=== PATIENT | female | born 1945 | race Caucasian/White ===

== ENCOUNTER 2017-11-19 20:22 | Observation (INO) | payer OTHER ==
[2017-11-19] MEDS ORDERED: ONDANSETRON 4 MG/2 ML VIAL IV PRN (20:31)
[2017-11-19] MEDS ORDERED: HYDROCODONE/APAP 7.5/325 MG TAB PO PRN (20:31)
[2017-11-19] MEDS ORDERED: ACETAMINOPHEN 500 MG TAB PO PRN ×2 (20:31→21:00)
[2017-11-19 21:02] VITALS: BMI 23.2
[2017-11-19] MEDS ORDERED: FENTANYL CITR 100 MCG/2 ML IV PRN (22:09)
[2017-11-19] MEDS: Levofloxacin500mg IV 500 MG/100 ML BAG IV SCH ×2 (22:50→22:52)
[2017-11-19] MEDS: NA CHLORIDE 0.9% 1,000 ML IV SCH (22:52)
[2017-11-20] MEDS: METRONIDAZOLE 500mg IVPB 500 MG/100 ML BAG IV SCH ×4 (00:29→17:44)
[2017-11-20 04:15] LABS: Absolute Lymphocytes (CBC) 0.8 K/uL (0.7-4.9); Absolute Monocytes 0.4 K/uL (0.1-1.3); Absolute Neutrophil 4.6 K/uL (1.8-8.0); Basophils % 0.3 % (0-1.3); Hematocrit 35.2 % (36.0-45.0); Lymphocytes % 13.2 % (15.3-44.8); MCH 33.8 pg (27.0-35.0); MCV 100.4 fL (80-100); MPV 9.2 fL (7.6-11.3); Monocytes % 6.2 % (3.3-12.3); RBC Red Blood Cell Count 3.51 M/uL (3.86-4.86)
[2017-11-20 04:25] LABS: Urine Appearance CLEAR; Urine Bilirubin NEGATIVE (NEG); Urine Blood 1+ (NEG); Urine Color YELLOW; Urine Glucose NEGATIVE (NEG); Urine Protein NEGATIVE (NEG); Urine Specific Gravity >=1.030 (1.005-1.030); Urine Urobilinogen 0.2 mg/dL (0.2-1.0); Urine pH 5.5 (5.0-7.0)
[2017-11-20 04:36] LABS: Albumin 2.7 g/dL (3.4-5.0); Bilirubin Total 0.6 mg/dL (0.2-1.0); Magnesium 1.7 mg/dL (1.8-2.4); Potassium 3.9 mmol/L (3.5-5.1); Protein, Total 6.3 g/dL (6.4-8.2)
[2017-11-20 04:37] LABS: Urine Microscopic Reflex ORDER UMIC
[2017-11-20 05:22] LABS: Urine Bacteria <20 /HPF (<20); Urine Culture Reflex Order NOT NEEDED; Urine RBC <5 /HPF (NONE SEEN)
[2017-11-20] MEDS ORDERED: MAGNESIUM SULFATE 1 gm IVPB 1 GM/100 ML BAG IV ONE (06:00)
--- NOTE | 2017-11-20 07:20 | P.HP ---
Certification for Inpatient Patient admitted to: Inpatient With expected LOS: >2 Midnights Patient will require the following post-hospital care: None Practitioner: I am a practitioner with admitting privileges, knowledge of patient current condition, hospital course, and medical plan of care. Services: Services provided to patient in accordance with Admission requirements found in Title 42 Section 412.3 of the Code of Federal Regulations Patient History Date of Service: 11/19/17 Reason for admission: Small-bowel obstruction History of Present Illness: Patient is a 72-year-old female came to the hospital with persistent small- bowel obstruction. Patient was in the hospital about a year ago with similar complaints. At that time, it was noted that patient had a transition point that was a little distal to the ileum. Patient was admitted to the hospital for further treatment. The mid able to keep the NG tube out and patient is having some bowel sounds. Patient also seems to be having flatus. Patient clinically appears to be doing well at this time. Will continue to monitor abdominal symptoms. Also monitor nausea and vomiting. Allergies adhesive Allergy (Mild, Verified 09/19/17 09:03) Blisters/rash codeine [Codeine] Adverse Reaction (Intermediate, Verified 11/19/17 21:54) Nausea/Vomiting Home Medications: Cyanocobalamin (Vitamin B-12) [Vitamin B-12] 5,000 mcg PO DAILY 08/24/14 Remicade 300 mg IV SEECOM 07/05/15 Folic Acid 0.8 mg PO DAILY 08/11/15 Biotin 10,000 mcg PO DAILY 01/26/16 Lutein 20 mg PO DAILY 03/09/16 Calcium Citrate/Vitamin D3 [Calcium Citrate-Vit D3 Tablet] 630 mg PO DAILY 06/06 Cholecalciferol (Vitamin D3) [Vitamin D 1000 Iu Tab*] 2,000 iu PO DAILY Ferrous Sulfate [Slow Fe] 45 mg PO SEECOM 06/06/16 Prolia 60 mg IM SEECOM 11/05/16 Methotrexate Inj [Methotrexate Sodium Inj*] 1 ml SQ SEECOM 09/19/17 - Past Medical/Surgical History Has patient received pneumonia vaccine in the past: Yes Diabetic: No -: Crohn's disease -: History of rectal bleeding (06/23/14) -: History of colon resection x2 due to bowel obstruction -: Appendectomy -: Tonsillectomy -: Colon resection x2 with anastomosis -: Right kneecap surgery -: Throat surgery Psychosocial/ Personal History: Patient is of 39 years. She has 2 children. She is retired. - Family History Father Medical History: Heart disease, Cancer - Social History Smoking Status: Never smoker Alcohol use: No CD- Drugs: No Caffeine use: No Place of Residence: Home Review of Systems 10-point ROS is otherwise unremarkable Physical Examination - Vital Signs Temperature: 97.2 F Blood Pressure: 117/56 Pulse: 75 Respirations: 14 Pulse Ox (%): 93 - Physical Exam General: Alert, In no apparent distress, Oriented x3 HEENT: Atraumatic, PERRLA, Mucous membr. moist/pink, EOMI, Sclerae nonicteric Neck: Supple, 2+ carotid pulse no bruit, No LAD, Without JVD or thyroid abnormality Respiratory: Clear to auscultation bilaterally, Normal air movement Cardiovascular: Regular rate/rhythm, Normal S1 S2, No murmurs Gastrointestinal: Normal bowel sounds, Soft and benign, Non-distended, No tenderness Musculoskeletal: No clubbing, No swelling, No tenderness Integumentary: No rashes Neurological: Normal gait, Normal speech, Normal strength at 5/5 x4 extr, Normal tone, Sensation intact, Cranial nerves 3-12 intact, Normal affect Lymphatics: No axilla or inguinal lymphadenopathy - Studies Laboratory Data (last 24 hrs) 11/20/17 03:34: Sodium 138, Potassium 3.9, BUN 12, Creatinine 0.70, Glucose 127 H, Phosphorus 4.0, Magnesium 1.7 L, Total Bilirubin 0.6, AST 20, ALT 17, Alkaline Phosphatase 33 L 11/20/17 03:34: WBC 5.8 D, Hgb 11.9 L, Hct 35.2 L, Plt Count 193 Assessment & Plan - Problems (Diagnosis) (1) Crohns disease Onset Date: 06/28/14 Current Visit: No Status: Acute Qualifiers: Gastrointestinal tract location: small and large intestine Digestive disease complication type: with intestinal obstruction Qualified Code(s): K50.812 - Crohn's disease of both small and large intestine with intestinal obstruction (2) Small bowel obstruction Onset Date: 06/28/14 Current Visit: No Status: Acute - Plan Plan: 1. NPO 2. IV fluids 3. Pain control 4. Monitor labs 5. GI and General surgery consultation 6. GI and DVT prophylaxis Discharge Plan: Home Plan to discharge in: Greater than 2 days - Advance Directives Does patient have a Living Will: Yes Does patient have a Durable POA for Healthcare: Yes - Code Status/Comfort Care Code Status Assessed: No Code Status: Full Code Critical Care: No Time Spent Managing PTS Care (In Minutes): 50
[2017-11-20] MEDS ORDERED: KCL 20 MEQ/100 mL IVPB 20 MEQ/100 ML BAG IV SCH (08:00)
[2017-11-20] MEDS ORDERED: ENOXAPARIN 30 MG/0.3 ML SQ SCH (09:00)
[2017-11-20] MEDS ORDERED: POTASSIUM CL SA 10 MEQ TAB PO ONE (09:13)
--- NOTE | 2017-11-20 10:34 | P.PN ---
Subjective Date of Service: 11/20/17 Primary Care Provider: Dr. Flores/Dr. Arroyo Chief Complaint: Small-bowel obstruction Subjective: Improving (Patient had BM this am. No more pain noted) Physical Examination - Vital Signs Temperature: 98.8 F Blood Pressure: 118/62 Pulse: 69 Respirations: 18 Pulse Ox (%): 98 - Physical Exam General: Alert, In no apparent distress, Oriented x3, Cooperative HEENT: Atraumatic, Mucous membr. moist/pink Neck: Supple Respiratory: Clear to auscultation bilaterally, Normal air movement Cardiovascular: Normal pulses, Regular rate/rhythm Gastrointestinal: Normal bowel sounds, Soft and benign, Non-distended, No tenderness, No masses, No rebound, No guarding Musculoskeletal: No erythema, No tenderness, No warmth Integumentary: No tenderness/swelling, No erythema, No warmth, No cyanosis Neurological: Normal speech, Normal strength at 5/5 x4 extr, Normal tone, Normal affect - Studies Laboratory Data (last 24 hrs) 11/20/17 03:34: Sodium 138, Potassium 3.9, BUN 12, Creatinine 0.70, Glucose 127 H, Phosphorus 4.0, Magnesium 1.7 L, Total Bilirubin 0.6, AST 20, ALT 17, Alkaline Phosphatase 33 L 11/20/17 03:34: WBC 5.8 D, Hgb 11.9 L, Hct 35.2 L, Plt Count 193 Medications List Reviewed: Yes Assessment & Plan - Problems (Diagnosis) (1) Anemia, iron deficiency Onset Date: 06/28/14 Current Visit: No Status: Chronic Plan: Will monitor closely. Will restart Iron once able to take oral well. Qualifiers: Iron deficiency anemia type: unspecified iron deficiency Qualified Code(s) : D50.9 - Iron deficiency anemia, unspecified (2) Crohns disease Onset Date: 06/28/14 Current Visit: No Status: Chronic Plan: Patient with history of Crohn's. Abdominal pain better. Will check for C. Diff. Will continue with IV antibiotics. Will advance diet. Will discuss with GI. Case discussed with Surgery. No intervention needed. Qualifiers: Gastrointestinal tract location: small and large intestine Digestive disease complication type: with intestinal obstruction Qualified Code(s): K50.812 - Crohn's disease of both small and large intestine with intestinal obstruction (3) Small bowel obstruction Onset Date: 06/28/14 Current Visit: No Status: Acute Plan: Much improved. Appears resolved. Continue with IV fluid and antibiotics. Will advance diet. Case discussed with Surgery. Will discuss with GI. Discharge Plan: Home Plan to discharge in: 24 Hours Time Spent Managing Pts Care (In Minutes): 55
[2017-11-20] MEDS: NA CHLORIDE 0.9% 1,000 ML IV SCH ×3 (12:08→20:26)
[2017-11-20 22:41] VITALS: O2SAT 94
[2017-11-21] MEDS ORDERED: BENZONATATE 100 MG CAP PO PRN
[2017-11-21 04:44] LABS: Absolute Lymphocytes (CBC) 1.7 K/uL (0.7-4.9); Absolute Monocytes 0.9 K/uL (0.1-1.3); Absolute Neutrophil 5.2 K/uL (1.8-8.0); Basophils % 0.4 % (0-1.3); Eosinophils % 2.9 % (0-4.4); Hematocrit 36.6 % (36.0-45.0); Lymphocytes % 21.1 % (15.3-44.8); MCH 33.3 pg (27.0-35.0); MCV 101.7 fL (80-100); MPV 9.3 fL (7.6-11.3); Monocytes % 11.3 % (3.3-12.3)
[2017-11-21 04:50] LABS: Bilirubin Total 0.6 mg/dL (0.2-1.0); Potassium 3.9 mmol/L (3.5-5.1); Protein, Total 6.4 g/dL (6.4-8.2)
[2017-11-21] MEDS ORDERED: POTASSIUM 25 MEQ EFFERV TAB PO ONE (04:57)
[2017-11-21 05:33] VITALS: TEMP 97.4
[2017-11-21] MEDS: METRONIDAZOLE 500mg IVPB 500 MG/100 ML BAG IV SCH ×2 (05:35)
[2017-11-21] MEDS ORDERED: PANTOPRAZOLE 40MG TABLET PO SCH (06:30)
--- NOTE | 2017-11-21 08:18 | P.DS ---
Admission Date: 11/19/17 Discharge Date: 11/21/17 Primary Care Provider: Dr. Flores/Dr. Arroyo Disposition: ROUTINE DISCHARGE Discharge Condition: GOOD Reason for Admission: Small-bowel obstruction Consultations: GI-Dr. Arroyo Surgery-Dr. Dow Procedures: CT scan: COMPARISON: November 2016 TECHNIQUE: Computed axial tomography of the abdomen and pelvis was obtained. 100 cc Isovue-300 is administered intravenously. Oral contrast was given. All CT scans are performed using dose optimization technique as appropriate and may include automated exposure control or mA/KV adjustment according to patient size. FINDINGS: The liver, spleen, pancreas, adrenals and kidneys appear unremarkable. Postsurgical changes involve the bowel. Jejunum and most of the ileum are moderately dilated. The very distal ileum is decompressed. The colon is decompressed. Free air is not noted. IMPRESSION: Moderate distal small bowel obstruction - Problems (1) Anemia, iron deficiency Onset Date: 06/28/14 Current Visit: No Status: Chronic Qualifiers: Iron deficiency anemia type: unspecified iron deficiency Qualified Code(s) : D50.9 - Iron deficiency anemia, unspecified (2) Crohns disease Onset Date: 06/28/14 Current Visit: No Status: Chronic Qualifiers: Gastrointestinal tract location: small and large intestine Digestive disease complication type: with intestinal obstruction Qualified Code(s): K50.812 - Crohn's disease of both small and large intestine with intestinal obstruction (3) Small bowel obstruction Onset Date: 06/28/14 Current Visit: No Status: Acute Brief History of Present Illness: 72-year-old female present emergency room after she was evaluated by her GI specialist in found to have small bowel obstruction. Patient was admitted for treatment. Hospital Course: CT scan showed moderate distal small bowel obstruction. The patient was treated in the hospital. She received IV fluids. She also was started on antibiotic therapy. The patient did well during the stay. Her obstruction resolved. Patient was evaluated by GI and surgery. No surgical intervention was required. Patient was able to tolerate her diet at discharge. She was ambulating well. At discharge she will continue with a soft diet. She may advance as tolerated. Patient with history of Crohn's colitis. Patient will follow up with GI in 1 week to follow up this hospitalization. Patient will likely need colonoscopy in 4-6 weeks to monitor her progress. Vital Signs/Physical Exam: Temp Pulse Resp BP Pulse Ox 97.4 F 76 16 143/67 H 95 11/21/17 04:00 11/21/17 04:00 11/21/17 04:00 11/21/17 04:00 11/21/17 04:00 General: Alert, In no apparent distress, Oriented x3, Cooperative HEENT: Atraumatic, Mucous membr. moist/pink Neck: Supple, No Thyromegaly Respiratory: Clear to auscultation bilaterally, Normal air movement Cardiovascular: Normal pulses, Regular rate/rhythm Gastrointestinal: Normal bowel sounds, Soft and benign, Non-distended, No ascites, No tenderness, No masses, No rebound, No guarding Musculoskeletal: No erythema, No tenderness, No warmth Integumentary: No tenderness/swelling, No erythema, No warmth, No cyanosis Neurological: Normal speech, Normal strength at 5/5 x4 extr, Normal tone, Normal affect Lymphatics: No axilla or inguinal lymphadenopathy Laboratory Data at Discharge: WBC 8.1 K/uL (4.3-10.9) D 11/21/17 03:55 Hgb 12.0 g/dL (12.0-15.0) 11/21/17 03:55 Hct 36.6 % (36.0-45.0) 11/21/17 03:55 Plt Count 174 K/uL (152-406) 11/21/17 03:55 Sodium 142 mmol/L (136-145) 11/21/17 03:55 Potassium 3.9 mmol/L (3.5-5.1) 11/21/17 03:55 BUN 8 mg/dL (7-18) 11/21/17 03:55 Creatinine 0.70 mg/dL (0.55-1.3) 11/21/17 03:55 Glucose 90 mg/dL (74-106) 11/21/17 03:55 Phosphorus 4.0 mg/dL (2.5-4.9) 11/20/17 03:34 Magnesium 2.0 mg/dL (1.8-2.4) 11/21/17 03:55 Total Bilirubin 0.6 mg/dL (0.2-1.0) 11/21/17 03:55 AST 22 U/L (15-37) 11/21/17 03:55 ALT 14 U/L (12-78) 11/21/17 03:55 Alkaline Phosphatase 33 U/L (45-117) L 11/21/17 03:55 Home Medications: Cyanocobalamin (Vitamin B-12) [Vitamin B-12] 5,000 mcg PO DAILY 08/24/14 Remicade 300 mg IV SEECOM 07/05/15 Folic Acid 0.8 mg PO DAILY 08/11/15 Biotin 10,000 mcg PO DAILY 01/26/16 Lutein 20 mg PO DAILY 03/09/16 Calcium Citrate/Vitamin D3 [Calcium Citrate-Vit D3 Tablet] 630 mg PO DAILY 06/06 Cholecalciferol (Vitamin D3) [Vitamin D 1000 Iu Tab*] 2,000 iu PO DAILY Ferrous Sulfate [Slow Fe] 45 mg PO SEECOM 06/06/16 Prolia 60 mg IM SEECOM 11/05/16 Methotrexate Inj [Methotrexate Sodium Inj*] 1 ml SQ SEECOM 09/19/17 Patient Discharge Instructions: 1. Patient will need a follow up with her PCP in 1 week to follow up this hospitalization. 2. Patient presented with abdominal pain to have distal small-bowel obstruction. This resolved. Patient seen by GI and surgery. No intervention required. At discharge she is without any abdominal pain. She will continue with a soft diet and advance as tolerated. Patient will follow up with GI in 1 week to follow up her care. Patient may require colonoscopy in the future. Patient with history of Crohn's colitis. She will continue with her other medication. Diet: soft GI Activity: Ad carlton Time spent managing pt's care (in minutes): 55
[2017-11-21 09:12] VITALS: BP 137/76
--- NOTE | 2017-11-27 23:48 | CON ---
Date of Consultation: 11/20/2017 Reason For Consultation: Left lower quadrant pain with small bowel obstruction and Crohn's flare. History Of Present Illness: This patient is a 72-year-old white female with history of Crohn disease and status post multiple small bowel obstructions in the past. The patient stated that she was in [facility] until she went to [employer] sandwich when she was on vacation, ate a [employer] sandwich with beef, lettuce, tomatoes, mayonnaise, and pickles. The patient states she has eaten some lettuce at home without difficulty. She thinks it may have been the lettuce pickles or other. That resulted in her having a flare. Within an hour, she began having left lower quadran t pain, it increased to 10/10; nausea; vomiting; fevers; and chills. She came to GI office, was give n some steroids and started her on antibiotics. CT scan was ordered. CT scan revealed a moderate sm all bowel obstruction at distal ileum. The patient was admitted to the hospital for further manageme nt and care. 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 Past Surgical History: Appendectomy, tonsillectomy, , abscess removal, perineal abscess, an d PillCam removed endoscopically being stuck in terminal ileum due to strictures. Medications: Include Remicade, methotrexate, vitamin B12, Zegerid, Os-Mckinley D, and folate. Allergies: CODEINE CAUSES NAUSEA AND VOMITING. Social History: She is . Lives at home with her . She is retired. No tobacco. No a lcohol. Review of Systems: The patient has had left lower quadrant pain 10/10 on admission, now down to 0; nausea; vomiting; fev ers; and chills. She feels 90% better, she says, already since admission yesterday. Flatus before a dmission was minimal. Now, she has flatus and bowel movements, she reports. She denies any melena, hematochezia, hematemesis, coffee-ground emesis, hematuria, dysuria, polydipsia, or hemoptysis. No c hest pain, shortness of breath, seizure, syncope, lower extremity paresthesias, muscle aches, joint a ches, or backaches. Physical Examination: Vital Signs: The patient is afebrile. Vital signs are stable. On the , she had a temperature o f 98.8 degrees Fahrenheit, pulse 69, respirations 18, blood pressure 118/62, and O2 saturation 98%, a nd she is 5 feet 3 inches, 131 pounds, and BMI of 23.2. HEENT: Normocephalic, atraumatic. Anicteric. Pupils are equal, round, and reactive to light. Extr aocular movements are intact. Oropharynx is clear. Neck: Supple. No masses. Thyroid two times normal size. Respirations: Clear to auscultation bilaterally. Cardiac: Regular rate and rhythm. No gallops or rubs. Abdomen: Positive bowel sounds. Soft, maybe some mild tympany, but no peritoneal Maharaj sign. No r ebound. Extremities: No clubbing, cyanosis, or edema. 2+ pulses. Neuro: Alert and oriented x3. Grossly nonfocal. 5/5 motor strength. Sensation to light touch. Laboratory Data: The patient has a white count of 5.8, down from 9.2 the day prior; hemoglobin 11.9; hematocrit 35.2; MCV of 100; platelet count of 193; polys of 80%; lymphocytes 13%; and monocytes 6%. Sodium 138, potassium 3.9, chloride 108, bicarb 28, BUN is 12, creatinine of 0.7, glucose 127, calc ium 8.0, phosphorus 4.0, total bilirubin 0.6, and magnesium 1.7. AST of 20, ALT of 17, and alkaline phosphatase 33. Total protein 6.3; albumin 2.7; amylase 74, normal; lipase 178 and was normal. On t he , UA had 2+ ketones, trace blood, otherwise negative. Imaging: CT abdomen and pelvis reveals moderate distal small bowel obstruction in the ileum. The je junum was moderately dilated as well as some very distal ileum appears to be compressed pr obable. Impression: Small bowel obstruction in the distal ileum, Crohn disease flare after eating sandwich with beef, lettuce, tomatoes, mayonnaise, and large pickle she states. Pain was 10/10 in t he left lower quadrant prior to admission, now down to none on therapy including IV antibiotics, IV s teroids, and IV fluids. She had nausea, vomiting, fevers, chills, and feels 90% better since [facility] admission. Minimal flatus prior to admission, now with flatus and bowel movements. Recommendations: 1.Continue IV fluids, IV antibiotics, and IV steroids. 2.Continue Remicade and methotrexate as an outpatient. 3.Diet to advance slowly to include full liquids, low-residue diet. 4.GI Clinic followup next week. LESIA/MARTELL Voice ID: [id number] Report ID: [id number]
== END 2017-11-21 10:24 | disposition home or self-care (01) ==
LOC: INTOOBSV 20:24 → 4TH 20:24
PROVIDERS: ADMIT Hospitalist; ATTEND Family Medicine
DX: K50.812 Crohn's disease of both small and large intestine with intestinal obstruction (principal); D50.9 Iron deficiency anemia, unspecified; Z79.899 Other long term (current) drug therapy; Z88.5 Allergy status to narcotic agent; Z91.048 Other nonmedicinal substance allergy status
CPT/HCPCS: 36415; 74177; 80053; 81003; 81015; 82150; 83690; 83735; 84100; 85025; 85652; G0378; G0379; J1650; J3010; J3475; J7030; Q9967

== ENCOUNTER 2018-04-21 08:31 | Day surgery (SDC) | payer OTHER ==
[2018-04-21] MEDS ORDERED: NA CHLORIDE 0.9% IV ONE (09:00)
[2018-04-21] MEDS ORDERED: INFLIXIMAB DYYB IV ONE (09:00)
[2018-04-21] MEDS ORDERED: NA CHLORIDE 0.9% 250 ML ONE (09:03)
[2018-04-21 09:13] VITALS: BMI 22.8
[2018-04-21 11:44] VITALS: O2SAT 96
[2018-04-21 11:46] VITALS: BP 113/59; TEMP 97.7
== END 2018-04-21 11:42 | disposition home or self-care (01) ==
LOC: DS 08:31
PROVIDERS: ATTEND Internal Medicine Gastroenterology
DX: K50.90 Crohn's disease, unspecified, without complications (principal)
CPT/HCPCS: 96365; 96366; Q5103

== ENCOUNTER 2018-05-23 08:27 | Emergency (ER) | payer OTHER ==
[2018-05-23 09:28] LABS: Absolute Monocytes 0.9 K/uL (0.1-1.3); Absolute Neutrophil 7.1 K/uL (1.8-8.0); Basophils % 0.3 % (0-1.3); Eosinophils % 1.2 % (0-4.4); Hematocrit 37.9 % (36.0-45.0); Lymphocytes % 10.6 % (15.3-44.8); MCH 34.2 pg (27.0-35.0); MCV 98.9 fL (80-100); MPV 8.7 fL (7.6-11.3); Monocytes % 10.2 % (3.3-12.3); RBC Red Blood Cell Count 3.83 M/uL (3.86-4.86)
[2018-05-23 09:46] LABS: Albumin 3.1 g/dL (3.4-5.0); Bilirubin Direct 0.3 mg/dL (0-0.2); Bilirubin Total 1.2 mg/dL (0.2-1.0); Potassium 3.8 mmol/L (3.5-5.1); Protein, Total 6.9 g/dL (6.4-8.2)
--- NOTE | 2018-05-23 11:21 | RAD REPORT ---
EXAM DESCRIPTION: CT - Abdomen Pelvis W Contrast - 05/23/2018 11:07 am CLINICAL HISTORY: Abdominal pain. COMPARISON: November 2017 TECHNIQUE: Computed axial tomography of the abdomen and pelvis was obtained. 100 cc Isovue-300 is ad ministered intravenously. Oral contrast was given. All CT scans are performed using dose optimization technique as appropriate and may include automated exposure control or mA/KV adjustment according to patient size. FINDINGS: The liver, spleen, pancreas, adrenals and kidneys appear unremarkable. The wall of the terminal ileum is moderately thickened. Mild to moderate thickening of several additi onal loops of small bowel wall present. Several loops are borderline dilated. A discrete transitional point is not noted. Wall of the rectum is mildly thickened. Curvilinear increased density involving the rectum may be rel ated to suture. Free air is not noted Mild gallbladder distention is unchanged IMPRESSION: Mild to moderate small bowel wall thickening consistent with Crohn's disease. Mild dilat ation of several small bowel loops may be related to stricture/ileus.
--- NOTE | 2018-05-23 13:23 | ER ---
Nurse's Notes [facility] Name: Jv Sepulveda Age: 73 yrs Sex: Female : 1945 Arrival Date: 05/23/2018 Time: 08:32 Bed 15 Private MD: Benjamin Flores Diagnosis: Crohn's disease of large intestine Presentation: 05/23 08:40 Presenting complaint: Patient states: i have Crohns disease, last Saturday, i started hj this flare up episode, abd cramps Left lower abd pain, N/V pain of 10/10; vomited x 1 today, denies diarrhea; denies fever and chills;. Transition of care: patient was not received from another setting of care. Onset of symptoms was May 23, 2018. Risk Assessment: Do you want to hurt yourself or someone else? Patient reports no desire to harm self or others. Initial Sepsis Screen: Does the patient meet any 2 criteria? No. Patient's initial sepsis screen is negative. Does the patient have a suspected source of infection? Yes: Other: possible Chron's disease. Care prior to arrival: None. 08:40 Method Of Arrival: Ambulatory 08:40 Acuity: MAGED 3 Triage Assessment: 08:45 General: Appears in no apparent distress. uncomfortable, Behavior is calm, cooperative, hj appropriate for age. Pain: Complains of pain in abdomen. EENT: No signs and/or symptoms were reported regarding the EENT system. Neuro: Level of Consciousness is awake, alert, obeys commands, Oriented to person, place, time, situation, Appropriate for age. Cardiovascular: Heart tones S1 S2 present Capillary refill < 3 seconds Patient's skin is warm and dry. Respiratory: Airway is patent Respiratory effort is even, unlabored, Respiratory pattern is regular, symmetrical. GI: Reports lower abdominal pain, nausea, vomiting. : No signs and/or symptoms were reported regarding the genitourinary system. Derm: No signs and/or symptoms reported regarding the dermatologic system. Musculoskeletal: No signs and/or symptoms reported regarding the musculoskeletal system. Historical: - Allergies: 08:44 Codeine; hj - Home Meds: 08:44 calcium citrate 630 mg Oral gran daily [Active]; Vitamin D 2000 IU Oral daily [Active]; Vitamin B-12 500 mcg Oral lozg daily [Active]; folic acid 800 mcg Oral tab 1 tab once daily [Active]; biotin 10,000 mcg Oral cap daily [Active]; lutein 20 mg Oral tab daily [Active]; Slow Fe 45 mg Oral daily [Active]; Remicade 100 mg intravenous solr every 6 wks [Active]; methotrexate sodium (PF) 1 gram injection solr once wkly [Active]; Premarin 25 mg injection solr [Active]; - PMHx: 08:44 chrons disease; hj - PSHx: 08:44 colon surgery; Appendectomy; Cholecystectomy; Knee surgery; hj - Immunization history:: Adult Immunizations up to date. - Social history:: Smoking status: Patient/guardian denies using tobacco, Patient/guardian denies using alcohol. - Ebola Screening: : Patient negative for fever greater than or equal to 101.5 degrees Fahrenheit, and additional compatible Ebola Virus Disease symptoms Patient denies exposure to infectious person Patient denies travel to an Ebola-affected area in the 21 days before illness onset. Screenin:46 Abuse screen: Denies threats or abuse. Denies injuries from another. Nutritional hj screening: No deficits noted. Tuberculosis screening: No symptoms or risk factors identified. Fall Risk None identified. Assessment: 08:46 GI: Bowel sounds present X 4 quads. hj 08:47 Reassessment: see triage for assessment;. hj 09:40 Reassessment: called polysom tech; pt finished contrast;. hj 11:29 Reassessment: Patient appears in no apparent distress at this time. No changes from la1 previously documented assessment. Patient and/or family updated on plan of care and expected duration. Pain level reassessed. Patient is alert, oriented x 3, equal unlabored respirations, skin warm/dry/pink. Vital Signs: 08:47 BP 121 / 71; Pulse 80; Resp 18; Temp 97.2(TE); Pulse Ox 100% on R/A; Weight 58.51 kg; hj Height 5 ft. 3 in. (160.02 cm); Pain 10/10; 10:53 BP 121 / 73; Pulse 71; Resp 18; Pulse Ox 98% on R/A; la1 12:13 BP 122 / 69; Pulse 72; Resp 17; Pulse Ox 98% on R/A; mh5 13:03 BP 117 / 59; Pulse 71; Resp 16; Pulse Ox 95% on R/A; mh5 08:47 Body Mass Index 22.85 (58.51 kg, 160.02 cm) ED Course: 08:32 Patient arrived in ED. mr 08:32 Benjamin Flores MD is Private Physician. mr 08:39 [facility] snw 08:39 Oscar Gandhi MD is Attending Physician. snw 08:40 Ajith Pete, BALA is Primary Nurse. hj 08:41 Triage completed. hj 08:46 Arm band placed on right wrist. hj 08:46 Patient has correct armband on for positive identification. Placed in gown. Bed in low hj position. Call light in reach. Side rails up X 1. Adult w/ patient. 09:20 Initial lab(s) drawn, by az, sent to lab. First set of blood cultures drawn by az. hj 09:23 Inserted saline lock: 22 gauge in right forearm, using aseptic technique. Blood hj collected. 09:34 Second set of blood cultures drawn by me. hj 09:44 Report given to BALA Angelo. hj 10:00 Petey Brannon, RN is Primary Nurse. la1 11:05 CT completed. Patient tolerated procedure well. Patient moved to CT via wheelchair. Patient moved back from CT. 11:09 CT Abd/Pelvis - W/Contrast In Process Unspecified. EDMS 13:20 Benjamin Flores MD is Referral Physician. snw 13:27 IV discontinued, Pressure dressing applied. 5 13:28 No provider procedures requiring assistance completed. IV discontinued, bleeding la1 controlled, No redness/swelling at site. Pressure dressing applied. Administered Medications: 09:32 Drug: fentaNYL (PF) 25 mcg Route: IVP; Site: right forearm; hj 13:28 Follow up: Response: No adverse reaction; Pain is decreased la1 09:32 Drug: Phenergan 6.25 mg Route: IVP; Site: right forearm; hj 13:28 Follow up: Response: No adverse reaction la1 09:33 Drug: NS 0.9% 500 ml Route: IV; Rate: bolus; Site: right forearm; hj 10:30 Follow up: IV Status: Infusion continued la1 09:33 Drug: NS 0.9% 1000 ml Route: IV; Rate: 125 ml/hr; Site: right forearm; hj 13:29 Follow up: IV Status: Completed infusion la1 Outcome: 13:22 Discharge ordered by . hans 13:28 Discharged to home ambulatory. la1 13:28 Condition: stable 13:28 Discharge instructions given to patient, Instructed on discharge instructions, follow up and referral plans. medication usage, Demonstrated understanding of instructions, follow-up care, medications, Prescriptions given X 1. 13:29 Patient left the ED. la1 Signatures: Dispatcher [employer] EDMS Rand Mackay, CHENGC STAMP MOUNTER-Monae Downs mr Ayoub, Petey Schilling, RN RN la1 Ajith Pete RN BALA Amber Jaquez [facility] Corrections: (The following items were deleted from the chart) 09:51 08:40 Initial Sepsis Screen: Does the patient meet any 2 criteria? No. Patient's hj initial sepsis screen is negative. Does the patient have a suspected source of infection? No. Patient's initial sepsis screen is negative.
--- NOTE | 2018-05-23 13:24 | EDPHYS ---
Physician Documentation [facility] Name: Jv Sepulveda Age: 73 yrs Sex: Female : 1945 Arrival Date: 05/23/2018 Time: 08:32 Bed 15 Private MD: Benjamin Flores ED Physician Oscar Gandhi HPI: 05/23 08:57 This 73 yrs old Female presents to ER via Ambulatory with complaints of snw Abdominal Pain. 08:57 The patient presents with abdominal pain in the left lower quadrant. Onset: The snw symptoms/episode began/occurred suddenly, 3 day(s) ago, and became worse and became persistent. The symptoms do not radiate. Associated signs and symptoms: Pertinent positives: nausea and vomiting. The symptoms are described as steady, twisting. Severity of pain: At its worst the pain was moderate severe. The patient has experienced similar episodes in the past, a few times, with bowel obs. The patient has not recently seen a physician. sees Dr. Flores and Dr. Arroyo. Hx of crohn's. Historical: - Allergies: 08:44 Codeine; hj - Home Meds: 08:44 calcium citrate 630 mg Oral gran daily [Active]; Vitamin D 2000 IU Oral daily [Active]; hj Vitamin B-12 500 mcg Oral lozg daily [Active]; folic acid 800 mcg Oral tab 1 tab once daily [Active]; biotin 10,000 mcg Oral cap daily [Active]; lutein 20 mg Oral tab daily [Active]; Slow Fe 45 mg Oral daily [Active]; Remicade 100 mg intravenous solr every 6 wks [Active]; methotrexate sodium (PF) 1 gram injection solr once wkly [Active]; Premarin 25 mg injection solr [Active]; - PMHx: 08:44 chrons disease; hj - PSHx: 08:44 colon surgery; Appendectomy; Cholecystectomy; Knee surgery; hj - Immunization history:: Adult Immunizations up to date. - Social history:: Smoking status: Patient/guardian denies using tobacco, Patient/guardian denies using alcohol. - Ebola Screening: : Patient negative for fever greater than or equal to 101.5 degrees Fahrenheit, and additional compatible Ebola Virus Disease symptoms Patient denies exposure to infectious person Patient denies travel to an Ebola-affected area in the 21 days before illness onset. ROS: 08:57 Constitutional: Negative for fever and weight loss, + chills Eyes: Negative for injury, snw pain, redness, and discharge, ENT: Negative for injury, pain, and discharge, Neck: Negative for injury, pain, and swelling, Cardiovascular: Negative for chest pain, palpitations, and edema, Respiratory: Negative for shortness of breath, cough, wheezing, and pleuritic chest pain, Back: Negative for injury and pain, : Negative for injury, bleeding, discharge, and swelling, MS/Extremity: Negative for injury and deformity, Skin: Negative for injury, rash, and discoloration, Neuro: Negative for headache, weakness, numbness, tingling, and seizure. 08:57 Abdomen/GI: Positive for abdominal pain, nausea and vomiting, Negative for hematemesis, black/tarry stool, rectal pain, rectal bleeding. Exam: 08:56 Constitutional: This is a well developed, well nourished patient who is awake, alert, snw and in no acute distress. Head/Face: Normocephalic, atraumatic. Eyes: Pupils equal round and reactive to light, extra-ocular motions intact. Lids and lashes normal. Conjunctiva and sclera are non-icteric and not injected. Cornea within normal limits. Periorbital areas with no swelling, redness, or edema. ENT: Nares patent. No nasal discharge, no septal abnormalities noted. Tympanic membranes are normal and external auditory canals are clear. Oropharynx with no redness, swelling, or masses, exudates, or evidence of obstruction, uvula midline. Mucous membranes moist. Neck: Trachea midline, no thyromegaly or masses palpated, and no cervical lymphadenopathy. Supple, full range of motion without nuchal rigidity, or vertebral point tenderness. No Meningismus. Chest/axilla: Normal chest wall appearance and motion. Nontender with no deformity. No lesions are appreciated. Cardiovascular: Regular rate and rhythm with a normal S1 and S2. No gallops, murmurs, or rubs. Normal PMI, no JVD. No pulse deficits. Respiratory: Lungs have equal breath sounds bilaterally, clear to auscultation and percussion. No rales, rhonchi or wheezes noted. No increased work of breathing, no retractions or nasal flaring. Back: No spinal tenderness. No costovertebral tenderness. Full range of motion. Skin: Warm, dry with normal turgor. Normal color with no rashes, no lesions, and no evidence of cellulitis. MS/ Extremity: Pulses equal, no cyanosis. Neurovascular intact. Full, normal range of motion. Neuro: Awake and alert, GCS 15, oriented to person, place, time, and situation. Cranial nerves II-XII grossly intact. Motor strength 5/5 in all extremities. Sensory grossly intact. Cerebellar exam normal. Normal gait. Psych: Awake, alert, with orientation to person, place and time. Behavior, mood, and affect are within normal limits. 08:56 Abdomen/GI: Inspection: abdomen appears normal, Bowel sounds: diminished, in all quadrants, Palpation: moderate abdominal tenderness, in the left lower quadrant. Vital Signs: 08:47 BP 121 / 71; Pulse 80; Resp 18; Temp 97.2(TE); Pulse Ox 100% on R/A; Weight 58.51 kg; hj Height 5 ft. 3 in. (160.02 cm); Pain 10/10; 10:53 BP 121 / 73; Pulse 71; Resp 18; Pulse Ox 98% on R/A; la1 12:13 BP 122 / 69; Pulse 72; Resp 17; Pulse Ox 98% on R/A; mh5 13:03 BP 117 / 59; Pulse 71; Resp 16; Pulse Ox 95% on R/A; mh5 08:47 Body Mass Index 22.85 (58.51 kg, 160.02 cm) MDM: 08:40 Patient medically screened. snw 11:41 Data reviewed: vital signs, nurses notes. Data interpreted: Pulse oximetry: on room air snw is 98 %. Interpretation: normal. Counseling: I had a detailed discussion with the patient and/or guardian regarding: the historical points, exam findings, and any diagnostic results supporting the discharge/admit diagnosis, lab results, radiology results. Physician consultation: Malu Nair MD was called at 11:42, was contacted at 11:42, regarding patient's condition, possible admission, increased IVF, done. 11:42 Special discussion: pt states post CT she had BM, is feeling much better. Okay with snw plan to give additional IVF and po challenge and discharge from ED with reglan . 05/23 08:56 Order name: Basic Metabolic Panel; Complete Time: 09:51 snw 05/23 08:56 Order name: CBC with Diff; Complete Time: 09:30 snw 05/23 08:56 Order name: Creatinine for Radiology; Complete Time: 09:44 snw 05/23 08:56 Order name: Hepatic Function; Complete Time: 09:51 snw 05/23 08:56 Order name: Lipase; Complete Time: 09:51 snw 05/23 08:56 Order name: Blood Culture Adult (2) snw 05/23 08:56 Order name: IV Saline Lock; Complete Time: 09:24 snw 05/23 08:56 Order name: Labs collected and sent; Complete Time: 09:24 snw 05/23 08:56 Order name: CT Abd/Pelvis - W/Contrast; Complete Time: 11:25 snw 05/23 11:41 Order name: Misc. Order: rate increased to 250ml/hr; Complete Time: 11:41 snw Administered Medications: 09:32 Drug: fentaNYL (PF) 25 mcg Route: IVP; Site: right forearm; hj 13:28 Follow up: Response: No adverse reaction; Pain is decreased la1 09:32 Drug: Phenergan 6.25 mg Route: IVP; Site: right forearm; hj 13:28 Follow up: Response: No adverse reaction la1 09:33 Drug: NS 0.9% 500 ml Route: IV; Rate: bolus; Site: right forearm; hj 10:30 Follow up: IV Status: Infusion continued la1 09:33 Drug: NS 0.9% 1000 ml Route: IV; Rate: 125 ml/hr; Site: right forearm; hj 13:29 Follow up: IV Status: Completed infusion la1 Disposition: 15:56 Co-signature as Attending Physician, Oscar Gandhi MD. rn Disposition: 05/23/18 13:22 Discharged to Home. Impression: Crohn's disease of large intestine. - Condition is Stable. - Discharge Instructions: Abdominal Pain, Adult, Crohn Disease. - Prescriptions for Reglan 10 mg Oral Tablet - take 1 tablet by ORAL route every 8 hours take 30 minutes before meals and at bedtime; 16 tablet. - Medication Reconciliation Form, Thank You Letter, Antibiotic Education, Prescription Opioid Use form. - Follow up: Benjamin Flores MD; When: 2 - 3 days; Reason: Recheck today's complaints, Continuance of care, Re-evaluation by your physician. Follow up: Emergency Department; When: As needed; Reason: Worsening of condition. Signatures: Dispatcher [employer] EDRand Vargas, EULALIA FIELD SUPPORT REPRESENTATIVE-Csnw Oscar Gandhi MD MD rn Attema, Lee, RN RN la1 Ajith Pete RN RN Corrections: (The following items were deleted from the chart) 13:29 13:22 05/23/2018 13:22 Discharged to Home. Impression: Crohn's disease of large la1 intestine. Condition is Stable. Forms are Medication Reconciliation Form, Thank You Letter, Antibiotic Education, Prescription Opioid Use. Follow up: Benjamin Flores; When: 2 - 3 days; Reason: Recheck today's complaints, Continuance of care, Re-evaluation by your physician. Follow up: Emergency Department; When: As needed; Reason: Worsening of condition. snw
[2018-05-23 13:44] VITALS: TEMP 97.2
[2018-05-23 13:47] VITALS: BP 117/59; O2SAT 95
--- OUTSIDE RECORDS SUMMARY | 2018-05-23 18:16 | XMS REPORT | Continuity of Care Document ---
:1945 Author Organization Interface Problems Problem Status Onset Classification Date Comments Source Date Reported Chest pain Active 06/07/19 Finding 09/19/2017 [facility] [place] Crohns disease Active 06/28/19 Finding 09/19/2017 [facility] [place] Anemia, iron Active 06/28/19 Finding 09/19/[address] [facility] deficiency 15 - [place] Small bowel Active 06/28/19 Finding 09/19/[address] [facility] obstruction 15 - [place] Abnormal CT of Active Finding 09/19/[address] [facility] the abdomen - [place] Stricture Active Finding 09/19/[address] [facility] intestinal - [place] Medications Medication Details Route Status Patient Ordering Order Source Instructions Provider Date Methotrexate Inj Active [facility] [place] Ciprofloxacin Hcl DAILY Active [facility] [place] Metronidazole DAILY Active [facility] [place] Acetaminophen SEE Active [facility] COMMENT 2017 [facility] [place] Diphenhydramine SEE Active [facility] COM[facility] [place] Azithromycin DAILY Active [facility] [place] Guaifenesin/Dextrome EVERY Active 01/03/ [facility] St[facility] thorphan TWELVE 2017 [facility] - HOURS [place] NEEDED Methylprednisolone DAILY Active 01/03/ [facility] [place] Prednisone DAILY Active [facility] 11/10/ [facility] [place] Prolia SEE Active [facility] COMMENT 2017 [facility] [place] Calcium DAILY Active St. Citrate/Vitamin D3 2017 [facility] [place] Ferrous Sulfate SEE Active 06/06/ [facility] COM[facility] [place] Cholecalciferol DAILY Active St. (Vitamin D3) 2017 [facility] [place] Lutein DAILY Active 10/07/ [facility] [place] Biotin DAILY Active 01/25/ [facility] [place] Folic Acid DAILY Active [facility] [place] Remicade SEE Active [facility] St[facility] COMMENT 2016 [facility] [place] Methotrexate Q7D Active [facility] Sodium/Pf [facility] [place] L. DAILY Active [facility] St[facility] Acidophilus/Bifido [facility] [place] Cyanocobalamin DAILY Active [facility] (Vitamin B-12) [facility] [place] Methotrexate EVERY 7 Active [facility] Sodium/Pf DAYS 2015 [facility] [place] Biotin DAILY Active [facility] [place] Calcium DAILY Active [facility] St[facility] Citrate/Vitamin D3 2015 [facility] [place] Cholecalciferol DAILY Active [facility] St[facility] (Vitamin D3) [facility] [place] Cyanocobalamin DAILY Active [facility] St[facility] (Vitamin B-12) [facility] [place] Folic Acid DAILY Active [facility] [place] Calcium DAILY Active [facility] St[facility] Carbonate/Vitamin D3 2013 [facility] [place] Mecobalamin DAILY Active [facility] [place] Omeprazole/Sodium DAILY Active [facility] St[facility] Bicarbonate 2013 [facility] [place] Allergies, Adverse Reactions, Alerts Substance Category Reaction Severity Reaction Status Date Comments Source type Reported adhesive Blisters/ Mild Allergy to Active [facility] St[facility] rash Substance [facility] [place] codeine Nausea/Vo Moderate Propensity Active [facility] St[facility] miting to adverse [facility] - reactions [place] Immunizations Immunization Date Given Site Status Last Updated Comments Source Results Order Results Value Reference Date Interpretation Comments Source Name Range Vital Signs Vital Sign Value Date Comments Source Temperature Oral (F) 98.2 F 09/19/2017 [facility] [place] Heart Rate 78 09/19/[address] [facility] [place] Respitory Rate 16 09/19/2017 [facility] [place] Systolic (mm Hg) 113 09/19/2017 [facility] Diastolic (mm Hg) 54 09/19/2017 [facility] Height 63 09/19/2017 [facility] Weight 130 09/19/2017 [facility] Encounters Location Location Encounter Encounter Reason Attending ADM DC Status Source Details Type Number For Provider Date Date Visit [facility] Departed [id number] 08/05 08/05 [facility] Referred [place] [facility] Registered [id number] 09/16 [facility] Referred [place] [facility] Departed [id number] 09/19 09/19 [facility] Procedures Procedure Code Date Perfomer Comments Source Chest Pa And Lat [id number] 09/16/2017 [facility] Vazquez (2 Views) [facility]
== END 2018-05-23 13:29 | disposition home or self-care (01) ==
LOC: ER 08:27
DX: K50.10 Crohn's disease of large intestine without complications (principal); Z88.5 Allergy status to narcotic agent
CPT/HCPCS: 36415; 74177; 80048; 80076; 83690; 85025; 87040 ×2; 96361; 96374; 96375; 99284; Q9967

== ENCOUNTER 2018-07-15 09:07 | Day surgery (SDC) | payer OTHER ==
--- OUTSIDE RECORDS SUMMARY | 2018-07-15 09:28 | XMS REPORT | Continuity of Care Document ---
:1945 Author Organization Interface Problems Problem Status Onset Classification Date Comments Source Date Reported Chest pain Active 06/07/19 Finding 09/19/[address] [facility] [place] Crohns disease Active 06/28/19 Finding 09/19/[address] [facility] [place] Anemia, iron Active 06/28/19 Finding 09/19/[address] [facility] deficiency [facility] - [place] Small bowel Active 06/28/19 Finding 09/19/[address] [facility] obstruction [facility] - [place] Abnormal CT of Active Finding 09/19/[address] [facility] - [place] Stricture Active Finding 09/19/[address] [facility] intestinal - [place] Medications Medication Details Route Status Patient Ordering Order Source Instructions Provider Date Methotrexate Inj Active [facility] - [place] Ciprofloxacin Hcl DAILY Active St[facility] [place] Metronidazole DAILY Active [facility] [place] Acetaminophen SEE Active [facility] St[facility] COMMENT 2017 [facility] - [place] Diphenhydramine SEE Active [facility] St[facility] COMMENT 2017 [facility] - [place] Azithromycin DAILY Active [facility] St[facility] 2017 [facility] - [place] Guaifenesin/Dextrome EVERY Active 01/03/ [facility] St. thorphan TWELVE 2017 [facility] - HOURS [place] NEEDED Methylprednisolone DAILY Active 01/03/ [facility] [place] Prednisone DAILY Active [facility] 11/10/ [facility] - [place] Prolia SEE Active [facility] St[facility] COMMENT 2017 [facility] - [place] Calcium DAILY Active St. Citrate/Vitamin D3 2017 [facility] - [place] Ferrous Sulfate SEE Active 06/06/ [facility] [place] Cholecalciferol DAILY Active St. (Vitamin D3) 2017 [facility] - [place] Lutein DAILY Active 10/07/ [facility] [place] Biotin DAILY Active 01/25/ [facility] [place] Folic Acid DAILY Active [facility] - [place] Remicade SEE Active [facility] St[facility] COMMENT 2016 [facility] - [place] Methotrexate Q7D Active [facility] St. Sodium/Pf 2015 [facility] - [place] L. DAILY Active [facility] St. Acidophilus/Bifido 2015 [facility] - [place] Cyanocobalamin DAILY Active [facility] (Vitamin B-12) [facility] [place] Methotrexate EVERY [address] [facility] St. Sodium/Pf DAYS 2015 [facility] - [place] Biotin DAILY Active [facility] St[facility] - [place] Calcium DAILY Active [facility] St. Citrate/Vitamin D3 2015 [facility] - [place] Cholecalciferol DAILY Active [facility] St. (Vitamin D3) 2015 [facility] - [place] Cyanocobalamin DAILY Active [facility] St. (Vitamin B-12) 2015 [facility] - [place] Folic Acid DAILY Active [facility] St[facility] 2015 [facility] - [place] Calcium DAILY Active [facility] St. Carbonate/Vitamin D3 2013 [facility] - [place] Mecobalamin DAILY Active [facility] St[facility] - [place] Omeprazole/Sodium DAILY Active [facility] St. Bicarbonate 2013 [facility] - [place] Allergies, Adverse Reactions, Alerts Substance Category Reaction Severity Reaction Status Date Comments Source type Reported adhesive Blisters/ Mild Allergy to Active [facility] St. rash Substance 8 [facility] - [place] codeine Nausea/Vo Moderate Propensity Active [facility] St. miting to adverse 8 [facility] - reactions [place] Immunizations Immunization Date Given Site Status Last Updated Comments Source Results Order Results Value Reference Date Interpretation Comments Source Name Range Vital Signs Vital Sign Value Date Comments Source Temperature Oral (F) 98.2 F 09/19/[address] [facility] [place] Heart Rate 78 09/19/[address] [facility] [place] Respitory Rate 16 09/19/[address] [facility] [place] Systolic (mm Hg) 113 09/19/2017 [facility] Diastolic (mm Hg) 54 09/19/2017 [facility] Height 63 09/19/2017 [facility] Weight 130 09/19/2017 [facility] Encounters Location Location Encounter Encounter Reason Attending ADM DC Status Source Details Type Number For Provider Date Date Visit [facility] St. Departed [id number] 08/05 08/[address] [facility]za[facility] Referred Milan Quigley [facility] St. Registered [id number] 09/16 [facility]donado[facility] Referred Milan Quigley [facility] St. Departed [id number] 09/19 09/19 [facility] Procedures Procedure Code Date Perfomer Comments Source Chest Pa And Lat [id number] 09/16/2017 [facility] Vazquez (2 Views) Dann
[2018-07-15 09:52] VITALS: BMI 24.6
[2018-07-15] MEDS ORDERED: NA CHLORIDE 0.9% IV ONE (10:00)
[2018-07-15] MEDS ORDERED: INFLIXIMAB DYYB IV ONE (10:00)
[2018-07-15 11:30] VITALS: TEMP 97.1; O2SAT 98
[2018-07-15 12:47] VITALS: BP 110/50
== END 2018-07-15 12:00 | disposition home or self-care (01) ==
LOC: DS 09:07
PROVIDERS: ATTEND Internal Medicine Gastroenterology
DX: K50.90 Crohn's disease, unspecified, without complications (principal)
CPT/HCPCS: 96365; 96366; Q5103

== ENCOUNTER → 2018-08-25 | Day surgery (SDC) | payer OTHER ==
[~2018-08-25] MED LIST: INFLIXIMAB DYYB IV ONE; NA CHLORIDE 0.9% 250 ML ONE; NA CHLORIDE 0.9% IV ONE
--- OUTSIDE RECORDS SUMMARY | 2018-08-25 09:14 | XMS REPORT | Continuity of Care Document ---
:1945 Author Organization Interface Problems Problem Status Onset Classification Date Comments Source Date Reported Chest pain Active 06/07/19 Finding 09/19/[address] [facility] [place] Crohns disease Active 06/28/19 Finding 09/19/[address] [facility] [place] Anemia, iron Active 06/28/19 Finding 09/19/[address] [facility] deficiency 15 - [place] Small bowel Active 06/28/19 Finding 09/19/[address] [facility] obstruction 15 - [place] Abnormal CT of Active Finding 09/19/[address] [facility] the abdomen - [place] Stricture Active Finding 09/19/[address] [facility] intestinal - [place] Medications Medication Details Route Status Patient Ordering Order Source Instructions Provider Date Methotrexate Inj Active [facility] - [place] Ciprofloxacin Hcl DAILY Active [facility] - [place] Metronidazole DAILY Active [facility] [place] Acetaminophen SEE Active [facility] COM[facility] - [place] Diphenhydramine SEE Active [facility] St[facility] COMMENT 2017 [facility] - [place] Azithromycin DAILY Active 01/03/ [facility] - [place] Guaifenesin/Dextrome EVERY Active 01/03/ [facility] St. thorphan TWELVE 2017 [facility] - HOURS [place] NEEDED Methylprednisolone DAILY Active 01/03/ [facility] [place] Prednisone DAILY Active [facility] 11/10/ [facility] - [place] Prolia SEE Active St. COMMENT 2017 [facility] - [place] Calcium DAILY Active St. Citrate/Vitamin D3 2017 [facility] - [place] Ferrous Sulfate SEE Active 06/06/ [facility] COM[facility] [place] Cholecalciferol DAILY Active St. (Vitamin D3) 2017 [facility] - [place] Lutein DAILY Active 10/07/ [facility] [place] Biotin DAILY Active 01/25/ [facility] [place] Folic Acid DAILY Active [facility] - [place] Remicade SEE Active [facility] St[facility] COMMENT 2016 [facility] - [place] Methotrexate Q7D Active [facility] St. Sodium/Pf 2015 [facility] - [place] L. DAILY Active [facility] St. Acidophilus/Bifido 2015 [facility] - [place] Cyanocobalamin DAILY Active [facility] (Vitamin B-12) [facility] [place] Methotrexate EVERY [address] [facility] [address] Sodium/Pf DAYS 2015 [facility] - [place] Biotin DAILY Active [facility] St[facility] 2015 [facility] - [place] Calcium DAILY Active [facility] St. Citrate/Vitamin D3 2015 [facility] - [place] Cholecalciferol DAILY Active [facility] St. (Vitamin D3) 2015 [facility] - [place] Cyanocobalamin DAILY Active [facility] St. (Vitamin B-12) 2015 [facility] - [place] Folic Acid DAILY Active [facility] St[facility] - [place] Calcium DAILY Active [facility] St. Carbonate/Vitamin D3 2013 [facility] - [place] Mecobalamin DAILY Active [facility] - [place] Omeprazole/Sodium DAILY Active [facility] St. Bicarbonate 2013 [facility] - [place] Allergies, Adverse Reactions, Alerts Substance Category Reaction Severity Reaction Status Date Comments Source type Reported adhesive Blisters/ Mild Allergy to Active [facility] St. rash Substance 8 [facility] - [place] codeine Nausea/Vo Moderate Propensity Active [facility] St. miting to adverse 8 [facility] - reactions [place] Immunizations Immunization Date Given Site Status Last Updated Comments Source Results Order Results Value Reference Date Interpretation Comments Source Name Range Vital Signs Vital Sign Value Date Comments Source Temperature Oral (F) 98.2 F 09/19/[address] [facility] [place] Heart Rate 78 09/19/[address] [facility] [place] Respitory Rate 16 09/19/[address] [facility] [place] Systolic (mm Hg) 113 09/19/2017 [facility] Diastolic (mm Hg) 54 09/19/2017 [facility] Height 63 09/19/2017 [facility] Weight 130 09/19/2017 [facility] Encounters Location Location Encounter Encounter Reason Attending ADM DC Status Source Details Type Number For Provider Date Date Visit [facility] St. Departed [id number] 08/05 08/05 [facility] Referred Milan Quigley [facility] St. Registered [id number] 09/16 [facility]donado[facility] Referred Milan Quigley [facility] St. Departed [id number] 09/19 09/19 [facility] Procedures Procedure Code Date Perfomer Comments Source Chest Pa And Lat [id number] 09/16/2017 [facility] Vazquez (2 Views) Dann
[2018-08-25 11:22] VITALS: BP 103/49; TEMP 98.4; O2SAT 98
== END ==
LOC: DS 09:02
PROVIDERS: ATTEND Internal Medicine Gastroenterology
DX: K50.90 Crohn's disease, unspecified, without complications (principal)
CPT/HCPCS: 96365; 96366; Q5103

== ENCOUNTER 2018-10-02 08:52 | Day surgery (SDC) | payer OTHER ==
--- OUTSIDE RECORDS SUMMARY | 2018-10-02 08:56 | XMS REPORT | Continuity of Care Document ---
:1945 Author Organization Interface Problems Problem Status Onset Classification Date Comments Source Date Reported Chest pain Active 06/07/19 Finding 09/19/[address] [facility] [place] Crohns disease Active 06/28/19 Finding 09/19/[address] [facility] [place] Anemia, iron Active 06/28/19 Finding 09/19/[address] [facility] [address] [facility] deficiency 15 - [place] Small bowel Active 06/28/19 Finding 09/19/[address] [facility] [address] [facility] obstruction 15 - [place] Abnormal CT of Active Finding 09/19/[address] [facility] [address] [facility] the abdomen - [place] Stricture Active Finding 09/19/[address] [facility] [address] [facility] intestinal - [place] Medications Medication Details Route Status Patient Ordering Order Source Instructions Provider Date Methotrexate Inj Active [facility] - [place] Ciprofloxacin Hcl DAILY Active [facility] [place] Metronidazole DAILY Active [facility] [place] Acetaminophen SEE Active [facility] [place] Diphenhydramine SEE Active [facility] St[facility] COMMENT 2017 [facility] - [place] Azithromycin DAILY Active 01/03/ [facility] 2017 [facility] - [place] Guaifenesin/Dextrome EVERY Active 01/03/ [facility] St. thorphan TWELVE 2017 [facility] - HOURS [place] NEEDED Methylprednisolone DAILY Active 01/03/ [facility] [place] Prednisone DAILY Active [facility] 11/10/ [facility] 2017 [facility] - [place] [...] [facility] - [place] Folic Acid DAILY Active [facility] [place] Remicade SEE Active [facility] St[facility] COMMENT 2016 [facility] - [place] Methotrexate Q7D Active [facility] St. Sodium/Pf 2015 [facility] - [place] L. DAILY Active [facility] St. Acidophilus/Bifido 2015 [facility] - [place] Cyanocobalamin DAILY Active [facility] (Vitamin B-12) [facility] [place] Methotrexate EVERY 7 Active [facility] [address] Sodium/Pf DAYS 2015 [facility] - [place] Biotin DAILY Active [facility] St[facility] - [place] Calcium DAILY Active [facility] St. Citrate/Vitamin D3 2015 [facility] - [place] Cholecalciferol DAILY Active [facility] St. (Vitamin D3) 2015 [facility] - [place] Cyanocobalamin DAILY Active [facility] St. (Vitamin B-12) 2015 [facility] - [place] Folic Acid DAILY Active [facility] St[facility] 2015 [facility] - [place] Calcium DAILY Active [facility] St. Carbonate/Vitamin D3 2013 [facility] - [place] Mecobalamin DAILY Active [facility] St[facility] - [place] Omeprazole/Sodium DAILY Active [facility] St. Bicarbonate 2013 [facility] - [place] Allergies, Adverse Reactions, Alerts Substance Category Reaction Severity Reaction Status Date Comments Source type Reported adhesive Blisters/ Mild Allergy to Active [facility] St. rash Substance 8 [facility] - [place] codeine Nausea/Vo Moderate Propensity Active [facility] St. miting to adverse 8 [facility] - reactions [place] Immunizations Immunization Date Given Site Status Last Updated Comments Source Results Order Results Value Reference Date Interpretation Comments Source Name Range Vital Signs Vital Sign Value Date Comments Source Temperature Oral (F) 98.2 F 09/19/[address] [facility] [address] [place] Heart Rate 78 09/19/[address] [facility] [address] [facility] [place] Respitory Rate 16 09/19/[address] [facility] [address] [place] Systolic (mm Hg) 113 09/19/2017 [facility] Diastolic (mm Hg) 54 09/19/2017 [facility] Height 63 09/19/2017 [facility] Weight 130 09/19/2017 [facility] Encounters Location Location Encounter Encounter Reason Attending ADM DC Status Source Details Type Number For Provider Date Date Visit [facility] St. Departed [id number] 08/05 08/05 [facility] Referred Milan Quigley [facility] St. Registered [id number] 09/16 [facility]ado[facility] Referred Milan Quigley [facility] St. Departed [id number] 09/19 09/19 [facility] Procedures Procedure Code Date Perfomer Comments Source Chest Pa And Lat [id number] 09/16/2017 [facility] Vazquez (2 Views) Dann
[2018-10-02] MEDS ORDERED: INFLIXIMAB DYYB IV ONE (09:15)
[2018-10-02] MEDS ORDERED: NA CHLORIDE 0.9% IV ONE (09:15)
[2018-10-02 11:02] VITALS: BMI 21.8
[2018-10-02 12:07] VITALS: O2SAT 98
[2018-10-02 12:09] VITALS: BP 111/57; TEMP 97.5
== END 2018-10-02 12:10 | disposition home or self-care (01) ==
LOC: DS 08:52
PROVIDERS: ATTEND Internal Medicine Gastroenterology
DX: K50.90 Crohn's disease, unspecified, without complications (principal)
CPT/HCPCS: 96365; 96366; Q5103

== ENCOUNTER 2018-11-25 09:05 | Day surgery (SDC) | payer OTHER ==
--- OUTSIDE RECORDS SUMMARY | 2018-11-25 09:09 | XMS REPORT | Continuity of Care Document ---
:1945 Author Organization Interface Problems Problem Status Onset Classification Date Comments Source Date Reported Chest pain Active 06/07/19 Finding 09/19/[address] [facility] [place] Crohns disease Active 06/28/19 Finding 09/19/[address] [facility] [place] Anemia, iron Active 06/28/19 Finding 09/19/[address] [facility] deficiency 15 - [place] Small bowel Active 06/28/19 Finding 09/19/[address] [facility] obstruction [facility] - [place] Abnormal CT of Active Finding 09/19/[address] [facility] - [place] Stricture Active Finding 09/19/[address] [facility] intestinal - [place] Medications Medication Details Route Status Patient Ordering Order Source Instructions Provider Date Methotrexate Inj Active [facility] [place] Ciprofloxacin Hcl DAILY Active [facility] [place] Metronidazole DAILY Active [facility] [place] Acetaminophen SEE Active [facility] [place] Diphenhydramine SEE Active [facility] COM[facility] 2017 [facility] - [place] Azithromycin DAILY Active 01/03/ [facility] - [place] Guaifenesin/Dextrome EVERY Active 01/03/ [facility] St. thorphan TWELVE 2017 [facility] - HOURS [place] NEEDED Methylprednisolone DAILY Active 01/03/ [facility] [place] Prednisone DAILY Active [facility] 11/10/ [facility] - [place] Prolia SEE [...] Acid DAILY Active [facility] - [place] Remicade SEE Active [facility] St[facility] COMMENT 2016 [facility] - [place] Meth[facility]rexate Q7D Active [facility] St. Sodium/Pf 2015 [facility] - [place] L. DAILY Active [facility] St. Acidophilus/Bifido 2015 [facility] - [place] Cyanocobalamin DAILY Active [facility] (Vitamin B-12) [facility] [place] Methotrexate EVERY [address] [facility] Sodium/Pf DAYS [facility] - [place] Biotin DAILY Active [facility] - [place] Calcium DAILY Active [facility] St. Citrate/Vitamin D3 2015 [facility] - [place] Cholecalciferol DAILY Active [facility] St. (Vitamin D3) 2015 [facility] - [place] Cyanocobalamin DAILY Active [facility] St. (Vitamin B-12) 2015 [facility] - [place] Folic Acid DAILY Active [facility] - [place] Calcium DAILY Active [facility] St. Carbonate/Vitamin D3 2013 [facility] - [place] Mecobalamin DAILY Active [facility] - [place] Omeprazole/Sodium DAILY Active [facility] St. Bicarbonate 2013 [facility] - [place] Allergies, Adverse Reactions, Alerts Substance Category Reaction Severity Reaction Status Date Comments Source type Reported adhesive Blisters/ Mild Allergy to Active [facility] St[facility] rash Substance 8 [facility] - [place] codeine Nausea/Vo Moderate Propensity Active [facility] St. miting to adverse 8 [facility] - reactions [place] Immunizations Immunization Date Given Site Status Last Updated Comments Source Results Order Results Value Reference Date Interpretation Comments Source Name Range Vital Signs Vital Sign Value Date Comments Source Temperature Oral (F) 98.2 F 09/19/[address] [facility] [place] Heart Rate 78 09/19/[address] [facility] [place] Respitory Rate 16 09/19/[address] [facility] [place] Systolic (mm Hg) 113 09/19/2017 [facility] Diastolic (mm Hg) 54 09/19/2017 [facility] Height 63 09/19/2017 [facility] Weight 130 09/19/2017 [facility] Encounters Location Location Encounter Encounter Reason Attending ADM DC Status Source Details Type Number For Provider Date Date Visit [facility] St. Departed [id number] 08/05 08/[address] [facility] Referred Milan Quigley [facility] St. Registered [id number] 09/16 [facility] Maldonado[facility] Referred Milan Quigley [facility] St. Departed [id number] 09/19 09/19 [facility] Procedures Procedure Code Date Perfomer Comments Source Chest Pa And Lat [id number] 09/16/2017 [facility] Vazquez (2 Views) Dann
[2018-11-25] MEDS ORDERED: NA CHLORIDE 0.9% IV ONE (09:45)
[2018-11-25] MEDS ORDERED: INFLIXIMAB DYYB IV ONE (09:45)
[2018-11-25] MEDS ORDERED: NA CHLORIDE 0.9% 250 ML ONE (10:07)
[2018-11-25 12:46] VITALS: BMI 23.0
[2018-11-25 12:50] VITALS: BP 123/64; TEMP 98.4; O2SAT 96
== END 2018-11-25 12:42 | disposition home or self-care (01) ==
LOC: DS 09:05
PROVIDERS: ATTEND Internal Medicine Gastroenterology
DX: K50.90 Crohn's disease, unspecified, without complications (principal)
CPT/HCPCS: 96365; 96366; Q5103

== ENCOUNTER 2019-01-07 08:49 | Day surgery (SDC) | payer OTHER ==
--- OUTSIDE RECORDS SUMMARY | 2019-01-07 08:52 | XMS REPORT | Continuity of Care Document ---
:1945 Author Organization [employer] Care Team Providers Name Role Phone [employer] Unavailable Unavailable Problems Problem Status Onset Classification Date Comments Source Date Reported Chest pain Active 06/07/19 Finding 11/25/[address] [facility] [place] Crohns disease Active 06/28/19 Finding 11/25/[address] [facility] [place] Anemia, iron Active 06/28/19 Finding 11/25/[address] [facility] deficiency 15 - [place] Small bowel Active 06/28/19 Finding 11/25/[address] [facility] obstruction [facility] - [place] Abnormal CT of Active Finding 11/25/[address] [facility] the abdomen - [place] Stricture Active Finding 11/25/[address] [facility] intestinal - [place] Medications Medication Details Route Status Patient Ordering Order Source Instructions Provider Date Acetaminophen NEEDED ORAL Active St. PRN For 2019 [facility] - Pain Scale [place] 2-4 (Mild) Diphenhydramine NEEDED ORAL Active St. PRN For 2019 [facility] - Allergies [place] Methotrexate Inj SEE SUB-Q Active 09/19/ St[facility] COMMENT 2018 [facility] - [place] Ciprofloxacin Hcl DAILY Active St. 2017 [facility] [place] Metronidazole DAILY ORAL Active St. 2017 [facility] [place] Ciprofloxacin Hcl DAILY ORAL Active St. 2017 [facility] [place] Acetaminophen SEE Active 02/14/ St[facility] COMMENT 2017 [facility] - [place] Diphenhydramine SEE Active St[facility] COMMENT 2017 [facility] - [place] Azithromycin DAILY ORAL Active St. 2017 [facility] [place] Guaifenesin/Dextrom EVERY ORAL Active St. ethorphan TWELVE 2016 [facility] - HOURS [place] NEEDED Methylprednisolone DAILY ORAL Active St[facility] 2017 [facility] - [place] Prednisone DAILY ORAL Active Divinsky 11/10/ [facility] [place] Prolia SEE INTRAMUSC Active St. COMMENT 2017 [facility] - [place] Calcium DAILY ORAL Active St. Citrate/Vitamin D3 2017 [facility] [place] Ferrous Sulfate SEE ORAL Active St[facility] COMMENT 2017 [facility] - [place] Cholecalciferol DAILY ORAL Active St. (Vitamin D3) 2017 [facility] [place] Lutein DAILY ORAL Active [facility] 2016 [facility] [place] Biotin DAILY ORAL Active [facility] 2016 [facility] [place] Folic Acid DAILY ORAL Active 08/10/ [facility] [place] Remicade SEE INTRAVEN Active St. COMMENT 2016 [facility] - [place] Methotrexate Q7D Active [facility] Sodium/Pf 2015 [facility] [place] Methotrexate Q7D INJECTION Active [facility] Sodium/Pf 2014 [facility] [place] L. DAILY ORAL Active St[facility] Acidophilus/Bifido 2015 [facility] - Longum [place] Cyanocobalamin DAILY ORAL Active [facility] (Vitamin B-12) 2015 [facility] [place] Methotrexate EVERY [address] Sodium/Pf DAYS 2015 [facility] [place] Biotin DAILY ORAL Active [facility] [place] Calcium DAILY ORAL Active St. Citrate/Vitamin D3 2015 [facility] [place] Cholecalciferol DAILY ORAL Active St. (Vitamin D3) 2015 [facility] [place] Cyanocobalamin DAILY ORAL Active St. (Vitamin B-12) 2015 [facility] - [place] Folic Acid DAILY ORAL Active [facility] 2015 [facility] [place] Methotrexate EVERY [address] Sodium/Pf DAYS 2015 [facility] - [place] Calcium DAILY ORAL Active St[facility] Carbonate/Vitamin 2013 [facility] - D3 [place] Mecobalamin DAILY ORAL Active [facility] 2013 [facility] [place] Omeprazole/Sodium DAILY ORAL Active St[facility] Bicarbonate 2013 [facility] - [place] Allergies, Adverse Reactions, Alerts Substance Category Reaction Severity Reaction Status Date Comments Source type Reported adhesive Blisters/ Mild Allergy to Active [facility] rash Substance 9 [facility] - [place] codeine Nausea/Vo Moderate Propensity Active [facility] miting to adverse 9 [facility] - reactions [place] Immunizations No Data Provided for This Section Results No Data Provided for This Section Pathology Reports No Data Provided for This Section Diagnostic Reports No Data Provided for This Section Consultation Notes No Data Provided for This Section Discharge Summaries No Data Provided for This Section History and Physicals No Data Provided for This Section Vital Signs Vital Sign Value Date Comments Source Temperature Oral (F) 98.4 F 11/25/[address] [facility] [place] Heart Rate 62 11/25/[address] [facility] [place] Respitory Rate 16 11/25/[address] [facility] [place] Systolic (mm Hg) 123 11/25/[address] [facility] [place] Diastolic (mm Hg) 64 11/25/[address] [facility] [place] Height 63 11/25/[address] [facility] [place] Weight 130 11/25/[address] [facility] [place] Temperature Oral (F) 98.2 F 09/19/[address] [facility] [place] Heart Rate 78 09/19/[address] [facility] [place] Respitory Rate 16 09/19/[address] [facility] [place] Systolic (mm Hg) 113 09/19/[address] [facility] [place] Diastolic (mm Hg) 54 09/19/[address] [facility] [place] Height 63 09/19/[address] [facility] [place] Weight 130 09/19/[address] [facility] [place] Encounters Location Location Encounter Encounter Reason Attending ADM DC Status Source Details Type Number For Provider Date Date Visit [facility] Departed [id number] 08/05 08/[address] [facility] [place] [facility] Registered [id number] 09/[address] [facility] [place] [facility] St[facility] Departed [id number] 09/19 09/[address] [facility] 71 /2017 [facility] [place] [facility] [place] [facility] St[facility] Departed [id number] 10/02 10/[address] [facility] 92 /2018 [facility] [place] [facility] [place] [facility] St[facility] Departed [id number] 11/25 11/[address] [facility] 45 /2018 [facility] [place] [facility] [place] Procedures Procedure Code Date Perfomer Comments Source Chest Pa And Lat [id number] 09/16/2017 ESMER Richards - (2 Views) Dann Assessment and Plan No Data Provided for This Section Plan of Care Plan of Care Date Source No known plan of care. 11/25/[address] [facility] [place] No known plan of care. 11/25/2018 [facility] Richards - Dann No known plan of care. 09/19/2017 E[facility] Richards - Dann No known plan of care. 09/19/2017 [facility] Richards Dann Social History Social History Date Source Query Response Date Recorded Comment 11/25/2018 ESM[facility] Arroyo Alcohol Use? No November 20, 2017 7:25am CD- Drugs? No November 20, 2017 7:25am Family History Value Date Source Query Response Instance Date Recorded Comment 11/25/2018 ESMER Arroyo Medical History Heart disease Cancer Father November 20, 2017 7:25am Medical History Heart disease Cancer November 06, 2016 1:55pm Query Response Instance Date Recorded Comment 09/19/2017 ESMER Arroyo Medical History Heart disease Cancer Father November 06, 2016 1:55pm Medical History Heart disease Cancer November 06, 2016 1:55pm Advance Directives Order Name Results Value Date Source Advance Directives Advance Directives Advance Directive Response Recorded Date/Time 11/25/2018 ESMER Richards - Does Patient Have Living Will [place] Yes November 20, 2017 5:51pm Durable Power of Automotive Engineer for Health Care Yes November 20, 2017 7:25am Advance Directives Advance Directives Advance Directive Response Recorded Date/Time 09/19/2017 ESMER Richards - Does Patient Have Living Will [place] No November 09, 2016 6:00pm Durable Power of Automotive Engineer for Health Care Yes November 05, 2016 11:20am Functional Status No Data Provided for This Section
[2019-01-07] MEDS ORDERED: INFLIXIMAB DYYB IV ONE (09:15)
[2019-01-07] MEDS ORDERED: NA CHLORIDE 0.9% IV ONE (09:15)
[2019-01-07] MEDS ORDERED: NA CHLORIDE 0.9% 250 ML ONE (09:27)
[2019-01-07 09:39] VITALS: BMI 22.4
[2019-01-07 12:31] VITALS: BP 128/67; TEMP 97.8; O2SAT 97
== END 2019-01-07 12:04 | disposition home or self-care (01) ==
LOC: DS 08:49
PROVIDERS: ATTEND Internal Medicine Gastroenterology
DX: K50.90 Crohn's disease, unspecified, without complications (principal)
CPT/HCPCS: 96365; 96366; Q5103

== ENCOUNTER 2019-02-17 08:56 | Day surgery (SDC) | payer OTHER ==
--- OUTSIDE RECORDS SUMMARY | 2019-02-17 09:03 | XMS REPORT | Continuity of Care Document ---
:1945 Author Organization [employer] Care Team Providers Name Role Phone [employer] Unavailable Unavailable Problems Problem Status Onset Classification Date Comments Source Date Reported Crohn's disease of 01/26/2019 [facility] small intestine 019 without complications Chest pain Active Finding 11/25/[address] 017 [facility] [place] Crohns disease Active Finding 11/25/[address] 015 [facility] [place] Anemia, iron Active Finding 11/25/[address] deficiency 015 [facility] [place] Small bowel Active Finding 11/25/[address] 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 abdomen [facility] [place] Stricture Active Finding 11/25/[address] intestinal [facility] [place] Abdominal pain Active Problem 01/26/2019 [facility] (finding) Acid reflux Active Problem 01/26/2019 [facility] (finding) Anemia (disorder) Active Problem 01/26/2019 [facility] Anxiety (finding) Active Problem 01/26/2019 [facility] Swollen abdomen Active Problem 01/26/2019 [facility] (finding) Gastroesophageal Active Problem 01/26/2019 [facility] reflux disease (disorder) Osteoporosis Active Problem 01/26/2019 [facility] (disorder) Rectal pain Active Problem 01/26/2019 [facility] (finding) Medications Medication Details Route Status Patient Ordering Order Source Instructions Provider Date Misc Medication 300 mL, Inactive [facility] Soln-IV, IV, 2019 Once, first dose 01/24/19 8:05:00 CDT, stop date 01/24/19 8:05:00 CDT propofol 20 mg=2 mL, Inactive [facility] Emulsion, 2019 IV, Once, first dose 01/24/19 7:46:00 CDT, stop date 01/24/19 7:46:00 CDT ketamine 25 mg=0.5 Inactive [facility] mL, Soln-IV, 2019 IV, Once, first dose 01/24/19 7:38:00 CDT, stop date 01/24/19 7:38:00 CDT midazolam 0.5 mg=0.5 Inactive [facility] mL, 2019 Injection, IV, Once, first dose 01/24/19 7:34:00 CDT, stop date 01/24/19 7:34:00 CDT fentaNYL 25 mcg=0.5 Inactive [facility] mL, 2019 Injection, IV, Once, first dose 01/24/19 7:34:00 CDT, stop date 01/24/19 7:34:00 CDT midazolam 0.5 mg=0.5 Inactive [facility] mL, 2019 Injection, IV, Once, first dose 01/24/19 7:28:00 CDT, stop date 01/24/19 7:28:00 CDT fentaNYL 25 mcg=0.5 Inactive [facility] mL, 2019 Injection, IV, Once, first dose 01/24/19 7:28:00 CDT, stop date 01/24/19 7:28:00 CDT Lidocaine 2% 0.2 mL, Inactive [facility] 0.2 mL IV Start [facility], [facility] Sub[facility] , Once PRN for other (see comment), first dose 01/24/19 6:57:00 CDT LR 1,000 mL 1,000 mL, Inactive [facility] IV, 30 2019 mL/hr, start date 01/24/19 6:57:00 CDT Calcium 1,200 mg=2 Active I Carbonate 1500 tabs, Oral, 2019 MG Oral Tablet Daily, supplement D3-5 oral 5,000 Active capsule IntUnit=1 2019 caps, Oral, Daily, supplement biotin 300 mcg 300 mcg=1 Active [facility] oral tablet tabs, Oral, 2019 Daily, supplement Vitamin B12 See Active [facility] Methylcobalamin Instructions 2019 2000 mcg oral , supplement capsule Folic Acid 1 mg, Oral, Active 01/22/ [facility] Daily, 2019 supplement 1 ML denosumab 60 mg, Active [facility] 60 MG/ML Subcutaneous 2019 Prefilled , q6mo, Syringe osteoporosis [Prolia] methotrexate 1 1,000 mg/m2, Active 01/22/ [facility] g injection IV, 2019 qWednesday, crohn's infliximab 10 5 mg/kg, IV, Active 01/22/ [facility] MG/ML q6wk, 2019 Injectable crohn's Solution disease [Remicade] Acetaminophen NEEDED ORAL Active [facility] PRN For Pain 2019 [facility] - Scale 2-4 [place] (Mild) Diphenhydramine NEEDED ORAL Active [facility] PRN For 2019 [facility] - Allergies [place] Methotrexate SEE COMMENT SUB-Q Active St[facility] Inj 2018 [facility] - [place] Ciprofloxacin DAILY Active [facility] Hcl 2017 [facility] [place] Metronidazole DAILY ORAL Active [facility] 2017 [facility] [place] Ciprofloxacin DAILY ORAL Active 05/09/ [facility]cl 2017 [facility] [place] Acetaminophen SEE COMMENT Active [facility] 2017 [facility] [place] Diphenhydramine SEE COMMENT Active 02/14/ [facility] 2017 [facility] [place] Azithromycin DAILY ORAL Active [facility] 2017 [facility] [place] Guaifenesin/Dex EVERY TWELVE ORAL Active St[facility] tromethorphan HOURS 2017 [facility] - NEEDED [place] Methylprednisol DAILY ORAL Active [facility] one 2017 [facility] - [place] Prednisone DAILY ORAL Active [facility] 11/10/ [facility] 2017 [facility] [place] Prolia SEE COMMENT INTRAMUSC Active [facility] 2017 [facility] [place] Calcium DAILY ORAL Active St. Citrate/Vitamin 2017 [facility] - D3 [place] Ferrous Sulfate SEE COMMENT ORAL Active [facility] 2017 [facility] - [place] Cholecalciferol DAILY ORAL Active St. (Vitamin D3) 2017 [facility] - [place] Lutein DAILY ORAL Active [facility] 2016 [facility] - [place] Biotin DAILY ORAL Active [facility] 2016 [facility] [place] Folic Acid DAILY ORAL Active [facility] 2016 [facility] [place] Remicade SEE COMMENT INTRAVEN Active St[facility] 2016 [facility] - [place] Methotrexate Q7D Active [facility] Sodium/Pf 2015 [facility] - [place] Methotrexate Q7D INJECTION Active St[facility] Sodium/Pf 2015 [facility] - [place] L. DAILY ORAL Active St. Acidophilus/Bif 2015 [facility] - [facility] Longum [place] Cyanocobalamin DAILY ORAL Active [facility] (Vitamin B-12) 2015 [facility] [place] Methotrexate EVERY [address] Sodium/Pf 2015 [facility] - [place] Biotin DAILY ORAL Active St. 2015 [facility] - [place] Calcium DAILY ORAL Active St. Citrate/Vitamin 2015 [facility] - D3 [place] Cholecalciferol DAILY ORAL Active St. (Vitamin D3) 2014 [facility] - [place] Cyanocobalamin DAILY ORAL Active St. (Vitamin B-12) 2015 [facility] - [place] Folic Acid DAILY ORAL Active St. 2015 [facility] - [place] Methotrexate EVERY [address] Sodium/Pf 2015 [facility] - [place] Calcium DAILY ORAL Active St[facility] Carbonate/Vitam 2012 [facility] - in D3 [place] Mecobalamin DAILY ORAL Active St[facility] 2013 [facility] - [place] Omeprazole/Sodi DAILY ORAL Active St. um Bicarbonate 2013 [facility] - [place] Allergies, Adverse Reactions, Alerts Substance Category Reaction Severity Reaction Status Date Comments Source type Reported adhesive Blisters/ Mild Allergy to Active [facility] rash Substance 9 [facility] [place] codeine Assertion severe GI Drug Active [facility] upset allergy Adhesive Assertion rash, Drug Active [facility] Bandage skin allergy tears Immunizations No Data Provided for This Section Results No Data Provided for This Section Pathology Reports No Data Provided for This Section Diagnostic Reports No Data Provided for This Section Consultation Notes No Data Provided for This Section Discharge Summaries No Data Provided for This Section History and Physicals No Data Provided for This Section Vital Signs Vital Sign Value Date Comments Source Heart Rate 60 01/24/2019 [facility] Systolic (mm Hg) 140 01/24/2019 [facility] Diastolic (mm Hg) 72 01/24/2019 [facility] Respitory Rate 15 01/24/2019 [facility] Respitory Rate 15 01/24/2019 [facility] Heart Rate 59 01/24/2019 [facility] Systolic (mm Hg) 139 01/24/2019 [facility] Diastolic (mm Hg) 73 01/24/2019 [facility] Respitory Rate 17 01/24/2019 [facility] Heart Rate 71 01/24/2019 [facility] Systolic (mm Hg) 122 01/24/2019 [facility] Diastolic (mm Hg) 58 01/24/2019 [facility] Temperature Oral (F) 36.4 Jazmin 01/24/2019 [facility] Height 160.02 cm 01/24/2019 [facility] Peripheral Pulse Rate 62 01/24/2019 [facility] Temperature Oral (F) 36.6 Jazmin 01/24/2019 [facility] Weight Measured 56.77 01/24/2019 [facility] Weight Measured 56.70 01/21/2019 [facility] Height 160.02 cm 01/21/2019 [facility] Temperature Oral (F) 98.4 F 11/25/2018 [facility] [...] [place] Diastolic (mm Hg) 54 09/19/[address] [facility] [place] Height 63 09/19/[address] [facility] [place] Weight 130 09/19/2017 ESMER Arroyo Encounters Location Location Encounter Encounter Reason Attending ADM DC Status Source Details Type Number For Provider Date Date Visit ESMER Aguilar Departed [id number] 08/05 08/05 E[facility] [place] Referred [place] - Dann Newsome. Registered [id number] 09/16 [facility] Maldonado[facility] Referred 86 [place] - [facility] Quig[facility] [id number] 09/19 09/19 [facility] [place] - [facility] Dann Aguilar Departed [id number] 10/02 10/[address] [facility] [place] - D[facility] Dann Aguilar Departed [id number] 11/25 11/25 [facility] [place] - [facility] Adyt [facility] Outpatient [id number] [facility] 01/24 01/24 Active Surgical /[facility] [id number] [facility] [place] [place] [facility] Procedures Procedure Code Date Perfomer Comments Source COLONOSCOPY 01/24/2019 auto-populated [facility] FLEXIBLE; from documented DIAGNOSTIC; INCL. surgical case COLLECTION OF SPECIMENS 20015 (N/A)<sup>1</sup> Chest Pa And Lat [id number] 09/16/2017 ESMER Richadrs Vielka (2 Views) Dann Colonoscopy [id number] 06/03/2016 [facility] Anorectal abscess [id number] 06/03/2013 [facility] Colon<sup>2</sup> [id number] 06/03/2001 colon resection [facility] Colon<sup>3</sup> [id number] 06/03/1970 colon resection [facility] Appendectomy<sup> [id number] open procedure [facility] 4</sup> Umbilical hernia [id number] [facility] Assessment and Plan No Data Provided for This Section Plan of Care Plan of Care Date Source No known plan of care. 11/25/2018 ESMER Arroyo No known plan of care. 11/25/2018 ESMER Arroyo No known plan of care. 09/19/2017 ESMER Arroyo No known plan of care. 09/19/2017 ESMER Arroyo Social History Social History Date Source Social History TypeResponse 01/24/2019 [facility] Query Response Date Recorded Comment 11/25/2018 ESMER [...] Advance Directive Response Recorded Date/Time 11/25/2018 ESMER Ro Patient Have Living Will Dann Yes November 20, 2017 5:51pm Durable Power of Sales Planning Analyst for Health Care Yes November 20, 2017 7:25am Advance Directives Advance Directives Advance Directive Response Recorded Date/Time 09/19/2017 ESMER Ro Patient Have Living Will Dann No November 09, 2016 6:00pm Durable Power of Sales Planning Analyst for Health Care Yes November 05, 2016 11:20am Functional Status No Data Provided for This Section
--- OUTSIDE RECORDS SUMMARY | 2019-02-17 09:04 | XMS REPORT | Summary of Care ---
:1945 Author Organization [facility] Address [address] [place] [address] Encounter [facility] [id number] Date(s): 01/24/19 - 01/24/19 [facility] [address] [place] [address]- Encounter Diagnosis Crohn's disease of small intestine without complications (Discharge Diagnosis) - 01/24/19 Discharge Disposition: Discharged to Home or Self Care Attending Physician: Sneha Bonilla MD Admitting Physician: Sneha Bonilla MD Vital Signs Most recent to oldest 1 2 3 [Reference Range]: Temperature Oral [35.8-37.3 36.6 DegC DegC] (01/24/19 7:02 AM) Temperature Tympanic 36.4 DegC [36.6-38.1 DegC] *LOW* (01/24/19 8:00 AM) Temperature Tympanic 97.52 Fahrenheit (01/24/19 8:00 AM) Peripheral Pulse Rate [55-105 62 bpm bpm] (01/24/19 7:02 AM) Heart Rate Monitored [60-100 60 bpm 59 bpm 71 bpm bpm] (01/24/19 9:00 AM) *LOW* (01/24/19 8:10 AM) (01/24/19 8:20 AM) Respiratory Rate [12-20] 15 15 17 (01/24/19 9:00 AM) (01/24/19 8:20 AM) (01/24/19 8:10 AM) SpO2 [90-100 %] 98 % 98 % 95 % (01/24/19 9:00 AM) (01/24/19 8:20 AM) (01/24/19 8:10 AM) Blood Pressure [110-120/65-85 140/72 mmHg 139/73 mmHg 122/58 mmHg mmHg] *HI* *HI* *HI* (01/24/19 9:00 AM) (01/24/19 8:20 AM) (01/24/19 8:10 AM) Mean Arterial Pressure, Cuff 94.7 mmHg 95 mmHg 79.3 mmHg (01/24/19 9:00 AM) (01/24/19 8:20 AM) (01/24/19 8:10 AM) LOC (Level of Consciousness) Alert Alert Alert (01/24/19 8:20 AM) (01/24/19 8:10 AM) (01/24/19 8:00 AM) Height 160.02 cm 160.02 cm (01/24/19 7:02 AM) (01/21/19 11:42 AM) Height/Length Dosing 160.02 cm 160.02 cm (01/24/19 7:02 AM) (01/21/19 11:42 AM) Height Inches 63 in 63 in (01/24/19 7:02 AM) (01/21/19 11:42 AM) Weight 56.77 kg 56.70 kg (01/24/19 7:02 AM) (01/21/19 11:42 AM) Weight Dosing 56.77 kg 56.7 kg (01/24/19 7:02 AM) (01/21/19 11:42 AM) Weight Pounds 125 lb 125 lb (01/24/19 7:02 AM) (01/21/19 11:42 AM) Body Mass Index 22.17 kg/m2 22.14 kg/m2 (01/24/19 7:02 AM) (01/21/19 11:42 AM) Problem List Condition Effective Dates Status Health Status Informant Abdominal pain(Confirmed) Active Acid reflux(Confirmed) Active Anemia(Confirmed) Active Anxiety(Confirmed) Active Bloating(Confirmed) Active Crohn's disease(Confirmed) 06/03/70 Active GERD - Gastro-esophageal reflux Active disease(Confirmed) MRSA (Methicillin resistant 06/03/10 Inactive Staphylococcus aureus) infection(Confirmed)1, 2 Osteoporosis(Confirmed) Active Rectal pain(Confirmed) Active 1MRSA DOCUMENTED IN [id number] treated several times, no open wounds at present time Allergies, Adverse Reactions, Alerts Substance Reaction Severity Status codeine severe GI upset Active Adhesive Bandage rash Active skin tears Medications biotin 300 mcg oral tablet 300 mcg=1 tabs, Oral, Daily, supplement Start Date: 01/22/19 Stop Date: 02/05/19 Status: Orderedcalcium (as carbonate) 600 mg oral tablet 1,200 mg=2 tabs, Oral, Daily, supplement Start Date: 01/22/19 Stop Date: 02/05/19 Status: OrderedD3-5 oral capsule 5,000 IntUnit=1 caps, Oral, Daily, supplement Start Date: 01/22/19 Stop Date: 02/05/19 Status: OrderedfentaNYL 25 mcg=0.5 mL, Injection, IV, Once, first dose 01/24/19 7:34:00 CDT, stop date 01/24/19 7:34:00 CDT Start Date: 01/24/19 Stop Date: 01/24/19 Status: CompletedfentaNYL 25 mcg=0.5 mL, Injection, IV, Once, first dose 01/24/19 7:28:00 CDT, stop date 01/24/19 7:28:00 CDT Start Date: 01/24/19 Stop Date: 01/24/19 Status: Completedfolic acid 1 mg, Oral, Daily, supplement Start Date: 01/22/19 Stop Date: 02/05/19 Status: Orderedketamine 25 mg=0.5 mL, Soln-IV, IV, Once, first dose 01/24/19 7:38:00 CDT, stop date 7:38:00 CDT Start Date: 01/24/19 Stop Date: 01/24/19 Status: CompletedLidocaine 2% 0.2 mL IV Start [[place]] 0.2 mL, Injection, Subcutaneous, Once PRN for other (see comment), first dose 6:57:00 CDT Start Date: 01/24/19 Stop Date: 01/24/19 Status: DeletedLR 1,000 mL 1,000 mL, IV, 30 mL/hr, start date 01/24/19 6:57:00 CDT Start Date: 01/24/19 Stop Date: 01/24/19 Status: Discontinuedmethotrexate 1 g injection 1,000 mg/m2, IV, qWednesday, crohn's Start Date: 01/22/19 Stop Date: 02/05/19 Status: Orderedmidazolam 0.5 mg=0.5 mL, Injection, IV, Once, first dose 01/24/19 7:28:00 CDT, stop date 01/24/19 7:28:00 CDT Start Date: 01/24/19 Stop Date: 01/24/19 Status: Completedmidazolam 0.5 mg=0.5 mL, Injection, IV, Once, first dose 01/24/19 7:34:00 CDT, stop date 01/24/19 7:34:00 CDT Start Date: 01/24/19 Stop Date: 01/24/19 Status: CompletedMisc Medication 300 mL, Soln-IV, IV, Once, first dose 01/24/19 8:05:00 CDT, stop date 01/24/19 8 :05:00 CDT Start Date: 01/24/19 Stop Date: 01/24/19 Status: CompletedProlia 60 mg/mL subcutaneous solution 60 mg, Subcutaneous, q6mo, osteoporosis Start Date: 01/22/19 Stop Date: 02/05/19 Status: Orderedpropofol 20 mg=2 mL, Emulsion, IV, Once, first dose 01/24/19 7:46:00 CDT, stop date 01/24 7:46:00 CDT Start Date: 01/24/19 Stop Date: 01/24/19 Status: CompletedRemicade 100 mg intravenous injection 5 mg/kg, IV, q6wk, crohn's disease Start Date: 01/22/19 Stop Date: 02/05/19 Status: OrderedVitamin B12 Methylcobalamin 2000 mcg oral capsule See Instructions, supplement Start Date: 01/22/19 Status: Ordered Results No data available for this section Immunizations No data available for this section Procedures Procedure Date Related Diagnosis Body Site Status COLONOSCOPY FLEXIBLE; DIAGNOSTIC; INCL. 01/24/19 Completed COLLECTION OF SPECIMENS 18965 (N/A)1 Colonoscopy 06/03/16 Completed Anorectal abscess 06/03/13 Completed Colon2 06/03/01 Completed Colon3 06/03/70 Completed Appendectomy4 Completed Umbilical hernia Completed 1auto-populated from documented surgical [id number] procedure Social History Social History Type Response Assessment and Plan No data available for this section
[2019-02-17] MEDS ORDERED: NA CHLORIDE 0.9% 250 ML ONE (09:26)
[2019-02-17] MEDS ORDERED: NA CHLORIDE 0.9% IV ONE (09:30)
[2019-02-17] MEDS ORDERED: INFLIXIMAB DYYB IV ONE (09:30)
[2019-02-17 10:22] VITALS: BMI 22.3
[2019-02-17 13:39] VITALS: BP 112/58; TEMP 97.8; O2SAT 98
== END 2019-02-17 12:16 | disposition home or self-care (01) ==
LOC: DS 08:56
PROVIDERS: ATTEND Internal Medicine Gastroenterology
DX: K50.90 Crohn's disease, unspecified, without complications (principal)
CPT/HCPCS: 96365; 96366; Q5103

== ENCOUNTER 2019-04-01 08:04 | Day surgery (SDC) | payer OTHER ==
[2019-04-01] MEDS ORDERED: NA CHLORIDE 0.9% 250 ML ONE (08:25)
[2019-04-01] MEDS ORDERED: NA CHLORIDE 0.9% IV ONE (08:30)
[2019-04-01] MEDS ORDERED: INFLIXIMAB DYYB IV ONE (08:30)
[2019-04-01 09:19] VITALS: BMI 22.3
[2019-04-01 11:23] VITALS: BP 112/57; TEMP 97; O2SAT 98
== END 2019-04-01 11:35 | disposition home or self-care (01) ==
LOC: DS 08:04
PROVIDERS: ATTEND Internal Medicine Gastroenterology
DX: K50.90 Crohn's disease, unspecified, without complications (principal)
CPT/HCPCS: 96365; 96366; Q5103; J7030 ×2

== ENCOUNTER 2019-05-19 09:03 | Day surgery (SDC) | payer OTHER ==
[2019-05-19] MEDS ORDERED: INFLIXIMAB DYYB IV ONE (09:15)
[2019-05-19] MEDS ORDERED: NA CHLORIDE 0.9% IV ONE (09:15)
[2019-05-19] MEDS ORDERED: NA CHLORIDE 0.9% 250 ML ONE (09:33)
[2019-05-19 16:42] VITALS: BMI 24.7
[2019-05-19 16:46] VITALS: BP 110/65; TEMP 97; O2SAT 100
== END 2019-05-19 12:40 | disposition home or self-care (01) ==
LOC: DS 09:03
PROVIDERS: ATTEND Internal Medicine Gastroenterology
DX: K50.90 Crohn's disease, unspecified, without complications (principal)
CPT/HCPCS: 96365; 96366; Q5103; J7030 ×2

== ENCOUNTER 2019-06-25 08:01 | Day surgery (SDC) | payer OTHER ==
--- OUTSIDE RECORDS SUMMARY | 2019-06-25 08:13 | XMS REPORT | Summary of Care ---
:1945 Author Organization [facility] Address [address] [place] [address] Care Team Providers Name Role Phone KATHERINE GALVEZ MD Unavailable Unavailable KUNAL BLAKELY MD Unavailable Unavailable Functional Status Name Dates Details Functional status health issues are not documented Status: Name Dates Details Cognitive status health issues are not documented Status: Problems Name Dates Details Active medical history not documented Status: Medications Name Dates Details Medications not documented Allergies and Adverse Reactions Name Dates Details Allergy history not documented Status: Procedures Procedure Dates Details Procedures not documented Immunization Name Dates Details Immunizations not documented Social History Name Dates Details Unknown if ever smoked Vital Signs Date Test Result Details No Known Vitals to report Results Date Description Value Details Results not documented Plan of Care Name Dates Details Planned Observations Planned Goals not documented Planned Encounters Appointment; KUNAL BLAKELY On: 18-May-2019 10:00 Instructions Name Dates Details Instructions not documented Encounters Appointment; KUNAL BLAKELY On: 16-May-2017 14:30 Encounter Diagnosis: Problem not documented Appointment; KUNAL BLAKELY On: 23-May-2017 11:00 Encounter Diagnosis: Problem not documented Appointment; KUNAL BLAKELY On: 24-Jun-2017 11:00 Encounter Diagnosis: Problem not documented Appointment; KUNAL BLAKELY On: 26-Sep-2017 10:30 Encounter Diagnosis: Problem not documented Appointment; KUNAL BLAKELY On: 26-Dec-2017 10:30 Encounter Diagnosis: Problem not documented Appointment; KUNAL BLAKELY On: 23-Jan-2018 11:30 Encounter Diagnosis: Problem not documented Appointment; KUNAL BLAKELY On: 01-May-2018 10:45 Encounter Diagnosis: Problem not documented Appointment; KUNAL BLAKELY On: 14-Aug-2018 11:00 Encounter Diagnosis: Problem not documented Appointment; KUNAL BLAKELY On: 06-Nov-2018 11:15 Encounter Diagnosis: Problem not documented Appointment; KUNAL BLAKELY On: 12-Jan-2019 10:45 Encounter Diagnosis: Problem not documented Appointment; KUNAL BLAKELY On: 24-Jan-2019 8:30 Encounter Diagnosis: Problem not documented Appointment; KUNAL BLAKELY On: 12-Feb-2019 15:00 Encounter Diagnosis: Problem not documented
[2019-06-25] MEDS ORDERED: INFLIXIMAB DYYB IV ONE (08:30)
[2019-06-25] MEDS ORDERED: NA CHLORIDE 0.9% IV ONE (08:30)
[2019-06-25] MEDS ORDERED: NA CHLORIDE 0.9% 250 ML ONE (08:41)
[2019-06-25 09:10] VITALS: BMI 23.0
[2019-06-25 11:28] VITALS: BP 108/53; TEMP 98; O2SAT 95
== END 2019-06-25 11:22 | disposition home or self-care (01) ==
LOC: DS 08:01
PROVIDERS: ATTEND Internal Medicine Gastroenterology
DX: K50.90 Crohn's disease, unspecified, without complications (principal)
CPT/HCPCS: 96365; 96366; Q5103; J7030 ×2

== ENCOUNTER 2019-08-04 08:03 | Day surgery (SDC) | payer OTHER ==
[2019-08-04] MEDS ORDERED: NA CHLORIDE 0.9% 500 ML ONE (08:20)
[2019-08-04] MEDS ORDERED: NA CHLORIDE 0.9% IV ONE (08:30)
[2019-08-04] MEDS ORDERED: INFLIXIMAB DYYB IV ONE (08:30)
[2019-08-04 09:10] VITALS: BMI 23.0
[2019-08-04 11:06] VITALS: BP 115/52; TEMP 97.7; O2SAT 97
== END 2019-08-04 10:55 | disposition home or self-care (01) ==
LOC: DS 08:03
PROVIDERS: ATTEND Internal Medicine Gastroenterology
DX: K50.90 Crohn's disease, unspecified, without complications (principal)
CPT/HCPCS: 96365; 96366; Q5103; J7030; J7040

== ENCOUNTER 2019-09-16 08:45 | Day surgery (SDC) | payer OTHER ==
--- OUTSIDE RECORDS SUMMARY | 2019-09-16 09:16 | XMS REPORT | Summary of Care ---
:1945 Author Organization [facility] Address [address] [place] [address] Care Team Providers Name Role Phone LENNY CORONADO Unavailable Unavailable REDDY CORONADO Unavailable Unavailable Functional Status Name Dates Details Functional status health issues are not documented Status: Name Dates Details Cognitive status health issues are not documented Status: Problems Name Dates Details Active medical history not documented [facility]: Medications Name Dates Details Medications not documented Allergies and Adverse Reactions Name Dates Details Allergy history not documented Status: Procedures Procedure Dates Details Procedures not documented Immunization Name Dates Details Immunizations not documented Social History Name Dates Details Tobacco smoking consumption unknown (finding) Vital Signs Date Test Result Details No Known Vitals to report Results Date Description Value Details Results not documented Plan of Care Name Dates Details Planned Observations Planned Goals not documented Planned Encounters Appointment; KUNAL BLAKELY On: 17-Aug-2019 10:15 Instructions Name Dates Details Instructions not documented Encounters Appointment; KUNAL BLAKELY On: 26-Sep-2017 10:30 Encounter [...] 12-Feb-2019 15:00 Encounter Diagnosis: Problem not documented Appointment; KUNAL BLAKELY On: 18-May-2019 9:00 Encounter Diagnosis: Problem not documented
[2019-09-16] MEDS ORDERED: NA CHLORIDE 0.9% IV ONE (09:30)
[2019-09-16] MEDS ORDERED: INFLIXIMAB DYYB IV ONE (09:30)
[2019-09-16] MEDS ORDERED: NA CHLORIDE 0.9% 250 ML ONE (10:06)
[2019-09-16 10:24] VITALS: BMI 23.6
[2019-09-16 12:00] VITALS: O2SAT 99
[2019-09-16 13:21] VITALS: BP 113/64; TEMP 97.2
== END 2019-09-16 12:47 | disposition home or self-care (01) ==
LOC: DS 08:45
PROVIDERS: ATTEND Internal Medicine Gastroenterology
DX: K50.911 Crohn's disease, unspecified, with rectal bleeding (principal)
CPT/HCPCS: 96365; 96366; Q5103; J7030 ×2

== ENCOUNTER 2019-10-30 07:59 | Day surgery (SDC) | payer OTHER ==
--- OUTSIDE RECORDS SUMMARY | 2019-10-29 09:16 | XMS REPORT ---
:1945 Author Organization [facility] t Address [address] [place] [address] Care Team Providers Name Role Phone BLAKELY Attending Clinician Unavailable Blakely Attending Clinician Blakely Admitting Clinician Problems Condition Condition Condition Status Onset Resolution Last Treating Co mments Source Name Details Category Date Date Treatment Clinician Date Crohn's Problem Active 1970-2019-01-26 [facility] disease 1- 04:00:30 (disorder) Crohn's 00:00: disease 00 (disorder) Active 06/03/1970 Problem 01/26/2019 [facility] Abdominal Problem Active 2019-01-26 [facility] pain 04:00:30 (finding) Abdominal pain (finding) Active Problem 01/26/2019 [facility] Acid Problem Active 2019-01-26 [facility] reflux 04:00:30 (finding) Acid reflux (finding) Active Problem 01/26/2019 [facility] Anemia Problem Active 2019-01-26 [facility] (disorder) 04:00:30 Anemia (disorder) Active Problem 01/26/2019 [facility] Anxiety Problem Active 2019-01-26 [facility] (finding) 04:00:30 Anxiety (finding) Active Problem 01/26/2019 [facility] Swollen Problem Active 2019-01-26 [facility] abdomen 04:00:30 (finding) Swollen abdomen (finding) Active Problem 01/26/2019 [facility] Gastroesop Problem Active 2019-01-26 U [facility] hageal 04:00:30 reflux disease Gastroesop (disorder) hageal reflux disease (disorder) Active Problem 01/26/2019 [facility] Osteoporos Problem Active 2019-01-26 [facility] is 04:00:30 (disorder) Osteoporos is (disorder) Active Problem 01/26/2019 [facility] Rectal Problem Active 2019-01-26 [facility] pain 04:00:30 (finding) Rectal pain (finding) Active Problem 01/26/2019 [facility] Crohn's Problem 2019-0 2019-01-26 2019-01-26 [facility] disease of 01-24 04:00:30 04:00:30 small Crohn's 05:00: intestine disease of 00 without small complicati intestine ons without complicati ons 01/24/2019 01/26/2019 [facility] Allergies, Adverse Reactions, Alerts Allergy Allergy Status Severity Reaction(s) Onset Inactive Treating Comm ents Source Name Type Date Date Clinician codeine codeine Active Memoria l [facility] Adhesive Adhesive Active Memori a Bandage Bandage l [facility] l Medications Ordered Filled Start Stop Current Ordering Indication Dosage Frequency Signature Comments Components Source Medication Medication Date Date Medication? Clinician (SIG) Name Name Mis 2019-0 No 300 mL, [facility] Medication 01-24 Soln-IV, 13:05: IV, Once, 00 first dose 01/24/19 8:05:00 CDT, stop date 01/24/19 8:05:00 CDT propofol 2019-0 No 20 mg = 2 [facility] 8-24 mL, 12:46: Emulsion, 00 IV, Once, first dose 01/24/19 7:46:00 CDT, stop date 01/24/19 7:46:00 CDT ketamine 2019-0 No 25 mg = [facility] 8-24 0.5 mL, 12:38: Soln-IV, 00 IV, Once, first dose 01/24/19 7:38:00 CDT, stop date 01/24/19 7:38:00 CDT midazolam 2019-0 No 0.5 mg = [facility] 8-24 0.5 mL, 12:34: Injection, 00 IV, Once, first dose 01/24/19 7:34:00 CDT, stop date 01/24/19 7:34:00 CDT fentaNYL 2019-0 No 25 mcg = [facility] 8-24 0.5 mL, 12:34: Injection, 00 IV, Once, first dose 01/24/19 7:34:00 CDT, stop date 01/24/19 7:34:00 CDT midazolam 2019-0 No 0.5 mg = [facility] 8-24 0.5 mL, 12:28: Injection, 00 IV, Once, first dose 01/24/19 7:28:00 CDT, stop date 01/24/19 7:28:00 CDT fentaNYL 2019-0 No 25 mcg = [facility] 24 0.5 mL, 12:28: Injection, 00 IV, Once, first dose 01/24/19 7:28:00 CDT, stop date 01/24/19 7:28:00 CDT Lidocaine 2019-0 Yes 0.2 mL, [facility] 2% 0.2 mL 01-24 Injection, IV Start 11:57: Subcutaneo [[place]] 00 us, Once PRN for other (see comment), first dose 01/24/19 6:57:00 CDT LR 1,000 mL 2019 No 1,000 mL, U SPI 01-24 IV, 30 11:57: mL/hr, 00 start date 01/24/19 6:57:00 CDT Calcium 2019-0 Yes 1,200 mg = [facility] Carbonate 01-22 2 tabs, 1500 MG 15:27: Oral, Oral Tablet 00 Daily, supplement D3-5 oral 2018-0 Yes 5,000 [facility] capsule 01-22 IntUnit = 15:26: 1 caps, 00 Oral, Daily, supplement biotin 300 2018-0 Yes 300 mcg = [facility] mcg oral 01-22 1 tabs, tablet 15:25: Oral, 00 Daily, supplement Vitamin B12 2018-0 Yes See [facility] Methylcobal 01-22 Instructio gipson 1999 15:24: ns, mcg oral 00 supplement capsule Folic Acid 0 Yes 1 mg, [facility] 01-22 Oral, 15:23: Daily, 00 [place] 1 ML [address] Yes 60 mg, [facility] denosumab 01-22 Subcutaneo 60 MG/ML 14:16: us, q6mo, Prefilled 00 osteoporos Syringe is [Prolia] methotrexat 2019-0 Yes 1,000 [facility] e 1 g 8- mg/m2, IV, injection 14:15: qWednes 00 , crohn's infliximab 2019-0 Yes 5 mg/kg, LONG TERM I 10 MG/ML 01-22 IV, q6wk, Injectable 14:14: crohn's Solution 00 disease [Remicade] Vital Signs Vital Name Observation Time Observation Value Comments Source Heart Rate 2019-01-24 14:00:00 [facility] Systolic (mm Hg) 2019-01-24 14:00:00 [facility] Diastolic (mm Hg) 2019-01-24 14:00:00 LONG TERM I Respitory Rate 2019-01-24 14:00:00 [facility] Respitory Rate 2019-01-24 13:20:00 [facility] Heart Rate 2019-01-24 13:20:00 [facility] Systolic (mm Hg) 2019-01-24 13:20:00 [facility] Diastolic (mm Hg) 2019-01-24 13:20:00 LONG TERM I Respitory Rate 2019-01-24 13:10:00 [facility] Heart Rate 2019-01-24 13:10:00 [facility] Systolic (mm Hg) 2019-01-24 13:10:00 [facility] Diastolic (mm Hg) 2019-01-24 13:10:00 LONG TERM I Temperature Oral (F) 2019-01-24 13:00:00 36.4 Jazmin [facility] Height 2019-01-24 12:02:00 160.02 cm [facility] Temperature Oral (F) 2019-01-24 12:02:00 36.6 Jazmin [facility] Height 2019-01-21 16:42:00 160.02 cm [facility] Procedures Procedure Date / Time Performed Performing Clinician [facility] COLONOSCOPY FLEXIBLE; DIAGNOSTIC; 2019-01-24 12:45:00 [facility] INCL. COLLECTION OF SPECIMENS [id number] (N/A)<sup>1</sup> Colonoscopy 2016-06-03 06:00:00 [facility] Anorectal abscess 2013-06-03 06:00:00 [facility] Colon<sup>2</sup> 2001-06-03 06:00:00 [facility] Colon<sup>3</sup> 1970-06-03 06:00:00 [facility] Appendectomy<sup>4</sup> [facility] Umbilical hernia [facility] Encounters Start End Encounter Admission Attending Care Care Encounter Source Date/Time Date/Time Type Type Clinicians Facility Department ID 2019-05-18 2019-05-18 SNEHA Sheomaker UTP [id number] Univers 09:00:00 09:00:00 t; mayte BLAKELY of [facility] ans 2019-02-12 2019-02-12 SNEHA Shoemaker UTP [id number] Univers 15:00:00 15:00:00 t; mayte BLAKELY of [facility] ans 2019-01-24 2019-01-24 Outpatient MHIEALT [facility] [id number] [facility] 11:16:16 14:00:00 [facility] 2019-01-24 2019-01-24 Outpatient MHIEALT [facility] [id number] Surgica 06:16:16 09:00:00 [facility] 2019-01-24 2019-01-24 Outpatient Sneha Blakely [id number] 06:16:16 09:00:00 8 2019-01-24 2019-01-24 Appointmen SNEHA BLAKELY UTP UTP [id number] Univers 08:30:00 08:30:00 t; BLAKELY, ity of [facility] 2019-01-12 2019-01-12 Appointmen SNEHA BLAKELY UTP UTP [id number] Univers 10:45:00 10:45:00 t; BLAKELY, ity of [facility] 2018-11-06 2018-11-06 Appointmen SNEHA BLAKELY UTP UTP [id number] Univers 11:15:00 11:15:00 t; BLAKELY, ity of [facility] 2018-08-14 2018-08-14 Appointmen SNEHA BLAKELY UTP UTP [id number] Univers 11:00:00 11:00:00 t; BLAKELY, ity of [facility] 2018-05-01 2018-05-01 Appointmen SNEHA BLAKELY UTP UTP [id number] Univers 10:45:00 10:45:00 t; BLAKELY, ity of [facility] ans 2018-01-23 2018-01-23 Appointmen SNEHA BLAKELY UTP UTP [id number] Univers 11:30:00 11:30:00 t; BLAKELY, ity of [facility] ans 2017-12-26 2017-12-26 Appointmen SNEHA BLAKELY UTP UTP [id number] Univers 10:30:00 10:30:00 t; BLAKELY, ity of [facility] ans 2017-09-26 2017-09-26 Appointmen SNEHA BLAKELY UTP UTP [id number] Univers 10:30:00 10:30:00 t; BLAKELY, ity of [facility] 2017-06-24 2017-06-24 Appointmen SNEHA BLAKELY UTP UTP [id number] Univers 11:00:00 11:00:00 t; mayte BLAKELY of [facility] 2017-05-23 2017-05-[facility] BLAK[facility] SNEHA [facility] UTP [id number] Univers 11:00:00 11:00:00 t; mayte BLAKELY of [facility] 2017-05-16 2017-05-[facility] REDDY SNEHA [facility] UTP [id number] Univers 14:30:00 14:30:00 t; mayte BLAKELY of [facility] Results This patient has no known results.
--- OUTSIDE RECORDS SUMMARY | 2019-10-29 09:16 | XMS REPORT | Continuity of Care Document ---
:1945 Author Organization [facility] Care Team Providers Name Role Phone [facility] Unavailable Un available Problems Problem Status Onset Classification Date Comments Sourc e Date Reported Crohn's disease of 01/25/20 01/26/2019 [facility] small intestine 19 without complications Methicillin-resista Inactive 06/03/19 Problem 01/26/2019 MRSA DOCUMENTED IN ERROR [facility] nt staphylococcus 11 neck tr eated several times, no open wounds at present time aureus infection (disorder) Crohn's disease Active 06/03/18 Problem 01/26/2019 LONG TERM I (disorder) 71 Abdominal pain Active Problem 01/26/2019 [facility] (finding) Acid reflux Active Problem 01/26/2019 [facility] (finding) Anemia (disorder) Active Problem 01/26/2019 [facility] Anxiety (finding) Active Problem 01/26/2019 U [facility] Swollen abdomen Active Problem 01/26/2019 LONG TERM I (finding) Gastroesophageal Active Problem 01/26/2019 [facility] reflux disease (disorder) Osteoporosis Active Problem 01/26/2019 [facility] (disorder) Rectal pain Active Problem 01/26/2019 [facility] (finding) Medications Medication Details Route Status Patient Ordering Order [facility], Inactive [facility] Soln-IV, IV, 2018 Once, first dose 01/24/19 8:05:00 CDT, stop date 01/24/19 8:05:00 CDT propofol 20 mg = 2 mL, Inactive [facility] Emulsion, IV, 2018 Once, first dose 01/24/19 7:46:00 CDT, stop date 01/24/19 7:46:00 CDT ketamine 25 mg = 0.5 Inactive [facility] mL, Soln-IV, 2019 IV, Once, first dose 01/24/19 7:38:00 CDT, stop date 01/24/19 7:38:00 CDT midazolam 0.5 mg = 0.5 Inactive [facility] mL, Injection, 2019 IV, Once, first dose 01/24/19 7:34:00 CDT, stop date 01/24/19 7:34:00 CDT fentaNYL 25 mcg = 0.5 Inactive [facility] mL, Injection, 2018 IV, Once, first dose 01/24/19 7:34:00 CDT, stop date 01/24/19 7:34:00 CDT midazolam 0.5 mg = 0.5 Inactive [facility] mL, Injection, 2018 IV, Once, first dose 01/24/19 7:28:00 CDT, stop date 01/24/19 7:28:00 CDT fentaNYL 25 mcg = 0.5 Inactive [facility] mL, Injection, 2018 IV, Once, first dose 01/24/19 7:28:00 CDT, stop date 01/24/19 7:28:00 CDT Lidocaine 2% 0.2 0.2 mL, Inactive [facility] mL IV Start Injection, 2018 [[facility]] Subcutaneous, Once PRN for other (see comment), first dose 01/24/19 6:57:00 CDT LR 1,000 mL 1,000 mL, IV, Inactive [facility] 30 mL/hr, 2018 start date 01/24/19 6:57:00 CDT Calcium Carbonate 1,200 mg = 2 Active U SPI 1500 MG Oral tabs, Oral, 2019 Tablet Daily, supplement D3-5 oral capsule 5,000 IntUnit Active [facility] = 1 caps, 2019 Oral, Daily, supplement biotin 300 mcg 300 mcg = 1 Active [facility] oral tablet tabs, Oral, 2018 Daily, supplement Vitamin B12 See Active I Methylcobalamin Instructions, 2019 2000 mcg oral supplement capsule Folic Acid 1 mg, Oral, Active [facility] Daily, 2019 supplement 1 ML denosumab 60 60 mg, Active [facility] MG/ML Prefilled Subcutaneous, 2019 Syringe [Prolia] q6mo, osteoporosis methotrexate 1 g 1,000 mg/m2, Active 01/22/ [facility] injection IV, 2019 qWednesday, crohn's infliximab 10 5 mg/kg, IV, Active [facility] MG/ML Injectable q6wk, crohn's 2019 Solution disease [Remicade] Allergies, Adverse Reactions, Alerts Substance Category Reaction Severity Reaction Status Date Comments S ource type Reported codeine Assertion severe GI Drug Active [facility] upset allergy Adhesive Assertion rash, skin Drug Active PI Bandage tears allergy Immunizations No Data Provided for This Section [...] 01/21/2019 [facility] Height 160.02 cm 01/21/2019 [facility] Encounters Location Location Encounter Encounter Reason Attending ADM [place] Stat us Source Details Type Number For Provider Date Date Visit [facility] Outpatient [id number] Sneha Bonilla 01/24 01/24 [facility] Outpatient [id number] Sneha Bonilla 01/24 01/24 [facility] [place] Procedures Procedure Code Date Perfomer Comments Source COLONOSCOPY 01/24/2019 auto-populated [facility] FLEXIBLE; from documented DIAGNOSTIC; INCL. surgical case COLLECTION OF SPECIMENS 75739 (N/A)<sup>1</sup> Colonoscopy [id number] 06/03/2016 [facility] Anorectal abscess [id number] 06/03/2013 [facility] Colon<sup>2</sup> [id number] 06/03/2001 colon resection US PI Colon<sup>3</sup> [id number] 06/03/1970 colon resection US PI Appendectomy<sup>4 [id number] open procedure US PI </sup> Umbilical hernia [id number] [facility] Assessment and Plan No Data Provided for This Section Plan of Care No Data Provided for This Section Social History Social History Date Source Social History TypeResponse 01/24/2019 [facility] Family History No Data Provided for This Section Advance Directives No Data Provided for This Section Functional Status No Data Provided for This Section
[2019-10-30] MEDS ORDERED: INFLIXIMAB DYYB IV ONE (08:15)
[2019-10-30] MEDS ORDERED: NA CHLORIDE 0.9% IV ONE (08:15)
--- OUTSIDE RECORDS SUMMARY | 2019-10-30 09:05 | XMS REPORT | Continuity of Care Document ---
:1945 Author Organization [employer] Care Team Providers Name Role Phone [employer] Unavailable Un available Problems Problem Status Onset Classification Date Comments Sourc e Date Reported Crohn's disease of 01/25/20 01/26/2019 [facility] small intestine 19 without complications Methicillin-resista Inactive 06/03/19 Problem 01/26/2019 MRSA DOCUMENTED IN ERROR [facility] nt staphylococcus 11 neck tr eated several times, no open wounds at present time aureus infection (disorder) Crohn's disease Active 06/03/18 Problem 01/26/2019 JAIL I (disorder) 71 Abdominal pain Active Problem 01/26/2019 [facility] (finding) Acid reflux Active Problem 01/26/2019 [facility] (finding) Anemia (disorder) Active Problem 01/26/2019 [facility] Anxiety (finding) Active Problem 01/26/2019 U [facility] Swollen abdomen Active Problem 01/26/2019 JAIL I (finding) Gastroesophageal Active Problem 01/26/2019 [facility] reflux disease (disorder) Osteoporosis Active Problem 01/26/2019 [facility] (disorder) Rectal pain Active Problem 01/26/2019 [facility] (finding) Medications Medication Details Route Status Patient Ordering Order Source [facility], Inactive [facility] Soln-IV, [...] Inactive [facility] mL IV Start Injection, 2018 [[facility]] Subcutaneous, Once PRN for other (see comment), [...] Location Location Encounter Encounter Reason Attending ADM [place] Stat us Source Details Type Number For Provider Date Date Visit [facility] Outpatient [id number] Sneha Bonilla 01/24 01/24 [facility] Outpatient [id number] Sneha Bonilla 01/24 01/24 [facility] [place] Procedures Procedure Code Date Perfomer Comments Source COLONOSCOPY 01/24/2019 auto-populated [facility] FLEXIBLE; from documented DIAGNOSTIC; INCL. surgical case COLLECTION OF SPECIMENS 81527 (N/A)<sup>1</sup> Colonoscopy [id number] 06/03/2016 [facility] Anorectal abscess [id number] 06/03/2013 [facility] Colon<sup>2</sup> [id number] 06/03/2001 colon resection US PI Colon<sup>3</sup> [id number] 06/03/1970 colon resection US PI Appendectomy<sup>4 [id number] open procedure US PI </sup> Umbilical hernia [id number] [facility] Assessment and Plan No Data Provided for This Section Plan of Care No Data Provided for This Section Social History Social History Date Source Social History TypeResponse 01/24/2019 [facility] Family History No Data Provided for This Section Advance Directives No Data Provided for This Section Functional Status No Data Provided for This Section
--- OUTSIDE RECORDS SUMMARY | 2019-10-30 09:05 | XMS REPORT ---
:1945 Author Organization [facility] t Address [address] [place] [address] Care Team Providers Name Role Phone BLAKELY Attending Clinician Unavailable Blakely Attending Clinician Blakely Admitting Clinician Problems Condition Condition Condition Status Onset Resolution Last Treating Co mments Source Name Details Category Date Date Treatment Clinician Date Crohn's Problem Active 1970-0 2019-01-26 [facility] disease 1- 04:00:30 (disorder) Crohn's 00:00: [...] Date Clinician codeine codeine Active Memoria l [facility] l Adhesive Adhesive Active Memori a Bandage Bandage l [facility] l Medications Ordered Filled Start Stop Current [...] , crohn's infliximab 2019-0 Yes 5 mg/kg, PRISON I 10 MG/ML 01-22 IV, q6wk, Injectable 14:14: crohn's Solution 00 disease [Remicade] Vital Signs Vital Name Observation Time Observation Value Comments Source Heart Rate 2019-01-24 14:00:00 [facility] Systolic (mm Hg) 2019-01-24 14:00:00 [facility] Diastolic (mm Hg) 2019-01-24 14:00:00 PRISON I Respitory Rate 2019-01-24 14:00:00 [facility] Respitory Rate 2019-01-24 13:20:00 [facility] Heart Rate 2019-01-24 13:20:00 [facility] Systolic (mm Hg) 2019-01-24 13:20:00 [facility] Diastolic (mm Hg) 2019-01-24 13:20:00 PRISON I Respitory Rate 2019-01-24 13:10:00 [facility] Heart Rate 2019-01-24 13:10:00 [facility] Systolic (mm Hg) 2019-01-24 13:10:00 [facility] Diastolic (mm Hg) 2019-01-24 13:10:00 PRISON I Temperature Oral (F) 2019-01-24 13:00:00 36.4 Jazmin [facility] Height 2019-01-24 12:02:00 160.02 cm [facility] Temperature Oral (F) 2019-01-24 12:02:00 36.6 Jazmin [facility] Height 2019-01-21 16:42:00 160.02 cm [facility] Procedures Procedure Date / Time Performed Performing Clinician [facility] e COLONOSCOPY FLEXIBLE; DIAGNOSTIC; 2019-01-24 12:45:00 [facility] INCL. COLLECTION OF SPECIMENS [id number] (N/A)<sup>1</sup> Colonoscopy 2016-06-03 06:00:00 [facility] Anorectal abscess 2013-06-03 06:00:00 [facility] Colon<sup>2</sup> 2001-06-03 06:00:00 [facility] Colon<sup>3</sup> 1970-06-03 06:00:00 [facility] Appendectomy<sup>4</sup> [facility] Umbilical hernia [facility] Encounters Start End Encounter Admission Attending Care Care Encounter Source Date/Time Date/Time Type Type Clinicians Facility Department ID 2019-05-18 2019-05-18 SNEHA Shoemaker UTP [id number] Univers 09:00:00 09:00:00 t; mayte BLAKELY of [facility] ans 2019-02-12 2019-02-12 SNEHA Shoemaker UTP [id number] Univers 15:00:00 15:00:00 t; mayte BLAKELY of [facility] ans 2019-01-24 2019-01-24 Outpatient MHIEALT [facility] [id number] [facility]PI 11:16:16 14:00:00 [facility] 2019-01-24 2019-01-24 Outpatient MHIEALT [facility] [id number] Surgica 06:16:16 09:00:00 [facility] 2019-01-24 2019-01-24 Outpatient Sneha Blakely [id number] 06:16:16 09:00:00 8 2019-01-24 2019-01-24 Appointmen SNEHA BLAKELY UTP UTP [id number] Univers 08:30:00 08:30:00 t; BLAKELY, ity of [facility] 2019-01-12 2019-01-12 Appointmen SNEHA BLAKELY UTP UTP [id number] Univers 10:45:00 10:45:00 t; BLAKELY, ity of [facility] 2018-11-06 2018-11-06 Appointmen SNEHA BLAKELY UTP UTP [id number] Univers 11:15:00 11:15:00 t; BLAKELY, ity of [facility] 2018-08-14 2018-08-14 Appointmen SNEHA BLAKELY UTP UTP [id number] Univers 11:00:00 11:00:00 t; BLAKELY, ity of [facility] 2018-05-01 2018-05-01 Appointmen SNEHA BLAKELY UTP UTP [id number] Univers 10:45:00 10:45:00 t; BLAKLEY, ity of [facility] ans 2018-01-23 2018-01-23 Appointmen SNEHA BLAKELY UTP UTP [id number] Univers 11:30:00 11:30:00 t; BLAKELY, ity of [facility] ans 2017-12-26 2017-12-26 Appointmen SNEHA BLAKELY UTP UTP [id number] Univers 10:30:00 10:30:00 t; BLAKELY, ity of [facility] ans 2017-09-26 2017-09-26 Appointmen SNEHA BLAKELY UTP UTP [id number] Univers 10:30:00 10:30:00 t; BLAKELY, ity of [facility] 2017-06-24 2017-06-24 Appointmen SNEHA BLAKELY UTP UTP [id number] Univers 11:00:00 11:00:00 t; mayte BLAKELY of [facility] 2017-05-23 2017-05-23 [email or web address] UTP [id number] Univers 11:00:00 11:00:00 t; mayte BLAKELY of [facility] 2017-05-16 2017-05-16 [facility] REDDY SNEHA [facility] [[email or web address] UTP [id number] Univers 14:30:00 14:30:00 t; mayte BLAKELY of [facility] Results This patient has no known results.
[2019-10-30] MEDS ORDERED: NA CHLORIDE 0.9% 250 ML ONE (09:16)
[2019-10-30 13:06] VITALS: BMI 23.7
[2019-10-30 13:13] VITALS: BP 121/58; TEMP 97.9; O2SAT 97
== END 2019-10-30 11:55 | disposition home or self-care (01) ==
LOC: DS 07:59
PROVIDERS: ATTEND Internal Medicine Gastroenterology
DX: K50.911 Crohn's disease, unspecified, with rectal bleeding (principal)
CPT/HCPCS: 96365; 96366; Q5103; J7030 ×2

== ENCOUNTER 2020-01-21 09:03 | Day surgery (SDC) | payer OTHER ==
--- OUTSIDE RECORDS SUMMARY | 2020-01-21 09:07 | XMS REPORT | Continuity of Care Document ---
:1945 Author Organization [facility] t Address [address] [place] [address] Care Team Providers Name Role Phone BLAKELY Attending Clinician Unavailable Blakely Attending Clinician Blakely Admitting Clinician Problems Condition Condition Condition Status Onset Resolution Last Treating Co mments Source Name Details Category Date Date Treatment Clinician Date Crohn's Problem Active 1970-0 2019-01-26 Elie kia disease - 04:00:30 l (disorder) Crohn's 00:00: Her flores disease 00 (disorder) Active 06/03/1970 Problem 01/26/2019 [facility] Abdominal Problem Active 2019-01-26 Me moria pain 04:00:30 l (finding) [place] Abdominal pain (finding) Active Problem 01/26/2019 [facility] Acid Problem Active 2019-01-26 Memor ia reflux 04:00:30 l (finding) Acid [place] reflux (finding) Active Problem 01/26/2019 [facility] Anemia Problem Active 2019-01-26 Memor ia (disorder) 04:00:30 l Anemia [place] (disorder) Active Problem 01/26/2019 [facility] Anxiety Problem Active 2019-01-26 Elie kia (finding) 04:00:30 l Anxiety [place] (finding) Active Problem 01/26/2019 [facility] Swollen Problem Active 2019-01-26 Elie kia abdomen 04:00:30 l (finding) Swollen Herm eulalia abdomen (finding) Active Problem 01/26/2019 [facility] Gastroesop Problem Active 2019-01-26 M emoria hageal 04:00:30 l reflux [place] disease Gastroesop (disorder) hageal reflux disease (disorder) Active Problem 01/26/2019 [facility] Osteoporos Problem Active 2019-01-26 M emoria is 04:00:30 l (disorder) Andrew n Osteoporos is (disorder) Active Problem 01/26/2019 [facility] Rectal Problem Active 2019-01-26 Memor ia pain 04:00:30 l (finding) Rectal Janet nn pain (finding) Active Problem 01/26/2019 [facility] Crohn's Problem 2018-2019-01-26 2019-01-26 Memoria disease of 8-24 04:00:30 04:00:30 l small Crohn's 05:00: [place] intestine disease of 00 without small complicati intestine ons without complicati ons 01/24/2019 01/26/2019 [facility] History of Past Illness Condition Condition Condition Status Onset Resolution Last Treating Co mments Source Name Details Category Date Date Treatment Clinician Date Methicilli Problem Inactiv 2019-01-26 2019-01-26 Memoria n-resistan e 06-03 04:00:30 04:00:30 l t 00:00: [place] staphyloco Methicilli 00 ccus n-resistan aureus t infection staphyloco (disorder) ccus aureus infection (disorder) Inactive 06/03/2010 Problem 01/26/2019 MRSA DOCUMENTED IN ERRORneck treated several times, no open wounds at present time [facility] Allergies, Adverse Reactions, Alerts Allergy Allergy Status Severity Reaction(s) Onset Inactive Treating Comm ents Source Name Type Date Date Clinician codeine codeine Active Memoria l [place] Adhesive Adhesive Active Memori a Bandage Bandage l [place] Medications Ordered Filled Start Stop Current Ordering Indication Dosage Frequency Signature Comments Components Source Medication Medication Date Date Medication? Clinician (SIG) Name Name [facility] No 300 mL, Memoria Medication 8 Soln-IV, l 13:05: IV, Once, [place] 00 first dose 01/24/19 8:05:00 CDT, stop date 01/24/19 8:05:00 CDT propofol 2019- No 20 mg = 2 Elie kia 8-24 mL, l 12:46: Emulsion, [place] 00 IV, Once, first dose 01/24/19 7:46:00 CDT, stop date 01/24/19 7:46:00 CDT ketamine 2019-0 No 25 mg = Memori a 8-24 0.5 mL, l 12:38: Soln-IV, [place] 00 IV, Once, first dose 01/24/19 7:38:00 CDT, stop date 01/24/19 7:38:00 CDT midazolam 2019-0 No 0.5 mg = Elie kia 8-24 0.5 mL, l 12:34: Injection, [place] 00 IV, Once, first dose 01/24/19 7:34:00 CDT, stop date 01/24/19 7:34:00 CDT fentaNYL 2019-0 No 25 mcg = Memor ia 8-24 0.5 mL, l 12:34: Injection, [place] 00 IV, Once, first dose 01/24/19 7:34:00 CDT, stop date 01/24/19 7:34:00 CDT midazolam 2019-0 No 0.5 mg = Elie kia 8-24 0.5 mL, l 12:28: Injection, [place] 00 IV, Once, first dose 01/24/19 7:28:00 CDT, stop date 01/24/19 7:28:00 CDT fentaNYL 2019-0 No 25 mcg = Memor ia 8-24 0.5 mL, l 12:28: Injection, [place] 00 IV, Once, first dose 01/24/19 7:28:00 CDT, stop date 01/24/19 7:28:00 CDT Lidocaine 2019-0 Yes 0.2 mL, Memor ia 2% 0.2 mL 01-24 Injection, l IV Start 11:57: Subcutaneo Her banner [[facility]] 00 , Once PRN for other (see comment), first dose 01/24/19 6:57:00 CDT LR 1,000 mL 2019-0 No 1,000 mL, M emoria 01-24 IV, 30 l 11:57: mL/hr, [place] 00 start date 01/24/19 6:57:00 CDT Calcium 2019-0 Yes 1,200 mg = Elie kia Carbonate 01-22 2 tabs, l 1500 MG 15:27: Oral, Oral Tablet 00 Daily, supplement D3-5 oral 2018- Yes 5,000 Memoria capsule 01-22 IntUnit = l 15:26: 1 caps, [place] Oral, Daily, supplement biotin 300 2019- Yes 300 mcg = Me moria mcg oral 01-22 1 tabs, l tablet 15:25: Oral, Daily, supplement Vitamin B12 Yes See Memori a Methylcobal 01-22 Instructio l gipson 1999 15:24: ns, [place] mcg oral 00 supplement capsule Folic Acid Yes 1 mg, Memori a 01-22 Oral, l 15:23: Daily, [place] 00 supplement 1 ML 2019 Yes 60 mg, Memoria denosumab 01-22 Subcutaneo l 60 MG/ML 14:16: us, q6mo, Herm eulalia Prefilled 00 osteoporos Syringe is [Prolia] methotrexat Yes 1,000 Memor ia e 1 g 8-22 mg/m2, IV, l injection 14:15: qWednesday He rmann , crohn's infliximab Yes 5 mg/kg, Mem oria 10 MG/ML 01-22 IV, q6wk, l Injectable 14:14: crohn's Herm eulalia Solution 00 disease [Remicade] Vital Signs Vital Name Observation Time Observation Value Comments Source Heart Rate 2019-01-24 14:00:00 [facility] [place] Systolic (mm Hg) 2019-01-24 14:00:00 Elie rial [place] Diastolic (mm Hg) 2019-01-24 14:00:00 Mem orial [place] Respitory Rate 2019-01-24 14:00:00 Memori al [place] Respitory Rate 2019-01-24 13:20:00 Memori al [place] Heart Rate 2019-01-24 13:20:00 [facility] [place] Systolic (mm Hg) 2019-01-24 13:20:00 Elie rial [place] Diastolic (mm Hg) 2019-01-24 13:20:00 Mem orial [place] Respitory Rate 2019-01-24 13:10:00 Memori al [place] Heart Rate 2019-01-24 13:10:00 [facility] [place] Systolic (mm Hg) 2019-01-24 13:10:00 Elie rial [place] Diastolic (mm Hg) 2019-01-24 13:10:00 Mem orial [place] Temperature Oral (F) 2019-01-24 13:00:00 36.4 Jazmin [facility] [place] Height 2019-01-24 12:02:00 160.02 cm [facility] [place] Temperature Oral (F) 2019-01-24 12:02:00 36.6 Jazmin [facility] [place] Height 2019-01-21 16:42:00 [facility] Procedures Procedure Date / Time Performed Performing Clinician [facility] e COLONOSCOPY FLEXIBLE; 2019-01-24 12:45:00 Festus Aguillon DIAGNOSTIC; INCL. COLLECTION OF SPECIMENS [id number] (N/A)<sup>1</sup> Colonoscopy 2016-06-03 06:00:00 Soumya [facility] flores Anorectal abscess 2013-06-03 06:00:00 [facility] ermann Colon<sup>2</sup> 2001-06-03 06:00:00 [facility] ermann Colon<sup>3</sup> 1970-06-03 06:00:00 [facility] ermann Appendectomy<sup>4</sup> Hany Altman Umbilical hernia [facility] n Encounters Start End Encounter Admission Attending Care Care Encounter Source Date/Time Date/Time Type Type Clinicians Facility Department ID 2019-05-18 2019-05-18 Heraclio REDDY SNEHA [facility]TP [id number] Univers 09:00:00 09:00:00 t; BLAKELY, ity of [facility] ans 2019-02-12 2019-02-12 [facility] REDDY SNEHA [facility] [id number] Univers 15:00:00 15:00:00 t; BLAKELY, ity of [facility] 2019-01-24 2019-01-24 Outpatient Sneha Blakely [id number] 06:16:16 09:00:00 8 2019-01-24 2019-01-24 [facility] BLAKELY [facility] [id number] Univers 08:30:00 08:30:00 t; BLAKELY, ity of [facility] ans 2019-01-12 2019-01-12 [facility] SNEHA BLAKELY [facility] [id number] Univers 10:45:00 10:45:00 t; BLAKELY, ity of [facility] ans 2018-11-06 2018-11-06 [facility] [id number] Univers 11:15:00 11:15:00 t; BLAKELY, ity of [facility] ans 2018-08-14 2018-08-14 [facility] BLAKELY [facility] [id number] Univers 11:00:00 11:00:00 t; BLAKELY, ity of [facility] ans 2018-05-01 2018-05-01 Appointmen SNEHA BLAKELY UTP UTP [id number] Univers 10:45:00 10:45:00 t; BLAEKLY, ity of [facility] ans 2018-01-23 2018-01-23 Appointmen SNEHA BLAKELY UTP UTP [id number] Univers 11:30:00 11:30:00 t; BLAKELY, ity of [facility] ans 2017-12-26 2017-12-26 [facility] BLAKELY UTP UTP [id number] Univers 10:30:00 10:30:00 t; BLAKELY, ity of [facility] ans 2017-09-26 2017-09-26 Appointmen SNEHA BLAKELY UTP UTP [id number] Univers 10:30:00 10:30:00 t; BLAKELY, ity of [facility] ans 2017-06-24 2017-06-24 Appointmen SNEHA BLAKELY UTP UTP [id number] Univers 11:00:00 11:00:00 t; BLAKELY, ity of [facility] ans 2017-05-23 2017-05-23 [facility] SNEHA BLAKELY UTP UTP [id number] Univers 11:00:00 11:00:00 t; BLAKELY, ity of [facility] ans 2017-05-16 2017-05-16 [facility] BLAKELY UTP UTP [id number] Univers 14:30:00 14:30:00 t; BLAKELY, ity of [facility] ans Results This patient has no known results.
--- OUTSIDE RECORDS SUMMARY | 2020-01-21 09:07 | XMS REPORT | Continuity of Care Document ---
:1945 Author Organization [facility] Care Team Providers Name Role Phone [facility] Unavailable Un available Problems Problem Status Onset Classification Date Comments Sourc e Date Reported Crohn's disease of 01/25/20 01/26/2019 [facility] small intestine 19 without complications Methicillin-resista Inactive 06/03/19 Problem 01/26/2019 MRSA DOCUMENTED IN ERROR [facility] nt staphylococcus 11 neck tr eated several times, no open wounds at present time aureus infection (disorder) Crohn's disease Active 06/03/18 Problem 01/26/2019 [facility] I (disorder) 71 Abdominal pain Active Problem 01/26/2019 [facility] (finding) Acid reflux Active Problem 01/26/2019 [facility] (finding) Anemia (disorder) Active Problem 01/26/2019 [facility] Anxiety (finding) Active Problem 01/26/2019 [facility] Swollen abdomen Active Problem 01/26/2019 [facility] I (finding) Gastroesophageal Active Problem 01/26/2019 US [...] CDT midazolam 0.5 mg = 0.5 Inactive 01/24/ [facility] mL, Injection, 2019 IV, Once, first [...] Inactive [facility] mL IV Start Injection, 2018 [[facility]] Subcutaneous, Once PRN for other (see [...] Location Location Encounter Encounter Reason Attending ADM [place] Stat us Source Details Type Number For Provider Date Date Visit [facility] Outpatient [id number] Sneha Bonilla 01/24 01/24 [facility] Outpatient [id number] Sneha Bonilla 01/24 01/24 [facility] [place] Procedures Procedure Code Date Perfomer Comments Source COLONOSCOPY 01/24/2019 auto-populated [facility] FLEXIBLE; from documented DIAGNOSTIC; INCL. surgical case COLLECTION OF SPECIMENS [id number] (N/A)<sup>1</sup> Colonoscopy [id number] 06/03/2016 [facility] Anorectal abscess [id number] 06/03/2013 [facility] Colon<sup>2</sup> [id number] 06/03/2001 colon resection [facility] Colon<sup>3</sup> [id number] 06/03/1970 colon resection [facility] Appendectomy<sup>4 [id number] open procedure [facility] </sup> Umbilical hernia [id number] [facility] Assessment and Plan No Data Provided for This Section Plan of Care No Data Provided for This Section Social History Social History Date Source Social History TypeResponse 01/24/2019 [facility] Family History No Data Provided for This Section Advance Directives No Data Provided for This Section Functional Status No Data Provided for This Section
[2020-01-21] MEDS ORDERED: NA CHLORIDE 0.9% IV ONE (09:15)
[2020-01-21] MEDS ORDERED: INFLIXIMAB DYYB IV ONE (09:15)
[2020-01-21] MEDS ORDERED: NA CHLORIDE 0.9% 250 ML ONE ×2 (09:26→10:14)
[2020-01-21 13:30] VITALS: BMI 23.7
[2020-01-21 13:41] VITALS: O2SAT 98
[2020-01-21 13:42] VITALS: BP 124/67; TEMP 98.3
== END 2020-01-21 12:50 | disposition home or self-care (01) ==
LOC: DS 09:03
PROVIDERS: ATTEND Internal Medicine Gastroenterology
DX: K50.911 Crohn's disease, unspecified, with rectal bleeding (principal)
CPT/HCPCS: 96365; 96366; Q5103; J7050 ×3

== ENCOUNTER 2020-03-04 08:04 | Day surgery (SDC) | payer OTHER ==
[2020-03-04] MEDS ORDERED: NA CHLORIDE 0.9% IV ONE (08:30)
[2020-03-04] MEDS ORDERED: INFLIXIMAB DYYB IV ONE (08:30)
[2020-03-04] MEDS ORDERED: NA CHLORIDE 0.9% 250 ML ONE (08:45)
[2020-03-04 09:17] VITALS: BMI 23.2
[2020-03-04 10:30] VITALS: BP 121/59; TEMP 97.3; O2SAT 100
--- OUTSIDE RECORDS SUMMARY | 2020-03-09 18:45 | XMS REPORT | Continuity of Care Document ---
:1945 Author Organization [facility] Care Team Providers Name Role Phone [facility] Unavailable Un available Problems Problem Status Onset Classification Date Comments Sourc e Date Reported Crohn's disease of 03/07/20 03/09/2020 [facility] both small and 20 large intestine without complications 2019-nCoV Resolved 12/02/19 Problem 03/09/2020 Patient and [facility] 20 her had low grade fever and not feeling well. Called PCP and was given a place to get COVID test. Test came back positive. Patient and isolated for 14 days and became symptom free. Patient and her then received letter from [facility] they were "cleared". Crohn's disease of 01/25/20 01/26/2019 [facility] small intestine 19 without complications Methicillin-resista Inactive 06/03/19 Problem 03/09/2020 MRSA DOCUMENTED IN ERROR [facility] nt staphylococcus 11 neck tr eated several times, no open wounds at present time aureus infection (disorder) Crohn's disease Active 06/03/18 Problem 03/09/2020 [facility] I (disorder) 71 Abdominal pain Active Problem 03/09/2020 [facility] (finding) Acid reflux Active Problem 03/09/2020 [facility] (finding) Anemia (disorder) Active Problem 03/09/2020 [facility] Anxiety (finding) Active Problem 03/09/2020 [facility] Swollen abdomen Active Problem 03/09/2020 [facility] I (finding) Gastroesophageal Active Problem 03/09/2020 [facility] reflux disease (disorder) Osteoporosis Active Problem 03/09/2020 [facility] (disorder) Rectal pain Active Problem 03/09/2020 [facility] (finding) Medications Medication Details Route Status Patient Ordering Order Source Instructions Provider Date Misc Medication 200 mL, Inactive 03/07/ [facility] Soln-IV, IV, 2019 Once, first dose 03/07/20 9:32:00 CDT, stop date 03/07/20 9:32:00 CDT propofol 50 mg = 5 mL, Inactive 03/07/ [facility] Emulsion, IV, 2019 Once, first dose 03/07/20 9:20:00 CDT, stop date 03/07/20 9:20:00 CDT propofol 50 mg = 5 mL, Inactive 10/05/ [facility] Emulsion, IV, 2019 Once, first dose 03/07/20 9:17:00 CDT, stop date 03/07/20 9:17:00 CDT lidocaine 60 mg = 3 mL, Inactive 1005/ [facility] Injection, IV, 2019 Once, first dose 03/07/20 9:14:00 CDT, stop date 03/07/20 9:14:00 CDT propofol 50 mg = 5 mL, Inactive 03/07/ [facility] Emulsion, IV, 2019 Once, first dose 03/07/20 9:14:00 CDT, stop date 03/07/20 9:14:00 CDT LR 1,000 mL 1,000 mL, IV, Inactive 10/ [facility] 75 mL/hr, 2019 start date 03/07/20 9:10:00 CDT, 1.61, m2 Saline Lock Flush 10 mL, Soln, Inactive 03/07/ [facility] IV Push, As 2020 Indicated PRN for flush, first dose 03/07/20 9:10:00 CDT potassium Oral, Daily, 0 Active 10/05/ [facility] bicarbonate Refill(s) 2019 Lutein Oral, Daily, 0 Active 10/05/ [facility] Refill(s) 2020 LR 1,000 mL 1,000 mL, IV, Inactive 05/ [facility] 30 mL/hr, 2019 start date 03/07/20 7:44:00 CDT, 1.61, m2 Lidocaine 2% 0.2 0.2 mL, Inactive 10/05/ [facility] mL IV Start Injection, 2019 [[facility]] Subcutaneous, Once PRN for other (see comment), first dose 03/07/20 7:44:00 CDT Misc Medication 300 mL, Inactive 01/24/ [facility] Soln-IV, IV, 2019 Once, first dose 01/24/19 8:05:00 CDT, stop date 01/24/19 8:05:00 CDT propofol 20 mg = 2 mL, Inactive 01/24/ [facility] Emulsion, IV, 2019 Once, first dose 01/24/19 7:46:00 CDT, stop [...] Inactive [facility] mL IV Start Injection, 2018 [[facility]] Subcutaneous, Once PRN for other (see comment), first dose 01/24/19 6:57:00 CDT LR 1,000 mL 1,000 mL, IV, Inactive [facility] 30 mL/hr, 2019 start date 01/24/19 6:57:00 CDT Calcium Carbonate 1,200 mg = 2 Active 01/22/ [facility] 1500 MG Oral tabs, Oral, 2019 Tablet Daily, supplement D3-5 oral capsule 5,000 IntUnit Active [facility] = 1 caps, 2019 Oral, Daily, supplement biotin 300 mcg 300 mcg = 1 Active [facility] oral tablet tabs, Oral, 2018 Daily, supplement Vitamin B12 See Active I Methylcobalamin Instructions, 2019 2000 mcg oral supplement capsule Vitamin B12 See Active [facility] Methylcobalamin Instructions, 2019 2000 mcg oral supplement capsule Folic Acid 1 mg, Oral, Active 08/22/ [facility] Daily, 2019 supplement 1 ML denosumab 60 60 mg, Active [facility] MG/ML Prefilled Subcutaneous, 2019 Syringe [Prolia] q6mo, osteoporosis methotrexate 1 g 1,000 mg/m2, No Longer [facility] injection IV, Active 2019 qWednesday, crohn's infliximab 10 5 mg/kg, [...] Signs Vital Sign Value Date Comments Source Peripheral Pulse Rate 54 03/07/2020 [facility] Respitory Rate 15 03/07/2020 [facility] Systolic (mm Hg) 133 03/07/2020 [facility] Diastolic (mm Hg) 75 03/07/2020 [facility] Heart Rate 57 03/07/2020 [facility] Respitory Rate 15 03/07/2020 [facility] Systolic (mm Hg) 137 03/07/2020 [facility] Diastolic (mm Hg) 77 03/07/2020 [facility] Heart Rate 55 03/07/2020 [facility] Respitory Rate 15 03/07/2020 [facility] Systolic (mm Hg) 128 03/07/2020 [facility] Diastolic (mm Hg) 69 03/07/2020 [facility] Heart Rate 56 03/07/2020 [facility] Temperature Oral (F) 36.8 Jazmin 03/07/2020 [facility] Temperature Oral (F) 36.8 Jazmin 03/07/2020 [facility] Temperature Oral (F) 36.8 Jazmin 03/07/2020 [facility] Peripheral Pulse Rate 63 03/07/2020 [facility] Height 160.02 cm 03/07/2020 [facility] Weight Measured 58.96 03/07/2020 [facility] Height 160.02 cm 03/04/2020 [facility] Weight Measured 58.96 03/04/2020 [facility] Heart Rate 60 01/24/2019 [facility] Systolic (mm [...] Location Location Encounter Encounter Reason Attending ADM [place] Stat us Source Details Type Number For Provider Date Date Visit [facility] Outpatient [id number] [facility] Bonilla 01/24 01/24 Active [facility] Outpatient [id number] Bidhan Bonilla 01/24 01/24 [facility] [place] [facility] Outpatient [id number] Bidhan Bonilla 03/07 03/07 Discharge d Surgical /2019 [facility] Outpatient [id number] Bidhan Bonilla 03/07 03/[address] [facility] [place] [facility] Procedures Procedure Code Date Perfomer Comments Source COLONOSCOPY 03/07/2020 auto-populated [facility] FLEXIBLE; from documented DIAGNOSTIC; INCL. surgical case COLLECTION OF SPECIMENS [id number] (N/A)<sup>1</sup> Colonoscopy [id number] 06/03/2016 [facility] Anorectal abscess [id number] 06/03/2013 [facility] Colon<sup>2</sup> [id number] 06/03/2001 colon resection [facility] Colon<sup>3</sup> [id number] 06/03/1970 colon resection [facility] Appendectomy<sup>4 [id number] open procedure [facility] </sup> Umbilical hernia [id number] [facility] Assessment and Plan No Data Provided for This Section Plan of Care No Data Provided for This Section Social History Social History Date Source Social History TypeResponse 03/07/2020 [facility] Family History No Data Provided for This Section Advance Directives No Data Provided for This Section Functional Status No Data Provided for This Section
--- OUTSIDE RECORDS SUMMARY | 2020-03-09 18:46 | XMS REPORT | Continuity of Care Document ---
:1945 Author Organization [facility] t Address [address] [place] [address] Care Team Providers Name Role Phone Blakely Attending Clinician BLAKELY Attending Clinician Unavailable Blakely Admitting Clinician Problems Condition Condition Condition Status Onset Resolution Last Treating Co mments Source Name Details Category Date Date Treatment Clinician Date Crohn's Problem Active 1970-2020-03-09 Elie kia disease - 04:00:44 l (disorder) Crohn's 00:00: Her flores disease 00 (disorder) Active 06/03/1970 Problem 03/09/2020 [facility] Abdominal Problem Active 2020-03-09 Me moria pain 04:00:44 l (finding) [place] Abdominal pain (finding) Active Problem 03/09/2020 [facility] Acid Problem Active 2020-03-09 Memor ia reflux 04:00:44 l (finding) Acid [place] reflux (finding) Active Problem 03/09/2020 [facility] Anemia Problem Active 2020-03-09 Memor ia (disorder) 04:00:44 l Anemia [place] (disorder) Active Problem 03/09/2020 [facility] Anxiety Problem Active 2020-03-09 Elie kia (finding) 04:00:44 l Anxiety [place] (finding) Active Problem 03/09/2020 [facility] Swollen Problem Active 2020-03-09 Elie kia abdomen 04:00:44 l (finding) Swollen Herm eulalia abdomen (finding) Active Problem 03/09/2020 [facility] Gastroesop Problem Active 2020-03-09 M emoria hageal 04:00:44 l reflux [place] disease Gastroesop (disorder) hageal reflux disease (disorder) Active Problem 03/09/2020 [facility] Osteoporos Problem Active 2020-03-09 M emoria is 04:00:44 l (disorder) Andrew n Osteoporos is (disorder) Active Problem 03/09/2020 [facility] Rectal Problem Active 2020-03-09 Memor ia pain 04:00:44 l (finding) Rectal Janet nn pain (finding) Active Problem 03/09/2020 [facility] Crohn's Problem 2019-062020-03-09 2020-03-09 Memoria disease of 0-05 04:00:44 04:00:44 l both small Crohn's 17:00: Her flores and large disease of 00 intestine both small without and large complicati intestine ons without complicati ons 03/07/2020 03/09/2020 [facility] Crohn's Problem 2019-01-26 2019-01-26 Memoria disease of 8-24 04:00:30 04:00:30 l small Crohn's 05:00: [place] intestine disease of 00 without small complicati intestine ons without complicati ons 01/24/2019 01/26/2019 [facility] History of Past Illness Condition Condition Condition Status Onset Resolution Last Treating Co mments Source Name Details Category Date Date Treatment Clinician Date Problem Resolve 2020-03-09 2020-03-09 Memoria d - 04:00:44 04:00:44 l 00:00: [place] 2018-nCoV 00 Resolved 12/02/2019 Problem 03/09/2020 Patient and her had low grade fever and not feeling well. Called PCP and was given a place to get COVID test. Test came back positive. Patient and isolated for 14 days and became symptom free. Patient and her then received letter from [facility] they were "cleared". [facility] Methicilli Problem Inactiv 2020-03-09 2020-03-09 Memoria n-resistan e 06-03 04:00:44 04:00:44 l t 00:00: [place] staphyloco Methicilli 00 ccus n-resistan aureus t infection staphyloco (disorder) ccus aureus infection (disorder) Inactive 06/03/2010 Problem 03/09/2020 MRSA DOCUMENTED IN ERRORneck treated several times, no open wounds at present time [facility] Allergies, Adverse Reactions, Alerts Allergy Allergy Status Severity Reaction(s) Onset Inactive Treating Comm ents Source Name Type Date Date Clinician codeine codeine Active Memoria l [place] Adhesive Adhesive Active Memori a Bandage Bandage l [place] Medications Ordered Filled Start Stop Current Ordering Indication Dosage Frequency Signature Comments Components Source Medication Medication Date Date Medication? Clinician (SIG) Name Name [facility] [place] 2019-06 No 200 mL, Memoria Medication 0-05 Soln-IV, l 14:32: IV, Once, first dose 03/07/20 9:32:00 CDT, stop date 03/07/20 9:32:00 CDT propofol 2019-06 No 50 mg = 5 Elie kia 0-05 mL, l 14:20: Emulsion, [place] 00 IV, Once, first dose 03/07/20 9:20:00 CDT, stop date 03/07/20 9:20:00 CDT propofol 2019-06 No 50 mg = 5 Elie kia 0-05 mL, l 14:17: Emulsion, [place] 00 IV, Once, first dose 03/07/20 9:17:00 CDT, stop date 03/07/20 9:17:00 CDT lidocaine 2019-06 No 60 mg = 3 Mem oria 0-05 mL, l 14:14: Injection, IV, Once, first dose 03/07/20 9:14:00 CDT, stop date 03/07/20 9:14:00 CDT propofol 2019-06 No 50 mg = 5 Elie kia 0-05 mL, l 14:14: Emulsion, IV, Once, first dose 03/07/20 9:14:00 CDT, stop date 03/07/20 9:14:00 CDT LR 1,000 mL 2019-06 No 1,000 mL, M emoria 0-05 IV, 75 l 14:10: mL/hr, start date 03/07/20 9:10:00 CDT, 1.61, m2 Saline Lock 2019-06 No 10 mL, Elie kia Flush 0-05 Soln, IV l 14:10: Push, As Indicated PRN for flush, first dose 03/07/20 9:10:00 CDT potassium 2019-06 Yes Oral, Memoria bicarbonate 0-05 Daily, 0 l 12:59: Refill(s) [place] 00 Lutein 2019-06 Yes Oral, Memoria 0-05 Daily, 0 l 12:59: Refill(s) [place] 00 LR 1,000 mL 2019-06 No 1,000 mL, M emoria 0-05 IV, 30 l 12:44: mL/hr, start date 03/07/20 7:44:00 CDT, 1.61, m2 Lidocaine 2019-06 Yes 0.2 mL, Memor ia 2% 0.2 mL 0-05 Injection, l IV Start 12:44: Subcutaneo Her flores [[place]] 00 us, Once PRN for other (see comment), first dose 03/07/20 7:44:00 CDT Misc 2019-0 No 300 mL, Memoria Medication 8-24 Soln-IV, l 13:05: IV, Once, first dose 01/24/19 8:05:00 CDT, stop date 01/24/19 8:05:00 CDT propofol 2019-0 No 20 mg = 2 Elie kia 8-24 mL, l 12:46: Emulsion, IV, Once, first dose 01/24/19 7:46:00 CDT, stop date 01/24/19 7:46:00 CDT ketamine 2019-0 No 25 mg = Memori a 8-24 0.5 mL, l 12:38: Soln-IV, IV, Once, first dose 01/24/19 7:38:00 CDT, stop date 01/24/19 7:38:00 CDT midazolam 2019-0 No 0.5 mg = Elie kia 8-24 0.5 mL, l 12:34: Injection, IV, Once, first dose 01/24/19 7:34:00 CDT, stop date 01/24/19 7:34:00 CDT fentaNYL 2019-0 No 25 mcg = Memor ia 8-24 0.5 mL, l 12:34: Injection, IV, Once, first dose 01/24/19 7:34:00 CDT, stop date 01/24/19 7:34:00 CDT midazolam 2019-0 No 0.5 mg = Elie kia 8-24 0.5 mL, l 12:28: Injection, [place] IV, Once, first dose 01/24/19 7:28:00 CDT, stop date 01/24/19 7:28:00 CDT fentaNYL 2019-0 No 25 mcg = Memor ia 01-24 0.5 mL, l 12:28: Injection, [place] 00 IV, Once, first dose 01/24/19 7:28:00 CDT, stop date 01/24/19 7:28:00 CDT Lidocaine 2019-0 Yes 0.2 mL, Memor ia 2% 0.2 mL 01-24 Injection, l IV Start 11:57: Subcutaneo Her flores [[place]] 00 us, Once PRN for other (see comment), first dose 01/24/19 6:57:00 CDT LR 1,000 mL 2019-0 No 1,000 mL, M emoria 01-24 IV, 30 l 11:57: mL/hr, [place] 00 start date 01/24/19 6:57:00 CDT Calcium 2019-0 Yes 1,200 mg = Elie kia Carbonate 01-22 2 tabs, l 1500 MG 15:27: Oral, [place] Oral Tablet 00 Daily, supplement D3-5 oral Yes 5,000 Memoria capsule 01-22 IntUnit = l 15:26: 1 caps, [place] Oral, Daily, supplement biotin 300 2019-0 Yes 300 mcg = Me moria mcg oral 01-22 1 tabs, l tablet 15:25: Oral, [place] 00 Daily, supplement Vitamin B12 Yes See Memori a Methylcobal 01-22 Instructio l gipson 1999 15:24: ns, [place] mcg oral 00 supplement capsule Vitamin B12 Yes See Memori a Methylcobal 01-22 Instructio l gipson 1999 15:24: ns, [place] mcg oral 00 supplement capsule Folic Acid Yes 1 mg, Memori a 01-22 Oral, l 15:23: Daily, [place] 00 [place] 1 ML [address] Yes 60 mg, Memoria denosumab 01-22 Subcutaneo l 60 MG/ML 14:16: us, q6mo, Herm eulalia Prefilled 00 osteoporos Syringe is [Prolia] methotrexat 0 No 1,000 Memor ia e 1 g - mg/m2, IV, l injection 14:15: qWedn rm , crohn's infliximab 2019-0 Yes 5 mg/kg, Mem oria 10 MG/ML 8-22 IV, q6wk, l Injectable 14:14: crohn's Herm eulalia Solution 00 disease [Remicade] Vital Signs Vital Name Observation Time Observation Value Comments Source Respitory Rate 2020-03-07 15:37:00 Memori al [place] Systolic (mm Hg) 2020-03-07 15:37:00 Elie rial [place] Diastolic (mm Hg) 2020-03-07 15:37:00 Mem orial [place] Heart Rate 2020-03-07 15:10:00 [facility] [place] Respitory Rate 2020-03-07 15:10:00 Memori al [place] Systolic (mm Hg) 2020-03-07 15:10:00 Elie rial [place] Diastolic (mm Hg) 2020-03-07 15:10:00 Mem orial [place] Heart Rate 2020-03-07 15:00:00 [facility] [place] Respitory Rate 2020-03-07 15:00:00 Memori al [place] Systolic (mm Hg) 2020-03-07 15:00:00 Elie rial [place] Diastolic (mm Hg) 2020-03-07 15:00:00 Mem orial [place] Heart Rate 2020-03-07 14:50:00 [facility] [place] Temperature Oral (F) 2020-03-07 14:40:00 36.8 Jazmin [facility] [place] Temperature Oral (F) 2020-03-07 14:30:00 36.8 Jazmin [facility] [place] Temperature Oral (F) 2020-03-07 12:50:00 36.8 Jazmin [facility] [place] Height 2020-03-07 12:50:00 160.02 cm [facility] [place] Height 2020-03-04 17:34:00 160.02 cm [facility] [place] Heart Rate 2019-01-24 14:00:00 [facility] [place] Systolic (mm Hg) 2019-01-24 14:00:00 Elie rial [place] Diastolic (mm Hg) 2019-01-24 14:00:00 Mem orial [place] Respitory Rate 2019-01-24 14:00:00 Memori al [place] Respitory Rate 2019-01-24 13:20:00 Memori al [place] Heart Rate 2019-01-24 13:20:00 [facility] [place] Systolic (mm Hg) 2019-01-24 13:20:00 Elie rial [place] Diastolic (mm Hg) 2019-01-24 13:20:00 Mem orial [place] Respitory Rate 2019-01-24 13:10:00 Memori al [place] Heart Rate 2019-01-24 13:10:00 [facility] [place] Systolic (mm Hg) 2019-01-24 13:10:00 Elie mejia [place] Diastolic (mm Hg) 2019-01-24 13:10:00 Mem orial [place] Temperature Oral (F) 2019-01-24 13:00:00 36.4 Jazmin [facility] [place] Height 2019-01-24 12:02:00 160.02 cm [facility] [place] Temperature Oral (F) 2019-01-24 12:02:00 36.6 Jazmin [facility] [place] Height 2019-01-21 16:42:00 160.02 cm [facility] [place] Procedures Procedure Date / Time Performed Performing Clinician [facility] e COLONOSCOPY FLEXIBLE; 2020-03-07 14:17:00 Festus boyer [place] DIAGNOSTIC; INCL. COLLECTION OF SPECIMENS 07157 (N/A)<sup>1</sup> Colonoscopy 2016-06-03 06:00:00 [facility] flores Anorectal abscess 2013-06-03 06:00:00 [facility] Colon<sup>2</sup> 2001-06-03 06:00:00 [facility] Colon<sup>3</sup> 1970-06-03 06:00:00 [facility] Appendectomy<sup>4</sup> Hany l [place] Umbilical hernia [facility] Andrew n Encounters Start End Encounter Admission Attending Care Care Encounter Source Date/Time Date/Time Type Type Clinicians Facility Department ID 2020-03-07 2020-03-07 Outpatient Sneha Blakely [id number] 07:26:35 10:45:00 8 2019-05-18 [facility] UTP [id number] [facility] 09:00:00 09:00:00 t; mayte BLAKELY of [facility] ans 2019-02-12 2019-02-12 AppointSNEHA Mancera UTP UTP [id number] [facility] 15:00:00 15:00:00 t; [facility] 2019-01-24 2019-01-24 Outpatient Sneha Blakely [id number] 06:16:16 09:00:00 8 2019-01-24 2019-01-24 Appointmen SNEHA BLAKELY UTP UTP [id number] [facility] 08:30:00 08:30:00 t; BLAKELY, [facility] 2019-01-12 2019-01-12 Appointmen SNEHA BLAKELY UTP UTP [id number] [facility] 10:45:00 10:45:00 t; BLAKELY, [facility] 2018-11-06 2018-11-06 Appointmen SNEHA BLAKELY UTP UTP [id number] [facility] 11:15:00 11:15:00 t; BLAKELY, [facility] 2018-08-14 2018-08-14 Appointmen SNEHA BLAKELY UTP UTP [id number] [facility] 11:00:00 11:00:00 t; BLAKELY, [facility] 2018-05-01 2018-05-01 Appointmen SNEHA BLAKELY UTP UTP [id number] [facility] 10:45:00 10:45:00 t; BLAKELY, [facility] 2018-01-23 2018-01-23 Appointmen SNEHA BLAKELY UTP UTP [id number] [facility] 11:30:00 11:30:00 t; BLAKELY, [facility] of [facility] 2017-12-26 2017-12-26 Appointmen SNEHA BLAKELY UTP UTP [id number] [facility] 10:30:00 10:30:00 t; BLAKELY, [facility] 2017-09-26 2017-09-26 Appointmen SNEHA BLAKELY UTP UTP [id number] [facility] 10:30:00 10:30:00 t; BLAKELY, [facility] 2017-06-24 2017-06-24 Appointmen SNEHA BLAKELY UTP UTP [id number] [facility] 11:00:00 11:00:00 t; BLAKELY, [facility] 2017-05-23 2017-05-23 Appointmen SNEHA BLAKELY UTP UTP [id number] [facility] 11:00:00 11:00:00 t; BLAKELY, [facility] 2017-05-16 2017-05-16 Appointmen SNEHA BLAKELY UTP UTP [id number] [facility] 14:30:00 14:30:00 t; BLAKELY, [facility] Results This patient has no known results.
== END 2020-03-04 11:17 | disposition home or self-care (01) ==
LOC: DS 08:04
PROVIDERS: ATTEND Internal Medicine Gastroenterology
DX: K50.911 Crohn's disease, unspecified, with rectal bleeding (principal)
CPT/HCPCS: 96365; 96366; J7050; Q5103

== ENCOUNTER 2020-04-15 08:46 | Day surgery (SDC) | payer OTHER ==
--- OUTSIDE RECORDS SUMMARY | 2020-04-15 09:29 | XMS REPORT | Summary of Care ---
:1945 Author Organization [facility] Address [address] [place] [address] Encounter FIN [facility] [id number] Date(s): 03/07/20 - 03/07/20 [facility] [address] [place] [address]- Encounter Diagnosis Crohn's disease of both small and large intestine without complications (Discharge Diagnosis) - 03/07/20 Discharge Disposition: Discharged to Home or Self Care Attending Physician: Sneha Bonilla MD Admitting Physician: Sneha Bonilla MD Vital Signs Most recent to oldest 1 2 3 [Reference Range]: Temperature Oral [35.8-37.3 36.8 DegC DegC] (03/07/20 7:50 AM) Temperature Temporal Artery 36.8 DegC 36.8 DegC [36.3-37.8 DegC] (03/07/20 9:40 AM) (03/07/20 9:30 AM) Temperature Temporal 98.24 98.24 Fahrenheit (03/07/20 9:40 AM) (03/07/20 9:30 AM) Peripheral Pulse Rate 54 bpm 63 bpm [55-105 bpm] *LOW* (03/07/20 7:50 AM) (03/07/20 10:37 AM) Heart Rate Monitored [60-100 57 bpm 55 bpm 56 bpm bpm] *LOW* *LOW* *LOW* (03/07/20 10:10 AM) (03/07/20 10:00 AM) (03/07/20 9 :50 AM) Respiratory Rate [12-20] 15 15 15 (03/07/20 10:37 AM) (03/07/20 10:10 AM) (03/07/20 1 0:00 AM) SpO2 [90-100 %] 96 % 97 % 100 % (03/07/20 10:37 AM) (03/07/20 10:10 AM) (03/07/20 1 0:00 AM) Blood Pressure 133/75 mmHg 137/77 mmHg 128/69 mmHg [110-120/65-85 mmHg] *HI* *HI* *HI* (03/07/20 10:37 AM) (03/07/20 10:10 AM) (03/07/20 1 0:00 AM) Mean Arterial Pressure, Cuff 97 mmHg 88.7 mmHg 87. 7 mmHg (03/07/20 10:10 AM) (03/07/20 10:00 AM) (03/07/20 9 :50 AM) Activity Level - SpO2 With activity With activity At rest (03/07/20 10:10 AM) (03/07/20 10:00 AM) (03/07/20 9 :50 AM) Height 160.02 cm 160.02 cm (03/07/20 7:50 AM) (03/04/20 12:34 PM) Height/Length Dosing 160.02 cm 160.02 cm (03/07/20 7:50 AM) (03/04/20 12:34 PM) Height Inches 63 in 63 in (03/07/20 7:50 AM) (03/04/20 12:34 PM) Weight 58.96 kg 58.96 kg (03/07/20 7:50 AM) (03/04/20 12:34 PM) Weight Dosing 58.96 kg 58.96 kg (03/07/20 7:50 AM) (03/04/20 12:34 PM) Weight Pounds 130 lb 130 lb (03/07/20 7:50 AM) (03/04/20 12:34 PM) Body Mass Index 23.03 kg/m2 23.03 kg/m2 (03/07/20 7:50 AM) (03/04/20 12:34 PM) Problem List Condition Effective Dates Status Health Status Informant 2019 novel coronavirus(Confirmed)1 12/2019 - 01/2020 Resolved Abdominal pain(Confirmed) Active Acid reflux(Confirmed) Active Anemia(Confirmed) Active Anxiety(Confirmed) Active Bloating(Confirmed) Active Crohn's disease(Confirmed) 06/03/70 Active GERD - Gastro-esophageal reflux Active disease(Confirmed) MRSA (Methicillin resistant 06/03/10 Inactive Staphylococcus aureus) infection(Confirmed)2, 3 Osteoporosis(Confirmed) Active Rectal pain(Confirmed) Active 1Patient and her had low grade fever and not feeling well. Called PCP and was given a place to get COVID test. Test came back positive. Patient and isolated for 14 days and became symptom free. Patient and her then received letter from [facility] they were "cleared".2[facility]SA DOCUMENTED IN ERROR3 neck treated several times, no open wounds at present time Allergies, Adverse Reactions, Alerts Substance Reaction Severity Status codeine severe GI upset Active Adhesive Bandage rash Active skin tears Medications biotin 300 mcg oral tablet 300 mcg = 1 tabs, Oral, Daily, supplement Start Date: 01/22/19 Stop Date: 02/05/19 Status: Orderedcalcium (as carbonate) 600 mg oral tablet 1,200 mg = 2 tabs, Oral, Daily, supplement Start Date: 01/22/19 Stop Date: 02/05/19 Status: OrderedD3-5 oral capsule 5,000 IntUnit = 1 caps, Oral, Daily, supplement Start Date: 01/22/19 Stop Date: 02/05/19 Status: Orderedfolic acid 1 mg, Oral, Daily, supplement Start Date: 01/22/19 Stop Date: 02/05/19 Status: Orderedlidocaine 60 mg = 3 mL, Injection, IV, Once, first dose 03/07/20 9:14:00 CDT, stop date 03/07/20 9:14:00 CDT Start Date: 03/07/20 Stop Date: 03/07/20 Status: CompletedLidocaine 2% 0.2 mL IV Start [[place]] 0.2 mL, Injection, Subcutaneous, Once PRN for other (see comment), first dose 03/07/20 7:44:00 CDT Start Date: 03/07/20 Stop Date: 03/07/20 Status: DeletedLR 1,000 mL 1,000 mL, IV, 30 mL/hr, start date 03/07/20 7:44:00 CDT, 1.61, m2 Start Date: 03/07/20 Stop Date: 03/07/20 Status: DiscontinuedLR 1,000 mL 1,000 mL, IV, 75 mL/hr, start date 03/07/20 9:10:00 CDT, 1.61, m2 Start Date: 03/07/20 Stop Date: 03/07/20 Status: Discontinuedlutein Oral, Daily, 0 Refill(s) Start Date: 03/07/20 Stop Date: 03/21/20 Status: Orderedmethotrexate 1 g injection 1,000 mg/m2, IV, qWednesday, crohn's Start Date: 01/22/19 Stop Date: 03/07/20 Status: DiscontinuedMisc Medication 200 mL, Soln-IV, IV, Once, first dose 03/07/20 9:32:00 CDT, stop date 03/07/20 9:32:00 CDT Start Date: 03/07/20 Stop Date: 03/07/20 Status: Completedpotassium bicarbonate Oral, Daily, 0 Refill(s) Start Date: 03/07/20 Stop Date: 03/21/20 Status: OrderedProlia 60 mg/mL subcutaneous solution 60 mg, Subcutaneous, q6mo, osteoporosis Start Date: 01/22/19 Stop Date: 02/05/19 Status: Orderedpropofol 50 mg = 5 mL, Emulsion, IV, Once, first dose 03/07/20 9:14:00 CDT, stop date 03/07/20 9:14:00 CDT Start Date: 03/07/20 Stop Date: 03/07/20 Status: Completedpropofol 50 mg = 5 mL, Emulsion, IV, Once, first dose 03/07/20 9:17:00 CDT, stop date 03/07/20 9:17:00 CDT Start Date: 03/07/20 Stop Date: 03/07/20 Status: Completedpropofol 50 mg = 5 mL, Emulsion, IV, Once, first dose 03/07/20 9:20:00 CDT, stop date 03/07/20 9:20:00 CDT Start Date: 03/07/20 Stop Date: 03/07/20 Status: CompletedRemicade 100 mg intravenous injection 5 mg/kg, IV, q6wk, crohn's disease Start Date: 01/22/19 Stop Date: 02/05/19 Status: OrderedSaline Lock Flush 10 mL, Soln, IV Push, As Indicated PRN for flush, first dose 03/07/20 9:10:00 CDT Start Date: 03/07/20 Stop Date: 03/07/20 Status: DiscontinuedVitamin B12 Methylcobalamin 2000 mcg oral capsule See Instructions, supplement Start Date: 01/22/19 Status: Ordered Results No data available for this section Immunizations No data available for this section Procedures Procedure Date Related Diagnosis Body Site Status COLONOSCOPY FLEXIBLE; DIAGNOSTIC; INCL. 03/07/20 Completed COLLECTION OF SPECIMENS 67008 (N/A)1 1auto-populated from documented surgical case Social History Social History Type Response Assessment and Plan No data available for this section
--- OUTSIDE RECORDS SUMMARY | 2020-04-15 09:29 | XMS REPORT | Continuity of Care Document ---
:1945 Author Organization [facility] t Address [address] [place] [address] Care Team Providers Name Role Phone Blakely [...] Memor ia reflux 04:00:44 l (finding) Acid [place] reflux (finding) Active Problem 03/09/2020 [facility] Anemia Problem Active 2020-03-09 Memor ia (disorder) 04:00:44 l Anemia [place] (disorder) Active Problem 03/09/2020 [facility] Anxiety Problem Active 2020-03-09 Elie kia (finding) 04:00:44 l Anxiety [place] (finding) Active Problem 03/09/2020 [facility] Swollen Problem Active 2020-03-09 Elie kia abdomen 04:00:44 l (finding) Swollen Herm eulalia abdomen (finding) Active Problem 03/09/2020 [facility] Gastroesop Problem Active 2020-03-09 M emoria hageal 04:00:44 l reflux [place] disease Gastroesop (disorder) hageal reflux disease (disorder) [...] Memoria d - 04:00:44 04:00:44 l 00:00: [place] 2018-nCoV 00 Resolved 12/02/2019 Problem 03/09/2020 Patient and her had low grade fever and not feeling well. Called PCP and was given a place to get COVID test. Test came back positive. Patient and isolated for 14 days and became symptom free. Patient and her then received letter from [facility] they were "cleared". [facility] Methicilli Problem Inactiv 2020-03-09 2020-03-09 Memoria n-resistan e 06-03 04:00:44 04:00:44 l t 00:00: [place] staphyloco Methicilli 00 ccus n-resistan aureus t infection staphyloco (disorder) ccus aureus infection (disorder) Inactive 06/03/2010 Problem 03/09/2020 MRSA DOCUMENTED IN ERRORneck treated several times, no open wounds at present time [facility] Allergies, Adverse Reactions, Alerts Allergy Allergy Status Severity Reaction(s) Onset Inactive Treating Comm ents Source Name Type Date Date Clinician codeine codeine Active Memoria l [place] Adhesive Adhesive Active Memori a Bandage Bandage l [place] Medications Ordered Filled Start Stop Current Ordering Indication Dosage Frequency Signature Comments Components Source Medication Medication Date Date Medication? Clinician (SIG) Name Name [facility] 2019-06 No 200 mL, Memoria Medication 0-05 Soln-IV, l 14:32: IV, Once, first dose 03/07/20 9:32:00 CDT, stop date 03/07/20 9:32:00 CDT propofol 2019-06 No 50 mg = 5 Elie kia 0-05 mL, l 14:20: Emulsion, [place] 00 IV, Once, first dose 03/07/20 9:20:00 CDT, stop date 03/07/20 9:20:00 CDT propofol 2019-06 No 50 mg = 5 Elie kia 0-05 mL, l 14:17: Emulsion, [place] 00 IV, Once, first dose 03/07/20 9:17:00 [...] bicarbonate 0-05 Daily, 0 l 12:59: Refill(s) [place] 00 Lutein 2019-06 Yes Oral, Memoria 0-05 Daily, 0 l 12:59: Refill(s) [place] 00 LR 1,000 mL 2019-06 No 1,000 [...] kia 8-24 0.5 mL, l 12:28: Injection, [place] IV, Once, first dose 01/24/19 7:28:00 CDT, stop date 01/24/19 7:28:00 CDT fentaNYL 2019-0 No 25 mcg = Memor ia 01-24 0.5 mL, l 12:28: Injection, [place] 00 IV, Once, first dose 01/24/19 7:28:00 CDT, stop date 01/24/19 7:28:00 CDT Lidocaine 2019-0 Yes 0.2 mL, Memor ia 2% 0.2 mL 01-24 Injection, l IV Start 11:57: Subcutaneo Her flores [[place]] 00 us, Once PRN for other (see comment), first dose 01/24/19 6:57:00 CDT LR 1,000 mL 2019-0 No 1,000 mL, M emoria 01-24 IV, 30 l 11:57: mL/hr, [place] 00 start date 01/24/19 6:57:00 CDT Calcium 2019-0 Yes 1,200 mg = Elie kia Carbonate 01-22 2 tabs, l 1500 MG 15:27: Oral, [place] Oral Tablet 00 Daily, supplement D3-5 oral Yes 5,000 Memoria capsule 01-22 IntUnit = l 15:26: 1 caps, [place] Oral, Daily, supplement biotin 300 2019-0 Yes 300 mcg = Me moria mcg oral 01-22 1 tabs, l tablet 15:25: Oral, [place] 00 Daily, supplement Vitamin B12 Yes See Memori a Methylcobal 01-22 Instructio l gipson 1999 15:24: ns, [place] mcg oral 00 supplement capsule Vitamin B12 [...] Source Respitory Rate 2020-03-07 15:37:00 Memori al [place] Systolic (mm Hg) 2020-03-07 15:37:00 Elie rial [place] Diastolic (mm Hg) 2020-03-07 15:37:00 Mem orial [place] Heart Rate 2020-03-07 15:10:00 Memorial [place] Respitory Rate 2020-03-07 15:10:00 Memori al [place] Systolic (mm Hg) 2020-03-07 15:10:00 Elie rial [place] Diastolic (mm Hg) 2020-03-07 15:10:00 Mem orial [place] Heart Rate 2020-03-07 15:00:00 Memorial [place] Respitory Rate 2020-03-07 15:00:00 Memori al [place] Systolic (mm Hg) 2020-03-07 15:00:00 Elie rial [place] Diastolic (mm Hg) 2020-03-07 15:00:00 Mem orial [place] Heart Rate 2020-03-07 14:50:00 Memorial [place] Temperature Oral (F) 2020-03-07 14:40:00 36.8 Jazmin [facility] [place] Temperature Oral (F) 2020-03-07 14:30:00 36.8 Jazmin [facility] [place] Temperature Oral (F) 2020-03-07 12:50:00 36.8 Jazmin [facility] [place] Height 2020-03-07 12:50:00 160.02 cm [facility] [place] Height 2020-03-04 17:34:00 160.02 cm [facility] [place] Heart Rate 2019-01-24 14:00:00 [facility] [place] Systolic (mm Hg) 2019-01-24 14:00:00 Elie rial [place] Diastolic (mm Hg) 2019-01-24 14:00:00 Mem orial [place] Respitory Rate 2019-01-24 14:00:00 Memori al [place] Respitory Rate 2019-01-24 13:20:00 Memori al [place] Heart Rate 2019-01-24 13:20:00 [facility] [place] Systolic (mm Hg) 2019-01-24 13:20:00 Elie rial [place] Diastolic (mm Hg) 2019-01-24 13:20:00 Mem orial [place] Respitory Rate 2019-01-24 13:10:00 Memori al [place] Heart Rate 2019-01-24 13:10:00 [facility] [place] Systolic (mm Hg) 2019-01-24 13:10:00 Elie mejia [place] Diastolic (mm Hg) 2019-01-24 13:10:00 Mem orial [place] Temperature Oral (F) 2019-01-24 13:00:00 36.4 Jazmin [facility] [place] Height 2019-01-24 12:02:00 160.02 cm [facility] [place] Temperature Oral (F) 2019-01-24 12:02:00 36.6 Jazmin [facility] [place] Height 2019-01-21 16:42:00 160.02 cm [facility] [place] Procedures Procedure Date / Time Performed Performing Clinician [facility] e COLONOSCOPY FLEXIBLE; 2020-03-07 14:17:00 Festus boyer [place] DIAGNOSTIC; INCL. COLLECTION OF SPECIMENS 42413 (N/A)<sup>1</sup> Colonoscopy 2016-06-03 06:00:00 [facility] flores Anorectal abscess 2013-06-03 06:00:00 [facility] Colon<sup>2</sup> 2001-06-03 06:00:00 [facility] Colon<sup>3</sup> 1970-06-03 06:00:00 [facility] Appendectomy<sup>4</sup> Hany l [place] Umbilical hernia [facility] Encounters Start End Encounter Admission Attending Care Care Encounter Source Date/Time Date/Time Type Type Clinicians Facility Department ID 2020-03-07 2020-03-07 Outpatient Sneha Blakely [id number] 07:26:35 10:45:00 8 2019-05-18 [facility] UTP [id number] Univers 09:00:00 09:00:00 t; mayte BLAKELY of [facility] ans 2019-02-12 2019-02-12 AppointSNEHA Mancera UTP UTP [id number] [facility] 15:00:00 15:00:00 [facility] 2019-01-24 2019-01-24 Outpatient Sneha Blakely [id number] 06:16:16 09:00:00 8 2019-01-24 2019-01-24 Appointmen SNEHA BLAKELY UTP UTP [id number] Univers 08:30:00 08:30:00 t; BLAKELY, [facility]y of [facility] [place] [facility] 2019-01-12 2019-01-12 Appointmen SNEHA BLAKELY UTP UTP [id number] Univers 10:45:00 10:45:00 t; BLAKELY, ity of [facility] [place] [facility] 2018-11-06 2018-11-06 Appointmen SNEHA BLAKELY UTP UTP [id number] Univers 11:15:00 11:15:00 t; BLAKELY, ity of [facility] [place] [facility] 2018-08-14 2018-08-14 Appointmen SNEHA BLAKELY UTP UTP [id number] Univers 11:00:00 11:00:00 t; BLAKELY, ity of [facility] [place] [facility] 2018-05-01 2018-05-01 Appointmen SNEHA BLAKELY UTP UTP [id number] Univers 10:45:00 10:45:00 t; BLAKELY, ity of [facility] [place] [facility] 2018-01-23 2018-01-23 Appointmen SNEHA BLAKELY UTP UTP [id number] Univers 11:30:00 11:30:00 t; BLAKELY, ity of [facility] [place] [facility] 2017-12-26 2017-12-26 Appointmen SNEHA BLAKELY UTP UTP [id number] Univers 10:30:00 10:30:00 t; BLAKELY, ity of [facility] [place] [facility] 2017-09-26 2017-09-26 Appointmen SNEHA BLAKELY UTP UTP [id number] Univers 10:30:00 10:30:00 t; BLAKELY, ity of [facility] [place] [facility] 2017-06-24 2017-06-24 Appointmen SNEHA BLAKELY UTP UTP [id number] Univers 11:00:00 11:00:00 t; BLAKELY, ity of [facility] [place] [facility] 2017-05-23 2017-05-23 Appointmen SNEHA BLAKELY UTP UTP [id number] Univers 11:00:00 11:00:00 t; BLAKELY, ity of [facility] [place] [facility] 2017-05-16 2017-05-16 Appointmen SNEHA BLAKELY UTP UTP [id number] Univers 14:30:00 14:30:00 t; BLAKELY, ity of [facility] [place] [facility] Results This patient has no known results.
--- OUTSIDE RECORDS SUMMARY | 2020-04-15 09:29 | XMS REPORT | Continuity of Care Document ---
:1945 Author Organization [employer] Care Team Providers Name Role Phone [employer] Unavailable Un available Problems Problem Status Onset [...] Patient and her then received letter from [facility] they were "cleared". Crohn's disease of 01/25/20 01/26/2019 [facility] small intestine 19 without complications Methicillin-resista Inactive 06/03/19 Problem 03/09/2020 MRSA DOCUMENTED IN ERROR [facility] nt staphylococcus 11 neck tr eated several times, no open wounds at present time aureus infection (disorder) Crohn's disease Active 06/03/18 Problem 03/09/2020 [facility] HOME I (disorder) 71 Abdominal pain Active Problem 03/09/2020 [facility] (finding) Acid reflux Active Problem 03/09/2020 [facility] (finding) Anemia (disorder) Active Problem 03/09/2020 [facility] Anxiety (finding) Active Problem 03/09/2020 [facility] Swollen abdomen Active Problem 03/09/2020 [facility]URSING HOME I (finding) Gastroesophageal Active Problem 03/09/2020 US [...] 10/05/ [facility] mL IV Start Injection, 2019 [[facility]] Subcutaneous, Once PRN for other (see [...] Inactive [facility] mL IV Start Injection, 2018 [[facility]] Subcutaneous, Once PRN for other (see [...] Location Location Encounter Encounter Reason Attending ADM ME Stat us Source Details Type Number For Provider Date Date Visit [facility] Outpatient [id number] Bidhan Bonilla 01/24 01/24 Active [facility] Outpatient [id number] Bidhan Bonilla 01/24 01/24 [facility] [place] [facility] Outpatient [id number] Bidhan Bonilla 03/07 03/07 Active [facility] [id number] 03/07 [facility] [place] [facility] Procedures Procedure Code Date Perfomer Comments Source COLONOSCOPY 03/07/2020 auto-populated [facility] FLEXIBLE; from documented DIAGNOSTIC; INCL. surgical case COLLECTION OF SPECIMENS 44933 (N/A)<sup>1</sup> Colonoscopy [id number] 06/03/2016 [facility] Anorectal abscess [id number] 06/03/2013 [facility] Colon<sup>2</sup> [id number] 06/03/2001 colon resection [facility] Colon<sup>3</sup> [id number] 06/03/1970 colon resection [facility] Appendectomy<sup>4 [id number] open procedure [facility] </sup> Umbilical hernia [id number] [facility] Assessment and Plan No Data Provided for This Section Plan of Care No Data Provided for This Section Social History Social History Date Source Social History TypeResponse 03/07/2020 [facility] Family History No Data Provided for This Section Advance Directives No Data Provided for This Section Functional Status No Data Provided for This Section
[2020-04-15] MEDS ORDERED: NA CHLORIDE 0.9% IV SCH (09:30)
[2020-04-15] MEDS ORDERED: INFLIXIMAB DYYB IV SCH (09:30)
[2020-04-15] MEDS ORDERED: NA CHLORIDE 0.9% 250 ML ONE (09:35)
[2020-04-15 14:35] VITALS: BMI 23.7
[2020-04-15 14:40] VITALS: O2SAT 96
[2020-04-15 14:41] VITALS: BP 110/59; TEMP 97.3
== END 2020-04-15 12:17 | disposition home or self-care (01) ==
LOC: DS 08:46
PROVIDERS: ATTEND Internal Medicine Gastroenterology
DX: K50.911 Crohn's disease, unspecified, with rectal bleeding (principal)
CPT/HCPCS: 96365; 96366; Q5103; J7050 ×2

== ENCOUNTER 2020-06-14 07:23 | Day surgery (SDC) | payer OTHER ==
--- OUTSIDE RECORDS SUMMARY | 2020-06-14 07:28 | XMS REPORT | Continuity of Care Document ---
:1945 Author Organization [employer] Care Team Providers Name Role Phone [employer] Unavailable Un available Problems Problem Status Onset [...] Patient and her then received letter from [facility] they were "cleared". Crohn's disease of 01/25/20 01/26/2019 [facility] small intestine 19 without complications Methicillin-resista Inactive 06/03/19 Problem 03/09/2020 MRSA DOCUMENTED IN ERROR [facility] nt staphylococcus 11 neck tr eated several times, no open wounds at present time aureus infection (disorder) Crohn's disease Active 06/03/18 Problem 03/09/2020 [facility] I (disorder) 71 Abdominal pain Active Problem 03/09/2020 [facility] (finding) Acid reflux Active Problem 03/09/2020 [facility] (finding) Anemia (disorder) Active Problem 03/09/2020 [facility] Anxiety (finding) Active Problem 03/09/2020 [facility] Swollen abdomen Active Problem 03/09/2020 [facility] I (finding) Gastroesophageal Active Problem 03/09/2020 US [...] lidocaine 60 mg = 3 mL, Inactive 10/05/ [facility] Injection, IV, 2019 Once, first dose 03/07/20 9:14:00 CDT, stop date 03/07/20 9:14:00 CDT propofol 50 mg = 5 mL, Inactive // [facility] Emulsion, IV, 2019 Once, first dose 03/07/20 9:14:00 CDT, stop date 03/07/20 9:14:00 CDT LR 1,000 mL 1,000 mL, IV, Inactive 10// [facility] 75 mL/hr, 2019 start date 03/07/20 9:10:00 CDT, 1.61, m2 Saline Lock Flush 10 mL, Soln, Inactive 03/07/ [facility] IV Push, As 2020 Indicated PRN for flush, first dose 03/07/20 9:10:00 CDT potassium Oral, Daily, 0 Active 10/05/ [facility] bicarbonate Refill(s) 2019 Lutein Oral, Daily, 0 Active 10/05/ [facility] Refill(s) 2019 LR 1,000 mL 1,000 mL, IV, Inactive 10/05/ [facility] 30 mL/hr, 2019 start date 03/07/20 7:44:00 CDT, 1.61, m2 Lidocaine 2% 0.2 0.2 mL, Inactive 10/05/ [facility] mL IV Start Injection, 2019 [[facility]] Subcutaneous, Once PRN for other (see [...] Inactive [facility] mL IV Start Injection, 2018 [[facility]] Subcutaneous, Once PRN for other (see [...] 2018 Daily, supplement Vitamin B12 See Active [facility] Methylcobalamin Instructions, 2019 2000 mcg oral supplement capsule Vitamin B12 See Active [facility] Methylcobalamin Instructions, 2019 2000 mcg oral supplement capsule Folic Acid 1 mg, Oral, Active 08/22/ [facility] Daily, 2019 supplement 1 ML denosumab 60 60 mg, Active 01/22/ [facility] MG/ML Prefilled Subcutaneous, 2019 Syringe [Prolia] [...] Type Number For Provider Date Date Visit [id number] 01/24 Active [facility] Outpatient [id number] Bidhan Bonilla 01/24 01/24 [facility] [place] [facility] [id number] 03/07 03/07 Active [facility] [id number] 03/07 03/07 [facility] Procedures Procedure Code Date Perfomer Comments Source COLONOSCOPY 03/07/2020 auto-populated [facility] FLEXIBLE; from documented DIAGNOSTIC; INCL. surgical case COLLECTION OF SPECIMENS 00039 (N/A)<sup>1</sup> Colonoscopy [id number] 06/03/2016 [facility] Anorectal abscess [id number] 06/03/2013 [facility] Colon<sup>2</sup> [id number] 06/03/2001 colon resection [facility] Colon<sup>3</sup> [id number] 06/03/1970 colon resection [facility] Appendectomy<sup>4 [id number] open procedure [facility] </sup> Umbilical hernia [id number] [facility] Assessment and Plan No Data Provided for This Section Plan of Care No Data Provided for This Section Social History Social History Date Source Social History TypeResponse 03/07/2020 [facility] Family History No Data Provided for This Section Advance Directives No Data Provided for This Section Functional Status No Data Provided for This Section
--- OUTSIDE RECORDS SUMMARY | 2020-06-14 07:28 | XMS REPORT | Continuity of Care Document ---
:1945 Author Organization [facility] t Address [address] [place] [address] Care Team Providers Name Role Phone Blakely [...] Memor ia reflux 04:00:44 l (finding) Acid [place] reflux (finding) Active Problem 03/09/2020 [facility] Anemia Problem Active 2020-03-09 Memor ia (disorder) 04:00:44 l Anemia [place] (disorder) Active Problem 03/09/2020 [facility] Anxiety Problem [...] Date Problem Resolve 2020-03-09 2020-03-09 Memoria d 7- 04:00:44 04:00:44 l 00:00: [place] 00 Resolved 12/02/2019 Problem 03/09/2020 Patient and her had low grade fever and not feeling well. Called PCP and was given a place to get COVID test. Test came back positive. Patient and isolated for 14 days and became symptom free. Patient and her then received letter from [facility] they were "cleared". [facility] Methicilli Problem Inactiv 2020-03-09 2020-03-09 Memoria n-resistan e 06-03 04:00:44 04:00:44 l t 00:00: [place] staphyloco Methicilli 00 [...] Date Date Medication? Clinician (SIG) Name Name [facility] 2019-06 No 200 mL, Memoria Medication 0-05 [...] Elie kia 0-05 mL, l 14:17: Emulsion, [place] 00 IV, Once, first dose 03/07/20 9:17:00 [...] bicarbonate 0-05 Daily, 0 l 12:59: Refill(s) [place] 00 Lutein 2019-06 Yes Oral, Memoria 0-05 Daily, 0 l 12:59: Refill(s) [place] 00 LR 1,000 mL No 1,000 mL, M emoria 0-05 IV, 30 l 12:44: mL/hr, start date 03/07/20 7:44:00 CDT, 1.61, m2 Lidocaine 2019-06 Yes 0.2 mL, Memor ia 2% 0.2 mL 0-05 Injection, l IV Start 12:44: Subcut[facility]o [facility] 00 us, Once PRN for other (see [...] kia 8-24 0.5 mL, l 12:28: Injection, IV, Once, first dose 01/24/19 7:28:00 CDT, stop date 01/24/19 7:28:00 CDT fentaNYL 2019-0 No 25 mcg = Memor ia 01-24 0.5 mL, l 12:28: Injection, [place] IV, Once, first dose 01/24/19 7:28:00 CDT, stop date 01/24/19 7:28:00 CDT Lidocaine 2019-0 Yes 0.2 mL, Memor ia 2% 0.2 mL 01-24 Injection, l IV Start 11:57: [facility], Once PRN for other (see comment), first dose 01/24/19 6:57:00 CDT LR 1,000 mL 2019-0 No 1,000 mL, M emoria 01-24 IV, 30 l 11:57: mL/hr, [place] 00 start date 01/24/19 6:57:00 CDT Calcium 2019-0 Yes 1,200 mg = Elie kia Carbonate 01-22 2 tabs, l 1500 MG 15:27: Oral, [place] Oral Tablet 00 Daily, supplement D3-5 oral Yes 5,000 Memoria capsule 01-22 IntUnit = l 15:26: 1 caps, [place] Oral, Daily, supplement biotin 300 2018-0 Yes 300 mcg = Me moria mcg oral 01-22 1 tabs, l tablet 15:25: Oral, [place] Daily, supplement Vitamin B12 Yes See Memori a Methylcobal 01-22 Instructio l gipson 1999 15:24: ns, [place] mcg oral 00 supplement capsule Vitamin B12 Yes See Memori a Methylcobal 01-22 Instructio l gipson 1999 15:24: ns, [place] mcg oral 00 supplement capsule Folic Acid Yes 1 mg, Memori a 01-22 Oral, l 15:23: Daily, [place] 00 supplement 1 ML [address] Yes 60 mg, Memoria denosumab 01-22 Subcutaneo l 60 MG/ML 14:16: us, q6mo, Herm eulalia Prefilled 00 osteoporos Syringe is [Prolia] methotrexat 0 No 1,000 Memor ia e 1 g - mg/m2, IV, l injection 14:15: qWednes rm , crohn's infliximab 2019-0 Yes 5 mg/kg, Mem oria 10 MG/ML 8-22 IV, q6wk, l Injectable 14:14: crohn's Herm eulalia Solution 00 disease [Remicade] Vital Signs Vital Name Observation Time Observation Value Comments Source Respitory Rate 2020-03-07 15:37:00 Memori al [place] Systolic (mm Hg) 2020-03-07 15:37:00 Elie rial [place] Diastolic (mm Hg) 2020-03-07 15:37:00 Mem orial [place] Heart Rate 2020-03-07 15:10:00 [facility] [place] Respitory Rate 2020-03-07 15:10:00 Memori al [place] Systolic (mm Hg) 2020-03-07 15:10:00 Elie rial [place] Diastolic (mm Hg) 2020-03-07 15:10:00 Mem orial [place] Heart Rate 2020-03-07 15:00:00 [facility] [place] Respitory Rate 2020-03-07 15:00:00 Memori al [place] Systolic (mm Hg) 2020-03-07 15:00:00 Elie rial [place] Diastolic (mm Hg) 2020-03-07 15:00:00 Mem orial [place] Heart Rate 2020-03-07 14:50:00 [facility] [place] Temperature Oral (F) 2020-03-07 14:40:00 36.8 Jazmin [facility] [place] Temperature Oral (F) 2020-03-07 14:30:00 36.8 Jazmin [facility] [place] Temperature Oral (F) 2020-03-07 12:50:00 36.8 Jazmin [facility] [place] Height 2020-03-07 12:50:00 160.02 cm [facility] [place] Height 2020-03-04 17:34:00 160.02 cm [facility] [place] Heart Rate 2019-01-24 14:00:00 [facility] [place] Systolic (mm Hg) 2019-01-24 14:00:00 Elie rial [place] Diastolic (mm Hg) 2019-01-24 14:00:00 Mem orial [place] Respitory Rate 2019-01-24 14:00:00 Memori al [place] Respitory Rate 2019-01-24 13:20:00 Memori al [place] Heart Rate 2019-01-24 13:20:00 [facility] [place] Systolic (mm Hg) 2019-01-24 13:20:00 Elie rial [place] Diastolic (mm Hg) 2019-01-24 13:20:00 Mem orial [place] Respitory Rate 2019-01-24 13:10:00 Memori al [place] Heart Rate 2019-01-24 13:10:00 [facility] [place] Systolic (mm Hg) 2019-01-24 13:10:00 Elie mejia [place] Diastolic (mm Hg) 2019-01-24 13:10:00 Mem orial [place] Temperature Oral (F) 2019-01-24 13:00:00 36.4 Jazmin [facility] [place] Height 2019-01-24 12:02:00 160.02 cm [facility] [place] Temperature Oral (F) 2019-01-24 12:02:00 36.6 Jazmin [facility] [place] Height 2019-01-21 16:42:00 160.02 cm [facility] [place] Procedures Procedure Date / Time Performed Performing Clinician [facility] e COLONOSCOPY FLEXIBLE; 2020-03-07 14:17:00 Festus al [place] DIAGNOSTIC; INCL. COLLECTION OF SPECIMENS 80025 (N/A)<sup>1</sup> Colonoscopy 2016-06-03 06:00:00 [facility] flores Anorectal abscess 2013-06-03 06:00:00 [facility] Colon<sup>2</sup> 2001-06-03 06:00:00 [facility] Colon<sup>3</sup> 1970-06-03 06:00:00 [facility] Appendectomy<sup>4</sup> Hany l [place] Umbilical hernia [facility] Encounters Start End Encounter Admission Attending Care Care Encounter Source Date/Time Date/Time Type Type Clinicians Facility Department ID 2020-03-07 2020-03-07 Outpatient Sneha Blakely [id number] 07:26:35 10:45:00 8 2019-05-18 [facility] UTP UTP [id number] Univers 09:00:00 09:00:00 t; mayte BLAKELY of [facility] ans 2019-02-12 2019-02-12 AppointSNEHA Mancera UTP UTP [id number] [facility] 15:00:00 15:00:00 t; mayte BLAKELY of [facility] 2019-01-24 2019-01-24 Outpatient Sneha Blakely [id number] 06:16:16 09:00:00 8 2019-01-24 2019-01-24 Appointmen SNEHA BLAKELY UTP UTP [id number] Univers 08:30:00 08:30:00 t; BLAKELY, [facility] [place] [facility] 2019-01-12 2019-01-12 Appointmen SNEHA BLAKELY UTP UTP [id number] Univers 10:45:00 10:45:00 t; BLAKELY, [facility] [place] [facility] 2018-11-06 2018-11-06 Appointmen SNEHA BLAKELY UTP UTP [id number] Univers 11:15:00 11:15:00 t; BLAKELY, [facility] [place] [facility] 2018-08-14 2018-08-14 Appointmen SNEHA BLAKELY UTP UTP [id number] Univers 11:00:00 11:00:00 t; BLAKELY, [facility] [place] [facility] 2018-05-01 2018-05-01 Appointmen SNEHA BLAKELY UTP UTP [id number] Univers 10:45:00 10:45:00 t; BLAKELY, [facility] [place] [facility] 2018-01-23 2018-01-23 Appointmen SNEHA BLAKELY UTP UTP [id number] Univers 11:30:00 11:30:00 t; BLAKELY, [facility] [place] [facility] 2017-12-26 2017-12-26 Appointmen SNEHA BLAKELY UTP UTP [id number] Univers 10:30:00 10:30:00 t; BLAKELY, [facility] [place] [facility] 2017-09-26 2017-09-26 Appointmen SNEHA BLAKELY UTP UTP [id number] Univers 10:30:00 10:30:00 t; BLAKELY, ity of [facility] [place] [facility] 2017-06-24 2017-06-24 Appointmen SNEHA BLAKELY UTP UTP [id number] Univers 11:00:00 11:00:00 t; BLAKELY, ity of [facility] [place] [facility] 2017-05-23 2017-05-23 Appointmen SNEHA BLAKELY UTP UTP [id number] Univers 11:00:00 11:00:00 t; BLAKELY, [facility] [place] [facility] 2017-05-16 2017-05-16 Appointmen SNEHA BLAKELY UTP UTP [id number] Univers 14:30:00 14:30:00 t; BLAKELY, ity of [facility] [place] [facility] Results This patient has no known results.
[2020-06-14] MEDS ORDERED: INFLIXIMAB DYYB IV ONE (08:00)
[2020-06-14] MEDS ORDERED: NA CHLORIDE 0.9% IV ONE (08:00)
[2020-06-14] MEDS ORDERED: NA CHLORIDE 0.9% 500 ML ONE (08:06)
[2020-06-14 08:40] VITALS: BMI 23.0
[2020-06-14 10:15] VITALS: O2SAT 97
[2020-06-14 10:52] VITALS: BP 120/67; TEMP 98.2
== END 2020-06-14 10:57 | disposition home health service (06) ==
LOC: DS 07:23
PROVIDERS: ATTEND Internal Medicine Gastroenterology
DX: K50.911 Crohn's disease, unspecified, with rectal bleeding (principal)
CPT/HCPCS: 96365; 96366; Q5103; J7050; J7040

== ENCOUNTER 2020-07-25 09:03 | Day surgery (SDC) | payer OTHER ==
[2020-07-25] MEDS ORDERED: INFLIXIMAB DYYB IV ONE (09:30)
[2020-07-25] MEDS ORDERED: NA CHLORIDE 0.9% IV ONE (09:30)
[2020-07-25] MEDS ORDERED: NA CHLORIDE 0.9% 250 ML ONE (09:50)
[2020-07-25 10:16] VITALS: BMI 22.6
[2020-07-25 10:56] VITALS: O2SAT 98
[2020-07-25 11:49] VITALS: BP 110/69; TEMP 97.1
== END 2020-07-25 12:05 | disposition home or self-care (01) ==
LOC: DS 09:03
PROVIDERS: ATTEND Internal Medicine Gastroenterology
DX: K50.911 Crohn's disease, unspecified, with rectal bleeding (principal)
CPT/HCPCS: 96365; 96366; Q5103; J7050 ×2

== ENCOUNTER 2020-09-05 08:08 | Day surgery (SDC) | payer OTHER ==
[2020-09-05] MEDS ORDERED: LIDOCAINE 1% MPF 30 ML VIAL ONE (08:37)
[2020-09-05 09:00] VITALS: BMI 22.1
[2020-09-05] MEDS ORDERED: INFLIXIMAB-DYYB 400 MG in NA CHLORIDE 0.9% 210 ML IV ONE (09:00)
[2020-09-05] MEDS ORDERED: INFLIXIMAB DYYB IV ONE (09:00)
[2020-09-05] MEDS ORDERED: NA CHLORIDE 0.9% IV ONE (09:00)
[2020-09-05 13:14] VITALS: TEMP 97.6
[2020-09-05 13:16] VITALS: BP 115/64; O2SAT 97
== END 2020-09-05 11:19 | disposition home or self-care (01) ==
LOC: DS 08:08
PROVIDERS: ATTEND Internal Medicine Gastroenterology
DX: K50.911 Crohn's disease, unspecified, with rectal bleeding (principal)
CPT/HCPCS: 96365; 96366; Q5103; J7050

== ENCOUNTER 2020-10-17 08:04 | Day surgery (SDC) | payer OTHER ==
[2020-10-17] MEDS ORDERED: NA CHLORIDE 0.9% IV ONE (08:30)
[2020-10-17] MEDS ORDERED: INFLIXIMAB DYYB IV ONE (08:30)
[2020-10-17] MEDS ORDERED: ACETAMINOPHEN 325 MG TABLET ONE (08:37)
[2020-10-17] MEDS ORDERED: DIPHENHYDRAMINE 25 MG TAB/CAP ONE (08:38)
[2020-10-17] MEDS ORDERED: NA CHLORIDE 0.9% 250 ML ONE (08:55)
[2020-10-17 14:39] VITALS: BMI 23.7
[2020-10-17 14:45] VITALS: TEMP 97.8
[2020-10-17 14:47] VITALS: BP 118/66; O2SAT 99
== END 2020-10-17 11:17 | disposition home health service (06) ==
LOC: DS 08:04
PROVIDERS: ATTEND Internal Medicine Gastroenterology
DX: K50.911 Crohn's disease, unspecified, with rectal bleeding (principal)
CPT/HCPCS: 96365; 96366; Q5103; J7050 ×2

== ENCOUNTER 2020-11-30 08:33 | Day surgery (SDC) | payer OTHER ==
[2020-11-30 08:57] VITALS: BMI 22.8
[2020-11-30] MEDS ORDERED: NA CHLORIDE 0.9% IV ONE (09:00)
[2020-11-30] MEDS ORDERED: NA CHLORIDE 0.9% 250 ML ONE (09:00)
[2020-11-30] MEDS ORDERED: INFLIXIMAB DYYB IV ONE (09:00)
[2020-11-30 12:48] VITALS: BP 135/78; TEMP 96.7; O2SAT 97
== END 2020-11-30 11:47 | disposition home or self-care (01) ==
LOC: DS 08:33
PROVIDERS: ATTEND Internal Medicine Gastroenterology
DX: K50.911 Crohn's disease, unspecified, with rectal bleeding (principal)
CPT/HCPCS: 96365; 96366; Q5103; J7050 ×2

== ENCOUNTER 2020-12-09 03:32 | Emergency (ER) | payer OTHER ==
--- OUTSIDE RECORDS SUMMARY | 2020-12-09 03:35 | XMS REPORT | Continuity of Care Document ---
:[address] [facility] t Address [address] [place] [address] Care Team Providers Name Role Phone Blakely Attending Clinician BLAKELY Attending Clinician Unavailable Blakely Admitting Clinician Problems Condition Condition Condition Status Onset Resolution Last Treating Co mments Source Name Details Category Date Date Treatment Clinician Date Crohn's Problem Active 1970-2020-03-09 Elie kia disease 06-03 04:00:44 l (disorder) Crohn's 00:00: Her flores disease 00 (disorder) Active 06/03/1970 Problem 03/09/2020 [facility] Rectal Problem Active 2020-03-09 Memor ia pain 04:00:44 l (finding) Rectal Janet nn pain (finding) Active Problem 03/09/2020 [facility] Abdominal Problem Active 2020-03-09 Me moria pain 04:00:44 l (finding) Carriere Abdominal pain (finding) Active Problem 03/09/2020 [facility] Acid Problem Active 2020-03-09 Memor ia reflux 04:00:44 l (finding) Acid Carriere reflux (finding) Active Problem 03/09/2020 [facility] Anemia Problem Active 2020-03-09 Memor ia (disorder) 04:00:44 l Anemia [place] (disorder) Active Problem 03/09/2020 [facility] Anxiety Problem Active 2020-03-09 Elie kia (finding) 04:00:44 l Anxiety Carriere (finding) Active Problem 03/09/2020 [facility] Swollen Problem Active 2020-03-09 Elie kia abdomen 04:00:44 l (finding) Swollen Herm eulalia abdomen (finding) Active Problem 03/09/2020 [facility] Gastroesop Problem Active 2020-03-09 M emoria hageal 04:00:44 l reflux [place] disease Gastroesop (disorder) hageal reflux disease (disorder) Active Problem 03/09/2020 [facility] Osteoporos Problem Active 2020-03-09 Felicity almazana is 04:00:44 l (disorder) Andrew peterson Osteoporos is (disorder) Active Problem 03/09/2020 [facility] 2019-nCoV Problem Resolve 2020-03-09 2020-03-09 Memoria d 12-01 04:00:44 04:00:44 l 00:00: Carriere 2018-nCoV 00 Resolved 12/02/2019 Problem 03/09/2020 Patient and her had low grade fever and not feeling well. Called PCP and was given a place to get COVID test. Test came back positive. Patient and isolated for 14 days and became symptom free. Patient and her then received letter from [facility] they were "cleared". [facility] History of Past Illness Condition Condition Condition Status Onset Resolution Last Treating Co mments Source Name Details Category Date Date Treatment Clinician Date Crohn's Problem 2019-062020-03-09 2020-03-09 Memoria disease of 0-05 04:00:44 04:00:44 l both small Crohn's 17:00: Her flores and large disease of 00 intestine both small without and large complicati intestine ons without complicati ons 03/07/2020 03/09/2020 [facility] Methicilli Problem Inactiv 2020-03-09 2020-03-09 Memoria n-resistan e 1 04:00:44 04:00:44 l t 00:00: [place] staphyloco Methicilli 00 ccus n-resistan aureus t infection staphyloco (disorder) ccus aureus infection (disorder) Inactive 06/03/2010 Problem 03/09/2020 MRSA DOCUMENTED IN ERRORneck treated several times, no open wounds at present time [facility] Crohn's Problem 2019-01-26 2019-01-26 Memoria disease of 8-24 04:00:30 04:00:30 l small Crohn's 05:00: [place] intestine disease of 00 without small complicati intestine ons without complicati ons 01/24/2019 01/26/2019 [facility] Allergies, Adverse Reactions, Alerts Allergy Allergy Status Severity Reaction(s) Onset Inactive Treating Comm ents Source Name Type Date Date Clinician codeine codeine Active Memoria l Carriere Adhesive Adhesive Active Memori a Bandage Bandage l [place] Medications Ordered Filled Start Stop Current Ordering Indication Dosage Frequency Signature Comments Components Source Medication Medication Date Date Medication? Clinician (SIG) Name Name [facility] 2019-06 No 200 mL, Memoria Medication 0-05 Soln-IV, l 14:32: IV, Once, first dose 03/07/20 9:32:00 CDT, stop date 03/07/20 9:32:00 CDT propofol 2019-06 No 50 mg = 5 Elie kia 0-05 mL, l 14:20: Emulsion, Carriere 00 IV, Once, first dose 03/07/20 9:20:00 CDT, stop date 03/07/20 9:20:00 CDT propofol 2019-06 No 50 mg = 5 Elie kia 0-05 mL, l 14:17: Emulsion, Carriere 00 IV, Once, first dose 03/07/20 9:17:00 [...] bicarbonate 0-05 Daily, 0 l 12:59: Refill(s) Carriere 00 Lutein 2019-06 Yes Oral, Memoria 0-05 Daily, 0 l 12:59: Refill(s) Carriere 00 LR 1,000 mL 2019-06 No 1,000 mL, M emoria 0-05 IV, 30 l 12:44: mL/hr, [place] 00 start date 03/07/20 7:44:00 CDT, 1.61, m2 [...] ia 8-24 0.5 mL, l 12:34: Injection, [place]ap[place] IV, Once, first dose 01/24/19 7:34:00 CDT, stop date 01/24/19 7:34:00 CDT midazolam 2019-0 No 0.5 mg = Elie kia 8-24 0.5 mL, l 12:28: Injection, Carriere 00 IV, Once, first dose 01/24/19 7:28:00 CDT, stop date 01/24/19 7:28:00 CDT fentaNYL 2019-0 No 25 mcg = Memor ia 01-24 0.5 mL, l 12:28: Injection, IV, Once, [...] 01-22 1 tabs, l tablet 15:25: Oral, [place] 00 Daily, supplement Vitamin B12 Yes See Memori a Methylcobal 01-22 Instructio l gipson 1999 15:24: ns, Carriere mcg oral 00 supplement capsule Vitamin B12 Yes See Memori a Methylcobal 01-22 Instructio l gipson 1999 15:24: ns, Agap[place] mcg oral supplement capsule Folic Acid Yes 1 mg, [...] Source Respitory Rate 2020-03-07 15:37:00 Memori al Carrie[place] Systolic (mm Hg) 2020-03-07 15:37:00 Elie rial [place] Diastolic (mm Hg) 2020-03-07 15:37:00 Mem orial Carrie[place] Heart Rate 2020-03-07 15:10:00 [facility] [place] Respitory Rate 2020-03-07 15:10:00 Memori al [place] Systolic (mm Hg) 2020-03-07 15:10:00 Elie rial Carrie[place] Diastolic (mm Hg) 2020-03-07 15:10:00 Mem orial [place] Heart Rate 2020-03-07 15:00:00 [facility] [place] Respitory Rate 2020-03-07 15:00:00 Memori al [place] Systolic (mm Hg) 2020-03-07 15:00:00 Elie rial [place] Diastolic (mm Hg) 2020-03-07 15:00:00 Mem orial [place] Heart Rate 2020-03-07 14:50:00 [facility] [place] Temperature Oral (F) 2020-03-07 14:40:00 36.8 Jazmin [facility] [place] Temperature Oral (F) 2020-03-07 14:30:00 36.8 Jazmin [facility] [place] Temperature Oral (F) 2020-03-07 12:50:00 36.8 Jazmin [facility] [place] Height 2020-03-07 12:50:00 160.02 cm [facility] [place] Height 2020-03-04 17:34:00 160.02 cm [facility] [place] Heart Rate 2019-01-24 14:00:00 [facility] [place] Systolic (mm Hg) 2019-01-24 14:00:00 Elie rial [place] Diastolic (mm Hg) 2019-01-24 14:00:00 Mem orial [place] Respitory Rate 2019-01-24 14:00:00 Memori al [place] Respitory Rate 2019-01-24 13:20:00 Memori al [place] Heart Rate 2019-01-24 13:20:00 [facility] [place] Systolic (mm Hg) 2019-01-24 13:20:00 Elie rial [place] Diastolic (mm Hg) 2019-01-24 13:20:00 Mem orial [place] Respitory Rate 2019-01-24 13:10:00 Memori al [place] Heart Rate 2019-01-24 13:10:00 [facility] [place] Systolic (mm Hg) 2019-01-24 13:10:00 Elie adaml Carrie[place] Diastolic (mm Hg) 2019-01-24 13:10:00 Mem orial [place] Temperature Oral (F) 2019-01-24 13:00:00 36.4 Jazmin [facility] [place] Height 2019-01-24 12:02:00 160.02 cm [facility] [place] Temperature Oral (F) 2019-01-24 12:02:00 36.6 Jazmin [facility] [place] Height 2019-01-21 16:42:00 160.02 cm [facility] [place] Procedures Procedure Date / Time Performed Performing Clinician [facility] e COLONOSCOPY FLEXIBLE; 2020-03-07 14:17:00 Jesusmadelyn boyer Carriere DIAGNOSTIC; INCL. COLLECTION OF SPECIMENS 46056 (N/A)<sup>1</sup> Colonoscopy 2016-06-03 06:00:00 [facility] flores Anorectal abscess 2013-06-03 06:00:00 [facility] Colon<sup>2</sup> 2001-06-03 06:00:00 [facility] Colon<sup>3</sup> 1970-06-03 06:00:00 [facility] Appendectomy<sup>4</sup> Hany l [place] Umbilical hernia [facility] n Encounters Start End Encounter Admission Attending Care Care Encounter Source Date/Time Date/Time Type Type Clinicians Facility Department ID 2020-03-07 2020-03-07 Outpatient Sneha Blakely [id number] 07:26:35 10:45:00 8 2019-05-18 [facility] BLAKELY UTP UTP [id number] [facility] 09:00:00 09:00:00 t; mayte BLAKELY of [facility] ans 2019-02-12 2019-02-12 AppointSNEHA Mancera UTP UTP [id number] [facility] 15:00:00 15:00:00 t; [facility] 2019-01-24 2019-01-24 Outpatient Sneha Blakely [id number] 06:16:16 09:00:00 8 2019-01-24 2019-01-24 Appointmen SNEHA BLAKELY UTP UTP [id number] [facility] 08:30:00 08:30:00 t; BLAKELY, [facility] 2019-01-12 2019-01-12 Appointmen SNEHA BLAKELY UTP UTP [id number] [facility] 10:45:00 10:45:00 t; BLAKELY, [facility] 2018-11-06 2018-11-06 Appointmen SNEHA BLAKELY UTP UTP [id number] [facility] 11:15:00 11:15:00 t; BLAKELY, [facility] of [facility] 2018-08-14 2018-08-14 Appointmen SNEHA BLAKELY UTP UTP [id number] [facility] 11:00:00 11:00:00 t; BLAKELY, [facility] of [facility] 2018-05-01 2018-05-01 Appointmen SNEHA BLAKELY UTP UTP [id number] [facility] 10:45:00 10:45:00 t; BLAKELY, [facility] of [facility] 2018-01-23 2018-01-23 Appointmen SNEHA BLAKELY UTP UTP [id number] [facility] 11:30:00 11:30:00 t; BLAKELY, [facility]y of [facility] 2017-12-26 2017-12-26 Appointmen SNEHA BLAKELY UTP UTP [id number] [facility] 10:30:00 10:30:00 t; BLAKELY, [facility] of [facility] 2017-09-26 2017-09-26 Appointmen SNEHA BLAKELY UTP UTP [id number] [facility] 10:30:00 10:30:00 t; BLAKELY, [facility] of [facility] 2017-06-24 2017-06-24 Appointmen SNEHA BLAKELY UTP UTP [id number] [facility] 11:00:00 11:00:00 t; BLAKELY, [facility] of [facility] 2017-05-23 2017-05-23 Appointmen SNEHA BLAKELY UTP UTP [id number] [facility] 11:00:00 11:00:00 t; BLAKELY, [facility]y of [facility] 2017-05-16 2017-05-16 Appointmen REDDY, SNEHA UTP UTP [id number] [facility] 14:30:00 14:30:00 t; BLAKELY, [facility] Results This patient has no known results.
[2020-12-09 04:26] LABS: Absolute Lymphocytes (CBC) 2.8 K/uL (0.7-4.9); Basophils % 0.7 % (0-1.3); Lymphocytes % 24.3 % (15.3-44.8); MPV 9.4 fL (7.6-11.3); Protime INR 1.03; RBC Red Blood Cell Count 4.28 M/uL (3.86-4.86)
[2020-12-09] MEDS ORDERED: MORPHINE 2 MG/ML SYR ONE ×2 (04:42→07:50)
[2020-12-09] MEDS ORDERED: METRONIDAZOLE 500mg IVPB 500 MG/100 ML BAG IV ONE (04:43)
[2020-12-09] MEDS ORDERED: ONDANSETRON 4 MG/2 ML VIAL ONE (04:43)
[2020-12-09] MEDS ORDERED: NA CHLORIDE 0.9% 1,000 ML ONE (04:43)
[2020-12-09] MEDS ORDERED: CIPROFLOXACIN 400mg IV 400 MG/200 ML BAG IV ONE (04:43)
[2020-12-09] MEDS ORDERED: FAMOTIDINE 20 MG/2 ML VIAL IV ONE (04:43)
[2020-12-09 04:50] LABS: ALT/SGPT 18 U/L (12-78); AST/SGOT 24 U/L (15-37); Albumin 3.3 g/dL (3.4-5.0); Alkaline Phosphatase 41 U/L (45-117); BUN Blood Urea Nitrogen 17 mg/dL (7-18); Bicarbonate 27 mmol/L (21-32); Bilirubin Direct 0.4 mg/dL (0-0.2); Bilirubin Total 1.6 mg/dL (0.2-1.0); Glucose Level 99 mg/dL (74-106); Lipase 112 U/L (73-393); Magnesium 2.1 mg/dL (1.8-2.4); NT PRO-BNP 130 pg/mL (<450); Potassium 3.9 mmol/L (3.5-5.1); Protein, Total 8.2 g/dL (6.4-8.2); Sodium Level 138 mmol/L (136-145); Troponin (Emerg Dept Use Only) < 0.02 ng/mL (0.0-0.045)
--- NOTE | 2020-12-09 05:18 | EDPHYS ---
Physician Documentation [facility] Name: Jv Sepulveda Age: 75 yrs Sex: Female : 1945 Arrival Date: 12/09/2020 Time: 03:34 Bed 4 Private MD: Chanel Pollard C ED Physician Maycol Pearson HPI: 12/09 04:01 This 75 yrs old Female presents to ER via Ambulatory with complaints of lucita Abdominal Pain. 04:01 The patient presents with abdominal pain in the upper abdomen, in the lower abdomen, lucita abdominal distention in the upper abdomen, in the lower abdomen. Onset: The symptoms/episode began/occurred 2 day(s) ago. The symptoms do not radiate. Associated signs and symptoms: Pertinent positives: nausea and vomiting. The symptoms are described as constant, crampy. Modifying factors: The symptoms are alleviated by nothing, the symptoms are aggravated by nothing. Severity of pain: At its worst the pain was moderate in the emergency department the pain is unchanged. The patient has not experienced similar symptoms in the past. Historical: - Allergies: 03:42 Codeine; em 03:42 Oxycodone; em 03:42 Vicodin; em - Home Meds: 04:50 biotin 10,000 mcg Oral cap daily [Active]; calcium citrate 630 mg Oral gran daily ak2 [Active]; folic acid 800 mcg Oral tab 1 tab once daily [Active]; lutein 20 mg Oral tab daily [Active]; methotrexate sodium (PF) 1 gram injection solr once wkly [Active]; Premarin 25 mg injection solr [Active]; Remicade 100 mg intravenous solr every 6 wks [Active]; Slow Fe 45 mg Oral daily [Active]; Vitamin B-12 500 mcg Oral lozg daily [Active]; Vitamin D 2000 IU Oral daily [Active]; - PMHx: 03:42 chrons disease; em - Immunization history:: Adult Immunizations up to date. - Social history:: Smoking status: Patient denies any tobacco usage or history of. - Family history:: not pertinent. ROS: 04:01 Constitutional: Negative for fever, chills, and weight loss, Eyes: Negative for injury, lucita pain, redness, and discharge, ENT: Negative for injury, pain, and discharge, Neck: Negative for injury, pain, and swelling, Cardiovascular: Negative for chest pain, palpitations, and edema, Respiratory: Negative for shortness of breath, cough, wheezing, and pleuritic chest pain, Back: Negative for injury and pain, : Negative for injury, bleeding, discharge, and swelling, MS/Extremity: Negative for injury and deformity, Skin: Negative for injury, rash, and discoloration, Neuro: Negative for headache, weakness, numbness, tingling, and seizure, Psych: Negative for depression, anxiety, suicide ideation, homicidal ideation, and hallucinations, Allergy/Immunology: Negative for hives, rash, and allergies, Endocrine: Negative for neck swelling, polydipsia, polyuria, polyphagia, and marked weight changes. 04:01 Abdomen/GI: Positive for abdominal pain, nausea and vomiting, of the right upper quadrant, left upper quadrant, right lower quadrant and left lower quadrant. Exam: 04:01 Constitutional: This is a well developed, well nourished patient who is awake, alert, lucita and in no acute distress. Head/Face: Normocephalic, atraumatic. Eyes: Pupils equal round and reactive to light, extra-ocular motions intact. Lids and lashes normal. Conjunctiva and sclera are non-icteric and not injected. Cornea within normal limits. Periorbital areas with no swelling, redness, or edema. ENT: Nares patent. No nasal discharge, no septal abnormalities noted. Tympanic membranes are normal and external auditory canals are clear. Oropharynx with no redness, swelling, or masses, exudates, or evidence of obstruction, uvula midline. Mucous membranes moist. Neck: Trachea midline, no thyromegaly or masses palpated, and no cervical lymphadenopathy. Supple, full range of motion without nuchal rigidity, or vertebral point tenderness. No Meningismus. Chest/axilla: Normal chest wall appearance and motion. Nontender with no deformity. No lesions are appreciated. Cardiovascular: Regular rate and rhythm with a normal S1 and S2. No gallops, murmurs, or rubs. Normal PMI, no JVD. No pulse deficits. Respiratory: Lungs have equal breath sounds bilaterally, clear to auscultation and percussion. No rales, rhonchi or wheezes noted. No increased work of breathing, no retractions or nasal flaring. Back: No spinal tenderness. No costovertebral tenderness. Full range of motion. Female : Normal external genitalia. Skin: Warm, dry with normal turgor. Normal color with no rashes, no lesions, and no evidence of cellulitis. MS/ Extremity: Pulses equal, no cyanosis. Neurovascular intact. Full, normal range of motion. Neuro: Awake and alert, GCS 15, oriented to person, place, time, and situation. Cranial nerves II-XII grossly intact. Motor strength 5/5 in all extremities. Sensory grossly intact. Cerebellar exam normal. Normal gait. Psych: Awake, alert, with orientation to person, place and time. Behavior, mood, and affect are within normal limits. 04:01 Abdomen/GI: Inspection: distension, that is mild, Bowel sounds: active, hyperactive, Palpation: mild abdominal tenderness, moderate abdominal tenderness, in the right upper quadrant, left upper quadrant, right lower quadrant and left lower quadrant, Liver: no appreciated palpable abnormalities, Hernia: not appreciated. 04:42 ECG was reviewed by the Attending Physician. [facility] Vital Signs: 03:41 BP 137 / 87; Pulse 83; Resp 18; Temp 97.5; Pulse Ox 99% on R/A; Weight 57.61 kg; Height em 5 ft. 3 in. (160.02 cm); Pain 7/10; 04:49 BP 126 / 74; Pulse 79; Resp 16; Pulse Ox 98% on R/A; ak2 06:16 BP 119 / 68; Pulse 68; Resp 16; Pulse Ox 98% on R/A; ak2 07:39 BP 139 / 68; Pulse 64; Resp 18; Pulse Ox 98% on R/A; tw2 03:41 Body Mass Index 22.50 (57.61 kg, 160.02 cm) em MDM: 03:48 Patient medically screened. [facility] 04:03 Differential diagnosis: diverticulitis, gastritis, Irritable bowel syndrome, Mesenteric lucita ischemia or infarction, non-specific abd pain, pancreatitis, Peptic Ulcer Disease, Peritonitis, Pyelonephritis, urinary tract infection. Data reviewed: vital signs, nurses notes, lab test result(s), EKG, radiologic studies, CT scan, plain films. Data interpreted: equipment monitor phototypesetting: rate is 57 beats/min, rhythm is regular, Pulse oximetry: on room air is 99 %. Test interpretation: by ED physician or midlevel provider: ECG, plain radiologic studies. Counseling: I had a detailed discussion with the patient and/or guardian regarding: the historical points, exam findings, and any diagnostic results supporting the discharge/admit diagnosis, lab results, radiology results, the need for further work-up and treatment in the hospital. 12/09 03:55 Order name: Basic Metabolic Panel [facility] 12/09 03:55 Order name: CBC with Diff [facility] 12/09 03:55 Order name: LFT's [facility] 12/09 03:55 Order name: Magnesium [facility] 12/09 03:55 Order name: NT PRO-BNP [facility] 12/09 03:55 Order name: PT-INR; Complete Time: 04:44 [facility] 12/09 03:55 Order name: Troponin (emerg Dept Use Only); Complete Time: 05:15 [facility] 12/09 03:55 Order name: Lipase; Complete Time: 05:15 [facility] 12/09 03:55 Order name: Urine Culture [facility] 12/09 03:55 Order name: Basic Metabolic Panel; Complete Time: 05:15 [facility] 12/09 03:55 Order name: CBC with Automated Diff; Complete Time: 04:44 [facility] 12/09 03:55 Order name: Liver (Hepatic) Function; Complete Time: 05:15 [facility] 12/09 03:55 Order name: Magnesium; Complete Time: 05:15 [facility] 12/09 03:55 Order name: NT PRO-BNP; Complete Time: 05:15 [facility] 12/09 03:55 Order name: XRAY Chest (1 view) [facility] 12/09 03:55 Order name: CT Abd/Pelvis - IV Contrast Only [facility] 12/09 04:00 Order name: COVID-19 : Document "Date of Symptom Onset" if Symptomatic. [facility] 12/09 04:06 Order name: Lactate [facility] 12/09 04:08 Order name: Lactate; Complete Time: 05:15 [facility] 12/09 07:03 Order name: CREATININE WHOLE BLOOD [facility] 12/09 03:55 Order name: EKG; Complete Time: 03:56 [facility] 12/09 03:55 Order name: Cardiac monitoring; Complete Time: 04:23 [facility] 12/09 03:55 Order name: EKG - Nurse/Tech; Complete Time: 04:23 [facility] 12/09 03:55 Order name: IV Saline Lock; Complete Time: 05:55 [facility] 12/09 03:55 Order name: Labs collected and sent; Complete Time: 05:56 [facility] 12/09 03:55 Order name: O2 Per Protocol; Complete Time: 05:56 [facility] 12/09 03:55 Order name: O2 Sat Monitoring; Complete Time: 04:23 [facility] 12/09 03:55 Order name: Urine Dipstick-Ancillary (obtain specimen); Complete Time: 05:56 [facility] EC:42 Rate is 74 beats/min. Rhythm is regular. QRS [place] is Normal. MT interval is normal. QRS lucita interval is normal. QT interval is normal. No Q waves. T waves are Inverted in leads V3, V4, V5, V6. No ST changes noted. Clinical impression: Abnormal EKG without significant change. Interpreted by me. Reviewed by me. Administered Medications: 04:05 Not Given (Duplicate Order): [place] (HYDROcodone-acetaminophen) (7.5 mg-325 mg) 1 tabs lucita PO once; RASS on ADMIN: Combtv4, Very Agttd3, Agttd2, Rstlss1, AlertClm0, Drwsy-1, Lt Sdtn-2, Mod Sdtn-3, Dp Sdtn-4, UnArsble-5 04:05 CANCELLED (Duplicate Order): Ketorolac 30 mg IVP once [facility] 04:25 Drug: NS 0.9% 1000 ml Route: IV; Rate: 125 ml/hr; Site: right antecubital; ak2 09:05 Follow up: IV Status: Infusion continued upon transfer tw2 04:26 Drug: morphine 2 mg Route: IVP; Site: left antecubital; ak2 04:26 Drug: Zofran (Ondansetron) 4 mg Route: IVP; Site: left antecubital; ak2 04:26 Drug: Pepcid (famotidine) 20 mg Route: IVP; Site: right antecubital; ak2 04:26 Drug: NS 0.9% 1000 ml Route: IV; Rate: 1 bolus; Site: right antecubital; ak2 04:46 Drug: Cipro (ciprofloxacin) 400 mg Volume: 200 ml; Route: IVPB; Infused Over: 60 mins; ak2 Site: left antecubital; 05:24 Drug: Flagyl (metroNIDAZOLE) 500 mg Volume: 100 ml; Route: IVPB; Rate: 200 ml/hr; ak2 Infused Over: 30 mins; Site: left antecubital; 07:30 Drug: morphine 2 mg {Note: RASS 0.} Route: IVP; Site: left antecubital; tw2 09:07 Follow up: Response: No adverse reaction; Pain is decreased tw2 Disposition Summary: 12/09/20 05:17 Transfer Ordered Transfer Location: [facility] lucita Reason: Higher level of care lucita Condition: Stable lucita Problem: new lucita Symptoms: have improved lucita Accepting Physician: to [facility], gi and surgery(12/09/20 09:09) tw2 Diagnosis - Crohn's disease of small intestine with intestinal obstruction lucita - Vomiting lucita - Abdominal tenderness lucita Forms: - Medication Reconciliation Form lucita - SBAR form lucita Signatures: Dispatcher [employer] EDMaycol Rangel MD MD cha Munoz, Edgar RN Lorena Gamez RN RN tw2 Huy Rodríguez RN RN 8 Bret Reyna ri2 Corrections: (The following items were deleted from the chart) 04:05 04:02 Ketorolac 30 mg IVP once ordered. svetlana [facility] 09:09 05:17 to [facility], gi and surgery [facility]
--- NOTE | 2020-12-09 05:18 | ER ---
Nurse's Notes [facility] Name: Jv Sepulveda Age: 75 yrs Sex: Female : 1945 Arrival Date: 12/09/2020 Time: 03:34 Bed 4 Private MD: Chanel Pollard C Diagnosis: Crohn's disease of small intestine with intestinal obstruction;Vomiting;Abdominal tenderness Presentation: 12/09 03:41 Chief complaint: Patient states: lower quad. pain for 2 nights, hx of bowel em obstruction, reports N/V, denies fever or diarrhea. Coronavirus screen: Client denies travel out of the [place] in the last 14 days. Ebola Screen: Patient negative for fever greater than or equal to 101.5 degrees Fahrenheit, and additional compatible Ebola Virus Disease symptoms Patient denies exposure to infectious person. Patient denies travel to an Ebola-affected area in the 21 days before illness onset. No symptoms or risks identified at this time. Initial Sepsis Screen: Does the patient meet any 2 criteria? No. Patient's initial sepsis screen is negative. Does the patient have a suspected source of infection? No. Patient's initial sepsis screen is negative. Risk Assessment: Do you want to hurt yourself or someone else? Patient reports no desire to harm self or others. Onset of symptoms was December 09, 2020. 03:41 Method Of Arrival: Ambulatory em 03:41 Acuity: MAGED 3 em Triage Assessment: 04:49 General: Behavior is calm, cooperative. ak2 Historical: - Allergies: 03:42 Codeine; em 03:42 Oxycodone; em 03:42 Vicodin; em - Home Meds: 04:50 biotin 10,000 mcg Oral cap daily [Active]; calcium citrate 630 mg Oral gran daily ak2 [Active]; folic acid 800 mcg Oral tab 1 tab once daily [Active]; lutein 20 mg Oral tab daily [Active]; methotrexate sodium (PF) 1 gram injection solr once wkly [Active]; Premarin 25 mg injection solr [Active]; Remicade 100 mg intravenous solr every 6 wks [Active]; Slow Fe 45 mg Oral daily [Active]; Vitamin B-12 500 mcg Oral lozg daily [Active]; Vitamin D 2000 IU Oral daily [Active]; - PMHx: 03:42 chrons disease; em - Immunization history:: Adult Immunizations up to date. - Social history:: Smoking status: Patient denies any tobacco usage or history of. - Family history:: not pertinent. Screenin:49 Abuse screen: Denies threats or abuse. Denies injuries from another. Nutritional ak2 screening: No deficits noted. Tuberculosis screening: No symptoms or risk factors identified. Fall Risk None identified. Assessment: 04:48 Pain: Denies pain. Pain: Complains of pain in abdomen. GI: Bowel sounds present X 4 ak2 quads. Abd is soft Abd is non tender. 04:48 General: Appears in no apparent distress. Neuro: No deficits noted. Cardiovascular: No ak2 deficits noted. Respiratory: No deficits noted. 04:49 Reassessment: Patient and/or family updated on plan of care and expected duration. Pain ak2 level reassessed. 06:16 Reassessment: Patient and/or family updated on plan of care and expected duration. Pain ak2 level reassessed. 07:06 Reassessment: Patient and/or family updated on plan of care and expected duration. Pain tw2 level reassessed. pts spouse came to nurses station reporting pt needed to use the restroom, pt NAD, pt disconnected from monitoring system and IV fluids, pt ambulates steadily to restroom at this time. 07:30 Reassessment: No changes from previously documented assessment. Patient and/or family tw2 updated on plan of care and expected duration. Pain level reassessed. Patient is alert, oriented x 3, equal unlabored respirations, skin warm/dry/pink. pt returned from restroom, connected to monitoring system and iv fluids, pt c/o pain "9/10", provider notified, medicated as ordered. 09:08 Reassessment: No changes from previously documented assessment. Patient and/or family tw2 updated on plan of care and expected duration. Pain level reassessed. Patient is alert, oriented x 3, equal unlabored respirations, skin warm/dry/pink. Vital Signs: 03:41 BP 137 / 87; Pulse 83; Resp 18; Temp 97.5; Pulse Ox 99% on R/A; Weight 57.61 kg; Height em 5 ft. 3 in. (160.02 cm); Pain 7/10; 04:49 BP 126 / 74; Pulse 79; Resp 16; Pulse Ox 98% on R/A; ak2 06:16 BP 119 / 68; Pulse 68; Resp 16; Pulse Ox 98% on R/A; ak2 07:39 BP 139 / 68; Pulse 64; Resp 18; Pulse Ox 98% on R/A; tw2 03:41 Body Mass Index 22.50 (57.61 kg, 160.02 cm) em ED Course: 03:34 Patient arrived in ED. es 03:35 Chanel Pollard MD is Private Physician. es 03:42 Triage completed. em 03:42 Arm band placed on. em 03:44 Bret Reyna is Primary Nurse. ak2 03:48 Maycol Pearson MD is Attending Physician. lucita 04:30 CT Abd/Pelvis - IV Contrast Only In Process Unspecified. EDMS 04:31 XRAY Chest (1 view) In Process Unspecified. EDMS 04:49 Patient has correct armband on for positive identification. ak2 04:49 No provider procedures requiring assistance completed. Inserted saline lock: 20 gauge ak2 in right antecubital area, using aseptic technique. 05:13 Initiated transfer at [facility] with Vanessa Ross. Stated she would do a bed check tt3 and call back. 05:29 Vanessa called back and stated that [facility] was at capacity but [facility] had a bed tt3 available. Verified with pt that it was okay to proceed with the transfer, then stated that the pt has a surgeon in [facility] already. Per 's request, Dr. Sneha Bonilla was paged. Currently waiting for a call from Dr. Bonilla. Dr. Pearson was informed. 06:[address] Pearson, I called [facility] back. Informed Vanessa that the pts surgeon has tt3 not returned our call and to proceed with the transfer request. 06:35 Vanessa Ross called back with the phsyician from the [facility] to talk to Dr. anton Pearson for consultation. 06:47 Vanessa Khanson gave admin approval. The pt is going to [facility] - 4th floor tt3 bed 409. Nurse to call report to . The accepting physician is Dr. Rios. 07:06 Report received from BALA Queen. tw2 07:11 Primary Nurse role handed off by Bret Reyna tw2 07:11 Lorena Guzmán, BALA is Primary Nurse. tw2 07:30 nurse monitoring on. Pulse ox on. NIBP on. Warm blanket given. tw2 09:08 Patient transferred, IV remains in place. tw2 Administered Medications: 04:05 Not Given (Duplicate Order): [place] (HYDROcodone-acetaminophen) (7.5 mg-325 mg) 1 tabs lucita PO once; RASS on ADMIN: Combtv4, Very Agttd3, Agttd2, Rstlss1, AlertClm0, Drwsy-1, Lt Sdtn-2, Mod Sdtn-3, Dp Sdtn-4, UnArsble-5 04:05 CANCELLED (Duplicate Order): Ketorolac 30 mg IVP once lucita 04:25 Drug: NS 0.9% 1000 ml Route: IV; Rate: 125 ml/hr; Site: right antecubital; ak2 09:05 Follow up: IV Status: Infusion continued upon transfer tw2 04:26 Drug: morphine 2 mg Route: IVP; Site: left antecubital; ak2 04:26 Drug: Zofran (Ondansetron) 4 mg Route: IVP; Site: left antecubital; ak2 04:26 Drug: Pepcid (famotidine) 20 mg Route: IVP; Site: right antecubital; ak2 04:26 Drug: NS 0.9% 1000 ml Route: IV; Rate: 1 bolus; Site: right antecubital; ak2 04:46 Drug: Cipro (ciprofloxacin) 400 mg Volume: 200 ml; Route: IVPB; Infused Over: 60 mins; ak2 Site: left antecubital; 05:24 Drug: Flagyl (metroNIDAZOLE) 500 mg Volume: 100 ml; Route: IVPB; Rate: 200 ml/hr; ak2 Infused Over: 30 mins; Site: left antecubital; 07:30 Drug: morphine 2 mg {Note: RASS 0.} Route: IVP; Site: left antecubital; tw2 09:07 Follow up: Response: No adverse reaction; Pain is decreased tw2 Outcome: 05:17 ER care complete, transfer ordered by . [facility] 08:27 Transferred by [facility] to [facility], Transfer form completed. sv Note: Report given to Pattie MCKENNA at [facility]' 08: Condition: stable 08:27 Instructed on the need for transfer. 09:09 Patient left the ED. tw2 Signatures: Dispatcher [employer] Samreen Mendez RN Maycol Elena MD MD cha Salyer, Db Ramos RN RN em Wise, Tara, RN RN tw2 Ez Turk 3 Bret Reyna [facility]
--- NOTE | 2020-12-09 07:17 | RAD REPORT ---
EXAM DESCRIPTION: RAD - Chest Single View - 12/09/2020 4:33 am CLINICAL HISTORY: Cough;Abdominal distention COMPARISON: Chest Pa And Lat (2 Views) dated 09/16/2017; Chest Pa And Lat (2 Views) dated 01/01/2017; C hest Single View dated 06/06/2016; CHEST PA AND LAT 2 VIEW dated 06/25/2007; Abdomen Pelvis W Contrast dated 12/09/2020 FINDINGS: No acute cardiopulmonary disease. No edema or evidence of pneumonia. No fractures are iden tified. The heart size is normal. Visualized upper abdomen is unremarkable. IMPRESSION: No acute cardiopulmonary disease or significant change.
--- NOTE | 2020-12-09 07:42 | EKG ---
Test Date: 2020-12-09 Test Time: 04:08:58 Watch Manufacturing Supervisor: MEASUREMENT RESULTS: Intervals: Rate: 74 PA: 140 QRSD: 68 QT: 390 QTc: 432 [place]: P: 55 PA: 140 QRS: -2 T: 33 INTERPRETIVE STATEMENTS: Normal sinus rhythm Cannot rule out Anterior infarct, age undetermined Abnormal ECG Compared to ECG 11/04/2016 21:02:56 Myocardial infarct finding now present Electronically Signed On 12-09-20 07:42:26 CDT by Rohan Ca
[2020-12-09 09:15] VITALS: TEMP 97.5
[2020-12-09 09:16] VITALS: O2SAT 98
[2020-12-09 09:21] VITALS: BP 139/68
--- NOTE | 2020-12-09 10:24 | RAD REPORT ---
EXAM DESCRIPTION: CTAbdomen Pelvis W Contrast - 12/09/2020 6:49 am COMPARISON: None. CLINICAL HISTORY: ABD PAIN TECHNIQUE: CT of the abdomen and pelvis was acquired with IV contrast material. Coronal and sagitt al reconstructions were obtained. Automated exposure control was utilized on this examination as a dose lowering technique. FINDINGS: Lung bases: Clear. Liver: Normal. Gallbladder and biliary: Normal gallbladder. Unremarkable biliary tree. Pancreas: Normal. Spleen: Normal. Adrenal glands: Normal adrenal glands. Kidneys: Small right renal cyst. Stomach and Small Bowel: Small hiatal hernia. There are dilated loops of small bowel with air-fluid l evels in the lower abdomen. These loops also demonstrate wall thickening. There is a transition point within the distal ileum on series 501 image 52 at an area of bowel wall thickening. Urinary bladder: Decompressed. Uterus and Adnexa: Normal. Colon and Appendix: Surgical changes of the cecum. No evidence of appendicitis. Retroperitoneum and lymph nodes: Normal. Vascular: Moderate atherosclerosis. Peritoneal cavity: Trace pelvic fluid is likely reactive. Musculoskeletal and soft tissues: Soft tissues are unremarkable. Lumbar spondylosis with grade 1 ante rolisthesis L5 on S1. No aggressive bone lesions. No compression fracture. IMPRESSION: 1. Infectious or inflammatory enteritis of the ileum with early obstruction or ileus due to wall thickening or less likely stricture. 2. Small hiatal hernia. 3. Surgical changes of the cecum. 4. Moderate atherosclerosis. Electronically signed by: Sarthak Camejo MD 12/09/2020 5:03 AM CDT Due to temporary technical issues with the PACS/Fluency reporting system, reports are being signed by the in house radiologist without review as a courtesy to ensure prompt reporting. The interpreting r adiologist is fully responsible for the content of the report.
== END 2020-12-09 09:09 | disposition short-term general hospital (02) ==
LOC: ER 03:32
DX: K50.012 Crohn's disease of small intestine with intestinal obstruction (principal); R11.10 Vomiting, unspecified; Z88.5 Allergy status to narcotic agent
CPT/HCPCS: 93005; 87088; 85025; 87086; 80048; 36415; 83735; 85610; 82565; 80076; 83605; 84484; 83690; 83880; 74177; 71045; 99285; Q9967; J2270 ×2; J7030; J2405; J0744

== ENCOUNTER 2021-01-11 10:00 | Day surgery (SDC) | payer OTHER ==
[2021-01-11 10:36] VITALS: BMI 22.4
[2021-01-11] MEDS ORDERED: NA CHLORIDE 0.9% IV ONE (11:00)
[2021-01-11] MEDS ORDERED: INFLIXIMAB DYYB IV ONE (11:00)
[2021-01-11] MEDS ORDERED: NA CHLORIDE 0.9% 50 ML ONE (11:17)
[2021-01-11 13:38] VITALS: BP 137/68; TEMP 98.2; O2SAT 98
== END 2021-01-11 13:49 | disposition home or self-care (01) ==
LOC: DS 10:00
PROVIDERS: ATTEND Internal Medicine Gastroenterology
DX: K50.911 Crohn's disease, unspecified, with rectal bleeding (principal)
CPT/HCPCS: 96365; 96366; Q5103; J7050

== ENCOUNTER 2021-02-21 08:07 | Day surgery (SDC) | payer OTHER ==
[2021-02-21] MEDS ORDERED: NA CHLORIDE 0.9% IV ONE (09:00)
[2021-02-21] MEDS ORDERED: INFLIXIMAB DYYB IV ONE (09:00)
[2021-02-21 12:54] VITALS: BMI 22.1
[2021-02-21 12:57] VITALS: BP 125/69; TEMP 97.4; O2SAT 99
== END 2021-02-21 11:35 | disposition home or self-care (01) ==
LOC: DS 08:07
PROVIDERS: ATTEND Internal Medicine Gastroenterology
DX: K50.911 Crohn's disease, unspecified, with rectal bleeding (principal)
CPT/HCPCS: 96365; 96366; J7050; Q5103

== ENCOUNTER 2021-04-04 07:39 | Day surgery (SDC) | payer OTHER ==
[2021-04-04] MEDS ORDERED: INFLIXIMAB DYYB IV ONE (08:00)
[2021-04-04] MEDS ORDERED: NA CHLORIDE 0.9% IV ONE (08:00)
[2021-04-04 08:19] VITALS: BMI 22.1
[2021-04-04] MEDS ORDERED: NA CHLORIDE 0.9% 250 ML ONE (09:03)
[2021-04-04 13:36] VITALS: BP 124/67; TEMP 98.3; O2SAT 99
== END 2021-04-04 11:18 | disposition home or self-care (01) ==
LOC: DS 07:39
PROVIDERS: ATTEND Internal Medicine Gastroenterology
DX: K50.911 Crohn's disease, unspecified, with rectal bleeding (principal)
CPT/HCPCS: 96365; 96366; Q5103; J7050 ×2

== ENCOUNTER 2021-05-15 10:30 | Day surgery (SDC) | payer OTHER ==
[2021-05-15] MEDS ORDERED: LIDOCAINE 1% MPF 30 ML VIAL ONE (10:55)
[2021-05-15] MEDS ORDERED: NA CHLORIDE 0.9% 250 ML IV SCH (11:00)
[2021-05-15] MEDS ORDERED: DIPHENHYDRAMINE 25 MG TAB/CAP PO ONE (11:00)
[2021-05-15] MEDS ORDERED: ACETAMINOPHEN 325 MG TABLET PO ONE (11:00)
[2021-05-15] MEDS ORDERED: NA CHLORIDE 0.9% IV ONE (11:30)
[2021-05-15] MEDS ORDERED: INFLIXIMAB DYYB IV ONE (11:30)
[2021-05-15 14:36] VITALS: BMI 22.3
[2021-05-15 15:01] VITALS: BP 126/70; TEMP 98.7; O2SAT 98
== END 2021-05-15 13:52 | disposition home or self-care (01) ==
LOC: DS 10:30
PROVIDERS: ATTEND Internal Medicine Gastroenterology
DX: K50.911 Crohn's disease, unspecified, with rectal bleeding (principal)
CPT/HCPCS: 96365; 96366; Q5103; J7050

== ENCOUNTER 2021-06-21 07:40 | Day surgery (SDC) | payer OTHER ==
[2021-06-21] MEDS ORDERED: NA CHLORIDE 0.9% 250 ML ONE (07:56)
[2021-06-21] MEDS ORDERED: NA CHLORIDE 0.9% IV ONE (08:00)
[2021-06-21] MEDS ORDERED: INFLIXIMAB DYYB IV ONE (08:00)
[2021-06-21 08:47] VITALS: BMI 22.3
[2021-06-21 10:32] VITALS: TEMP 97.4
[2021-06-21 11:25] VITALS: BP 130/77; O2SAT 98
== END 2021-06-21 11:20 | disposition home or self-care (01) ==
LOC: DS 07:40
PROVIDERS: ATTEND Internal Medicine Gastroenterology
DX: K50.911 Crohn's disease, unspecified, with rectal bleeding (principal)
CPT/HCPCS: 96365; 96366; Q5103; J7050 ×2

== ENCOUNTER 2021-08-03 07:40 | Day surgery (SDC) | payer OTHER ==
[2021-08-03] MEDS ORDERED: INFLIXIMAB DYYB IV ONE (08:00)
[2021-08-03] MEDS ORDERED: NA CHLORIDE 0.9% IV ONE (08:00)
[2021-08-03 08:39] VITALS: BMI 22.4
[2021-08-03] MEDS ORDERED: NA CHLORIDE 0.9% 50 ML ONE (10:26)
[2021-08-03 11:02] VITALS: BP 125/72; TEMP 98.3; O2SAT 98
== END 2021-08-03 11:00 | disposition home or self-care (01) ==
LOC: DS 07:40
PROVIDERS: ATTEND Internal Medicine Gastroenterology
DX: K50.911 Crohn's disease, unspecified, with rectal bleeding (principal)
CPT/HCPCS: 96365; 96366; Q5103; J7050

== ENCOUNTER 2021-10-26 08:04 | Day surgery (SDC) | payer OTHER ==
[2021-10-26] MEDS ORDERED: NA CHLORIDE 0.9% 250 ML ONE (08:35)
[2021-10-26] MEDS ORDERED: INFLIXIMAB ABDA IV SCH (09:00)
[2021-10-26] MEDS ORDERED: NA CHLORIDE 0.9% IV SCH (09:00)
[2021-10-26 09:06] VITALS: BMI 21.9
[2021-10-26 10:36] VITALS: TEMP 97.4
[2021-10-26 11:53] VITALS: BP 146/66; O2SAT 96
== END 2021-10-26 11:30 | disposition home or self-care (01) ==
LOC: DS 08:04
PROVIDERS: ATTEND Internal Medicine Gastroenterology
DX: K50.911 Crohn's disease, unspecified, with rectal bleeding (principal)
CPT/HCPCS: 96365; 96366; J7050 ×2

== ENCOUNTER 2021-12-22 08:29 | Day surgery (SDC) | payer OTHER ==
[2021-12-22] MEDS ORDERED: NA CHLORIDE 0.9% 250 ML ONE (08:43)
[2021-12-22] MEDS ORDERED: INFLIXIMAB ABDA IV ONE (09:00)
[2021-12-22] MEDS ORDERED: NA CHLORIDE 0.9% IV ONE (09:00)
[2021-12-22 12:45] VITALS: BMI 21.9
[2021-12-22 12:50] VITALS: O2SAT 95
[2021-12-22 12:53] VITALS: BP 118/67; TEMP 98
== END 2021-12-22 12:00 | disposition home or self-care (01) ==
LOC: DS 08:29
PROVIDERS: ATTEND Internal Medicine Gastroenterology
DX: K50.911 Crohn's disease, unspecified, with rectal bleeding (principal)
CPT/HCPCS: 96365; 96366; J7050 ×2

== ENCOUNTER 2022-02-06 09:31 | Day surgery (SDC) | payer OTHER ==
[2022-02-06] MEDS ORDERED: Zoledronic Acid/Mannitol/Water 5 MG/100 ML INFUS.BOT IV ONE (10:00)
[2022-02-06] MEDS ORDERED: INFLIXIMAB ABDA IV ONE ×2 (10:00→10:30)
[2022-02-06] MEDS ORDERED: NA CHLORIDE 0.9% IV ONE ×2 (10:00→10:30)
[2022-02-06] MEDS ORDERED: NA CHLORIDE 0.9% 250 ML ONE (11:36)
[2022-02-06 13:10] VITALS: BMI 21.9
[2022-02-06 13:13] VITALS: BP 131/88; TEMP 98; O2SAT 98
== END 2022-02-06 12:45 | disposition home or self-care (01) ==
LOC: DS 09:31
PROVIDERS: ATTEND Internal Medicine Gastroenterology
DX: K50.911 Crohn's disease, unspecified, with rectal bleeding (principal)
CPT/HCPCS: 96365; 96366; J3489; J7050

== ENCOUNTER 2022-03-21 10:08 | Day surgery (SDC) | payer OTHER ==
[2022-03-21] MEDS ORDERED: NA CHLORIDE 0.9% 250 ML ONE (10:22)
[2022-03-21] MEDS ORDERED: INFLIXIMAB ABDA IV ONE (11:00)
[2022-03-21] MEDS ORDERED: NA CHLORIDE 0.9% IV ONE (11:00)
[2022-03-21 11:03] VITALS: O2SAT 100
[2022-03-21 11:04] VITALS: BMI 20.7
[2022-03-21 13:27] VITALS: TEMP 98
[2022-03-21 13:28] VITALS: BP 138/68
== END 2022-03-21 13:25 | disposition home or self-care (01) ==
LOC: DS 10:08
PROVIDERS: ATTEND Internal Medicine Gastroenterology
DX: K50.911 Crohn's disease, unspecified, with rectal bleeding (principal)
CPT/HCPCS: 96365; 96366; J7050 ×2

== ENCOUNTER 2022-05-02 08:09 | Day surgery (SDC) | payer OTHER ==
[2022-05-02] MEDS ORDERED: NA CHLORIDE 0.9% 250 ML ONE (08:43)
[2022-05-02] MEDS ORDERED: INFLIXIMAB ABDA IV ONE (09:00)
[2022-05-02] MEDS ORDERED: NA CHLORIDE 0.9% IV ONE (09:00)
[2022-05-02 11:54] VITALS: TEMP 97.9; BMI 20.5
[2022-05-02 12:03] VITALS: O2SAT 100
[2022-05-02 12:04] VITALS: BP 140/64
== END 2022-05-02 11:28 | disposition home or self-care (01) ==
LOC: DS 08:09
PROVIDERS: ATTEND Internal Medicine Gastroenterology
DX: K50.911 Crohn's disease, unspecified, with rectal bleeding (principal)
CPT/HCPCS: 96365; 96366; J7050 ×2

== ENCOUNTER 2022-06-11 07:30 | Day surgery (SDC) | payer OTHER ==
[2022-06-11] MEDS ORDERED: NA CHLORIDE 0.9% IV ONE (08:00)
[2022-06-11] MEDS ORDERED: INFLIXIMAB ABDA IV ONE (08:00)
[2022-06-11] MEDS ORDERED: NA CHLORIDE 0.9% 250 ML ONE (08:04)
[2022-06-11 08:28] VITALS: BMI 21.0
[2022-06-11 12:44] VITALS: BP 123/71; TEMP 97.9; O2SAT 98
== END 2022-06-11 10:40 | disposition home or self-care (01) ==
LOC: DS 07:30
PROVIDERS: ATTEND Internal Medicine Gastroenterology
DX: K50.911 Crohn's disease, unspecified, with rectal bleeding (principal)
CPT/HCPCS: 96365; 96366; J7050; Q5104

== ENCOUNTER 2022-07-20 07:30 | Day surgery (SDC) | payer OTHER ==
[2022-07-20] MEDS ORDERED: NA CHLORIDE 0.9% 250 ML ONE (07:59)
[2022-07-20] MEDS ORDERED: NA CHLORIDE 0.9% IV ONE (08:00)
[2022-07-20] MEDS ORDERED: INFLIXIMAB ABDA IV ONE (08:00)
[2022-07-20 09:35] VITALS: TEMP 97.9
[2022-07-20 09:36] VITALS: BMI 20.9
[2022-07-20 11:13] VITALS: O2SAT 98
[2022-07-20 11:14] VITALS: BP 126/67
== END 2022-07-20 10:45 | disposition home or self-care (01) ==
LOC: DS 07:30
PROVIDERS: ATTEND Internal Medicine Gastroenterology
DX: K50.911 Crohn's disease, unspecified, with rectal bleeding (principal)
CPT/HCPCS: 96365; 96366; Q5104; J7050 ×2

== ENCOUNTER 2023-01-07 08:00 | Day surgery (SDC) | payer OTHER ==
[2023-01-07] MEDS ORDERED: NA CHLORIDE 0.9% 250 ML ONE (08:40)
[2023-01-07 08:53] VITALS: BMI 21.9
[2023-01-07] MEDS ORDERED: INFLIXIMAB ABDA IV ONE (09:00)
[2023-01-07] MEDS ORDERED: NA CHLORIDE 0.9% IV ONE (09:00)
[2023-01-07 11:17] VITALS: O2SAT 97
[2023-01-07 11:21] VITALS: BP 131/73; TEMP 98.3
== END 2023-01-07 11:00 | disposition home or self-care (01) ==
LOC: DS 08:00
PROVIDERS: ATTEND Internal Medicine Gastroenterology
DX: K50.911 Crohn's disease, unspecified, with rectal bleeding (principal)
CPT/HCPCS: 96365; 96366; Q5104; J7050 ×2

== ENCOUNTER 2023-02-18 08:03 | Day surgery (SDC) | payer OTHER ==
[2023-02-18] MEDS ORDERED: NA CHLORIDE 0.9% 50 ML ONE (08:27)
[2023-02-18] MEDS ORDERED: INFLIXIMAB ABDA IV ONE (09:00)
[2023-02-18] MEDS ORDERED: NA CHLORIDE 0.9% IV ONE (09:00)
[2023-02-18 09:24] VITALS: BMI 21.2
[2023-02-18] MEDS ORDERED: NA CHLORIDE 0.9% 100 ML ONE (10:05)
[2023-02-18 11:42] VITALS: BP 124/68; TEMP 97.4; O2SAT 98
== END 2023-02-18 11:08 | disposition home or self-care (01) ==
LOC: DS 08:03
PROVIDERS: ATTEND Internal Medicine Gastroenterology
DX: K50.911 Crohn's disease, unspecified, with rectal bleeding (principal)
CPT/HCPCS: 96365; 96366; Q5104; J7050

== ENCOUNTER 2023-03-26 08:09 | Day surgery (SDC) | payer OTHER ==
[2023-03-26] MEDS ORDERED: NA CHLORIDE 0.9% 250 ML ONE (08:51)
[2023-03-26] MEDS ORDERED: NA CHLORIDE 0.9% IV ONE (09:00)
[2023-03-26] MEDS ORDERED: INFLIXIMAB ABDA IV ONE (09:00)
== END 2023-03-26 11:10 | disposition home or self-care (01) ==
LOC: DS 08:09
PROVIDERS: ATTEND Internal Medicine Gastroenterology
DX: K50.911 Crohn's disease, unspecified, with rectal bleeding (principal)
CPT/HCPCS: 96365; 96366; Q5104; J7050 ×2

== ENCOUNTER 2023-06-18 08:23 | Day surgery (SDC) | payer OTHER ==
[2023-06-18] MEDS ORDERED: NA CHLORIDE 0.9% 250 ML ONE (08:29)
[2023-06-18] MEDS ORDERED: INFLIXIMAB IV ONE (09:00)
[2023-06-18] MEDS ORDERED: NA CHLORIDE 0.9% IV ONE (09:00)
[2023-06-18 09:49] VITALS: BMI 21.0
[2023-06-18 11:31] VITALS: BP 109/66; TEMP 97.4; O2SAT 98
== END 2023-06-18 11:22 | disposition home or self-care (01) ==
LOC: DS 08:23
PROVIDERS: ATTEND Internal Medicine Gastroenterology
DX: K50.911 Crohn's disease, unspecified, with rectal bleeding (principal)
CPT/HCPCS: 96365; 96366; J1745; J7050 ×2

== ENCOUNTER 2023-09-10 09:02 | Day surgery (SDC) | payer OTHER ==
[2023-09-10 09:44] VITALS: BMI 20.9
[2023-09-10] MEDS: INFLIXIMAB IV ONE (09:49)
[2023-09-10] MEDS: NA CHLORIDE 0.9% IV ONE (09:49)
[2023-09-10] MEDS: NA CHLORIDE 0.9% 100 ML ONE (11:55)
[2023-09-10 15:59] VITALS: BP 134/67; TEMP 97.7; O2SAT 98
== END 2023-09-10 12:25 | disposition home or self-care (01) ==
LOC: DS 09:02
PROVIDERS: ATTEND Internal Medicine Gastroenterology
DX: K50.911 Crohn's disease, unspecified, with rectal bleeding (principal)
CPT/HCPCS: 96365; 96366; J1745; J7050